=== PATIENT | female | born 1975 | race Caucasian/White ===

== ENCOUNTER 2017-05-06 08:22 | Observation (INO) | payer OTHER, SELFPAY ==
[2017-05-06] VITALS (7 sets, daily range): BP systolic 101–145; BP diastolic 60–90; PULSE 71–105; RESP 16–26; TEMP 37.1–37.3; O2SAT 97–100; BMI 26.8; BMI 26.4
--- NOTE | 2017-05-06 08:40 | EKG12_ITS ---
Test Reason : NECKPAIN Blood Pressure : / mmHG Vent. Rate : 083 BPM Atrial Rate : 083 BPM P-R Int : 152 ms QRS Dur : 072 ms QT Int : 364 ms P-R-T Axes : 066 065 074 degrees QTc Int : 427 ms Normal sinus rhythm Nonspecific T wave abnormality Abnormal ECG Confirmed by JOSE HUGGINS, JOSE ([id number]), editor sound ARIELLE DIANE ([id number]) on 05/10/2017 4:22:11 PM Referred By: Russell Mccray Confirmed By:OJSE GARCIA MD
--- NOTE | 2017-05-06 08:43 | CT_ITS ---
STUDY: CTA CHEST REASON FOR EXAM: Female, 41 years old. Back pain and left upper extremity pain. RADIATION DOSAGE (If Supplied By Facility): CTDIvol = ( 6.65 ) mGy, DLP = ( 327.94 ) mGycm TECHNIQUE: The examination was performed with the intravenous administration of 100 ml of Isovue 300 contrast material. Post-processing of the angiographic images was performed, with multiplanar reformation and 3D reconstruction. Individualized dose optimization techniques were used for this CT. COMPARISON: None. FINDINGS: Normal enhancement of the main pulmonary artery and right and left pulmonary arteries. Normal enhancement of the bilateral peripheral pulmonary arteries. There is no demonstrated pulmonary embolism. Normal thoracic aorta and visualized great vessels. There is no demonstrated aortic dissection. Normal heart and pericardium. Normal mediastinum. Normal hilar regions. Normal visualized trachea and bronchi. The lungs are well expanded. Normal pulmonary parenchyma. Normal pleura. Normal chest wall structures. Normal osseous structures. Normal visualized upper abdomen. CT/CTA Abdomen W/WO Contrast IMPRESSION: Normal CTA chest examination, without a demonstrated pulmonary embolism or arterial dissection. Electronically Signed: Iain Rose MD at 10:53 EST Tel [phone], Service support ,
--- NOTE | 2017-05-06 08:43 | CT_ITS ---
STUDY: CTA CHEST REASON FOR EXAM: Female, 41 years old. Back pain and left upper extremity pain. RADIATION DOSAGE (If Supplied By Facility): CTDIvol = ( 6.65 ) mGy, DLP = ( 327.94 ) mGycm TECHNIQUE: The examination was performed with the intravenous administration of 100 ml of Isovue 300 contrast material. Post-processing of the angiographic images was performed, with multiplanar reformation and 3D reconstruction. Individualized dose optimization techniques were used for this CT. COMPARISON: None. FINDINGS: Normal enhancement of the main pulmonary artery and right and left pulmonary arteries. Normal enhancement of the bilateral peripheral pulmonary arteries. There is no demonstrated pulmonary embolism. Normal thoracic aorta and visualized great vessels. There is no demonstrated aortic dissection. Normal heart and pericardium. Normal mediastinum. Normal hilar regions. Normal visualized trachea and bronchi. The lungs are well expanded. Normal pulmonary parenchyma. Normal pleura. Normal chest wall structures. Normal osseous structures. Normal visualized upper abdomen. CT/CTA Chest W/WO Contrast IMPRESSION: Normal CTA chest examination, without a demonstrated pulmonary embolism or arterial dissection. Electronically Signed: Iain Rose MD at 10:53 EST Tel [phone], Service support ,
--- NOTE | 2017-05-06 08:54 | ED.DCSUM_ITS ---
- ER Visit Summary Date of Service: 05/06/17 Chief Complaint: Back pain History of Present Illness: The patient is a 41 F presenting with severe pain in her low back bilateral buttocks radiating all the way down both legs simultaneously, started gradually yesterday when she woke up for a nap in the afternoon, gradually worsening, did not notice left upper extremity involvement until this morning, no right upper extremity involvement. She states she has pain in her left shoulder and all the way down her left arm involving her entire hand, it is numb and painful and all of these 3 extremities. Any movement makes the pain worse. She has not noticed weakness of her legs, but the pain is so severe that she does not want to move anything anyway. She denies any abdominal or chest pain. No upper back or neck pain. No recent injuries, overuse, heavy lifting, or any other physical activity that she can think of to explain the symptoms. No bowel or bladder dysfunction symptoms. Never had anything like this before, has no chronic back issues. 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 She had a DVT in 1 of her legs at one point in time when she was doing a lot of sitting for a [email or web address] sports tournament, she had swelling with that, it was treated that was remote and she has no symptoms like that now. Other than that, she takes medications for migraines and no other medical problems. Further history obtained a little later adds that she has had some mild soreness in both of her legs off and on for the last few days, but it would go away. The last time she had those symptoms, she was concerned she was having recurrence of her DVT and had an ultrasound of her lower extremities that were negative for DVT. Physical Examination: In painful distress, very anxious, hyperventilating. Tearful. Blood pressure 145/90, heart rate 105, respirations 26, afebrile with pulse ox 100 on room air. She screams in severe pain with barely touching her lower extremities, performing DTRs, and barely moving her toes or foot. Given this, I was not able to perform straight leg raises, but her DTRs are normal, her pulses are normal and symmetric, and her toes are downgoing with no clonus. She does not want to move anything because it hurts too bad to do so, so strength testing in the lower extremities is limited. Sensation is grossly intact but she states things feel tingly and symmetrically. Similar exam in the left upper extremity although strength is excellent and symmetric with the right as are her pulses. There are no rashes or abnormal skin findings or color. She can turn her neck without any difficulty or pain. It is nontender. No meningismus. She is able to rollover with assistance, but it hurt her, she has some tenderness in the sciatic notches bilaterally but nowhere else, there are no rashes. No CVA tenderness. Abdomen is benign with no pulsatile mass. Heart is regular and if she has equal breath sounds bilaterally, but the rest of the thoracic exam is limited secondary to the patient moaning and crying. Test Results: EKG is normal with sinus rhythm at 83. Labs including troponin unremarkable. CTA chest, abdomen, pelvis negative. Emergency Department Course and Treatment: Aortic dissection was ruled out as cause for the symptoms. After her pain was controlled with morphine, I reevaluated her, she has motor weakness in both lower extremities, without being limited by pain. I discussed with neurology Dr. Mitchell, who evaluated her in the ED, and advised that her reflexes were normal but she truly was weak in her lower extremities and he recommended STAT MRI of the low back, but also of the brain and cervical spine, given her all of her symptoms, with and without contrast. Disposition will be pending the results of MRI. At this time patient is comfortable. Disposition: Pending MRI results Impression: Acute low back pain Bilateral lower extremity weakness and paresthesias Left upper extremity paresthesias This note was generated with [employer] dictation software. It may contain incorrect words, spelling, and punctuation that were not noted in review of the chart prior to signing ED Disposition - Plan for ED Patient: Chief Complaint: Back Referrals: Joon Han [Family Provider] -
[2017-05-06] MEDS: Ondansetron 4 MG/2 ML Vial IV (08:58)
[2017-05-06 09:22] LABS: Anion Gap 10 (5-15); BUN 8 mg/dL (7-18); BUN/Creat Ratio 8.7 RATIO (10-20); Calcium,Total 8.8 mg/dL (8.5-10.1); Chloride 107 mmol/L (98-107); Creatinine, Serum 0.92 mg/dL (0.55-1.02); EST Glomerular Filtration Rate 72 mL/min (>60); Est Glom Filt Rate - Afr Amer 87 mL/min (>60); Estimated Creatinine Clearance 76.09 ml/min; Glucose 121 mg/dL (74-106); Potassium 3.5 mmol/L (3.5-5.1); Sodium Level 137 mmol/L (136-145)
[2017-05-06 09:41] LABS: Absolute Lymphocyte Count 0.57 X10^3/ul (0.83-4.51); Basophil# 0.01 X10^3/uL; Basophil% 0.1 % (0-1); Hematocrit 38.6 % (37-47); Hemoglobin 13.1 g/dl (12.0-15.0); Lymphocyte # 0.57 X10^3/ul (4.0); Lymphocyte % 4.4 % (19-41); Mean Corp Hgb Conc 33.9 g/gl (32-36); Mean Corpuscular Hgb 28.7 pg (27.0-32.0); Mean Corpuscular Volume 84.5 fL (81-99); Mean Platelet Vol. 10.7 fl (6.2-12.0); Monocyte# 0.42 X10^3/uL; Monocyte% 3.2 % (0-10); Neutrophil % 92.1 % (47-70); Platelet Count 211 K/mm3 (150-450); RBC Distribution Width SD 39.9 fl (35.1-43.9); Red Blood Count 4.57 M/mm3 (4.2-5.4)
[2017-05-06 09:42] LABS: Differential Indicated SCAN CRITERIA MET; POSITIVE COUNT NO; POSITIVE DIFFERENTIAL YES; POSITIVE MORPHOLOGY NO
--- NOTE | 2017-05-06 12:22 | MRI_ITS ---
STUDY: MRI LUMBAR SPINE WITH AND WITHOUT CONTRAST REASON FOR EXAM: Female, 41 years old. Bilateral lower extremity weakness. TECHNIQUE: Standardized fat and water weighted pulse sequences were obtained in the sagittal and axial planes. 7.5 ml of Gadavist contrast material was administered for the contrast portion of the examination. COMPARISON: None FINDINGS: T12-L1: Normal endplates. Normal disc height, signal and morphology. Normal bilateral facet joints. Normal central canal and bilateral lateral recesses. Normal bilateral intervertebral neural foramina. Normal lumbar lordosis. There is no substantial scoliosis. Normal conus medullaris that terminates at the L1-2 level. L1-2: Normal endplates. Normal disc height, signal and morphology. Normal bilateral facet joints. Normal central canal and bilateral lateral recesses. Normal bilateral intervertebral neural foramina. L2-3: Normal endplates. Normal disc height, signal and morphology. Normal bilateral facet joints. Normal central canal and bilateral lateral recesses. Normal bilateral intervertebral neural foramina. L3-4: Normal endplates. Normal disc height, signal and morphology. Normal bilateral facet joints. Normal central canal and bilateral lateral recesses. Normal bilateral intervertebral neural foramina. L4-5: Normal endplates. Normal disc height, signal and morphology. Normal bilateral facet joints. Normal central canal and bilateral lateral recesses. Normal bilateral intervertebral neural foramina. L5-S1: Normal endplates. Normal disc height, signal and morphology. Normal bilateral facet joints. Normal central canal and bilateral lateral recesses. Normal bilateral intervertebral neural foramina. Normal visualized sacral ala. Normal visualized paraspinous soft tissue structures. There is no demonstrated abnormal enhancement. MRI/Spine Lumbar W/WO Contrast IMPRESSION: Normal enhanced and unenhanced MR examination of the lumbar spine. Electronically Signed: Marissa Cuenca MD at 16:58 EST , Service support ,
--- NOTE | 2017-05-06 12:22 | MRI_ITS ---
STUDY: MRI BRAIN WITH AND WITHOUT CONTRAST REASON FOR EXAM: Female, 41 years old. Bilateral lower extremity weakness. Questionable Guillian Mico. TECHNIQUE: Standardized multiplanar fat and water weighted pulse sequences were obtained. 7.5 ml of Gadavist contrast material was administered intravenously for the contrast portion of the examination. Several images are limited by patient motion. COMPARISON: None. FINDINGS: Normal size of the ventricles and extra-axial spaces for the patient's age. Normal white matter tracts of the supratentorial brain. There is no evidence for recent intracranial ischemia or other cause of cytotoxic edema on diffusion weighted imaging (DWI). Normal T2* images of the brain without demonstrated susceptibility artifact. There is no demonstrated hemosiderin stain. Normal bilateral basal ganglia. Normal thalami. There is no extra-axial fluid accumulation. Normal flow voids within the major intracranial circulation suggesting patency by spin echo criteria. Normal venous enhancement. There is questionable leptomeningeal enhancement involving the left cerebellum and occipital lobe. There is also questionable subtle leptomeningeal enhancement involving the occipital lobes and inferior cerebral hemispheres.. Normal sella turcica, pituitary gland, infundibular stalk, optic chiasm and hypothalamus. Normal tectal plate and pineal gland. Normal midbrain, jung and medulla. Normal cerebellum. Normal basal cisterns. Normal bilateral temporal bones. Normal bilateral internal auditory canals. No demonstrated orbital abnormality, within the constraints of a routine brain study. There is mucoperiosteal inflammatory disease of the paranasal sinuses consistent with mild chronic sinusitis. Normal calvarium and skull base. Normal visualized soft tissue structures. Normal visualized upper cervical spine. MRI/Brain W/WO Contrast IMPRESSION: Questionable leptomeningeal enhancement involving the posterior fossa and occipital lobes. This could be the result of meningitis. Suggest clinical correlation and correlation with lumbar puncture. Electronically Signed: Marissa Cuenca MD at 16:46 EST , Service support ,
--- NOTE | 2017-05-06 12:22 | MRI_ITS ---
STUDY: MRI CERVICAL SPINE WITH AND WITHOUT CONTRAST REASON FOR EXAM: Female, 41 years old. Bilateral lower extremity and left upper extremity weakness with numbness and headache. TECHNIQUE: Standardized fat and water weighted pulse sequences were obtained in the sagittal and axial following I.V. administration of 7.5 ml of Gadavist contrast material. COMPARISON: Prior comparison studies are not available for review at this time. FINDINGS: Normal foramen magnum and brainstem-cervical cord junction. Normal craniovertebral junction. Normal anterior atlantoaxial articulation. Normal odontoid process. Normal cervical lordosis. Normal vertebral bodies and posterior osseous elements. C2-3: Normal endplates. Normal disc height, signal and morphology. Normal central canal and intervertebral neural foramina. C3-4: Normal endplates. Normal disc height, signal and morphology. Normal central canal and intervertebral neural foramina. C4-5: Normal endplates. Normal disc height, signal and morphology. Normal central canal and intervertebral neural foramina. C5-6: Normal endplates. Normal disc height, signal and morphology. Normal central canal and intervertebral neural foramina. C6-7: Normal endplates. Normal disc height, signal and morphology. Normal central canal and intervertebral neural foramina. C7-T1: Normal endplates. Normal disc height, signal and morphology. Normal central canal and intervertebral neural foramina. Normal cervical cord. There is no demonstrated cervical cord syrinx cavity. Normal visualized soft tissue structures. MRI/Spine Cervical W/WO Contrast IMPRESSION: Normal unenhanced and enhanced MR examination of the cervical spine. Electronically Signed: Marissa Cuenca MD at 16:51 EST , Service support ,
[2017-05-06 12:42] LABS: AST(SGOT) 12 U/L (15-37); Alanine Aminotransfer ALT/SGPT 17 U/L (13-56); Albumin, Serum 3.8 g/dL (3.2-5.0); Alkaline Phosphatase 50 U/L (45-117); Bilirubin, Direct 0.19 mg/dL (0.00-0.30); Protein, Total 7.8 g/dL (6.4-8.2)
[2017-05-06] MEDS: Ketorolac 30 MG/ML Syringe IV ×2 (13:41→21:12)
--- NOTE | 2017-05-06 14:34 | CON.PCM_ITS ---
Problem List (1) Lumbar radicular pain Status: Acute (2) Weakness of both legs Status: Acute Reason for Consult Date of Consultation: 05/06/17 Reason for Consultation: severe lower back pain, with radicular symptoms and weakness of the legs History of Present Illness: The patient is a 41 year old CF with PMH Migraines, H/O DVT admitted with severe low back pain with radicular symptoms and weakness of the legs. Per patient she went for the nap yesterday (05/05/17) and woke up at around 4 pm and started having severe lower back pain, was getting worse through the night, and this morning she was unable to walk and had to hold on to stuff to walk, felt it was due to weakness and severe pain in the back radiating to the legs, denies any urinary incontinence or bowel incontinence. She also complaints of tingling numbness in both LE, left worse than right, also feels there is tingling and numbness in the right UE but denies any arm weakness or severe neck pain at present. Has severe KILGORE at present, left sided, with photophobia and phonophobia, has had nausea with the KILGORE, has migraines about 2 times a month , is not on any preventative, per patient may take imitrex as needed. 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 [] Past Medical History Allergies No Known Allergies Allergy (Verified 05/06/17 08:27) Home Medications: Ambulatory Orders Medication Instructions Recorded Acetaminophen/Codeine #3 1 tablet PO Q6H PRN PRN 05/06/17 [Tylenol#3] Lives: With Family Smoking Status: Never smoker Alcohol: None Drugs: None - *Family History Maternal History Items: No pertinent history Review of Systems Constitutional: Reports: - - complete ROS negative except as documented in HPI Patient Problems: Active and Suspected Problems (Last Reviewed 02/11/17 @ 15:28 by Parvin Us) Lumbar radicular pain (Acute) Weakness of both legs (Acute) Acute low back pain (Acute) Migraine (Acute) - Physical Exam General: Alert, Oriented x3, Cooperative HEENT: Atraumatic, PERRLA, EOMI, Normocephalic Neck: Supple, No JVD, Negative Carotid Bruits Lungs: Clear to auscultation, Normal air movement Cardiovascular: Regular rate, No murmurs Abdomen: Bowel Sounds Present, Soft, Non Tender Extremities: No edema, Capillary Refill Less than 3 Seconds Skin: No rashes, No breakdown Musculoskeletal: No Tenderness to Palpation of Joints or Extremities Neurological: - - consious, alert, CN 2-12 grossly intact, power 5/5 both UE, 3/ 5 both LE limited by pain and weakness, decreased sensation to light touch in the left LE below the knee, no sensory level at the torso, no abnormal joint position virbation on examination, has severe pain and SLRT could not be done, Reflexes +2 B/L B/S/T anad +3 B/L K/A, no clonus, plantars B/L Flexor, no cerebellar signs, gait deferred, fundus not visualized. Psych/Mental Status: Normal Affect, Appropriate Vital Signs Temp Pulse Resp BP Pulse Ox 98.8 F 84 16 125/76 H 97 05/06/17 08:23 05/06/17 13:43 05/06/17 13:43 05/06/17 13:43 05/06/17 13:43 Oxygen Delivery Method Room Air Weight: 75.4 kg Body Mass Index (BMI) 26.8 Laboratory Tests Past 24 Hrs 05/06/17 05/06/17 05/06/17 08:55 08:55 08:55 WBC 13.0 H RBC 4.57 Hgb 13.1 Hct 38.6 MCV 84.5 MCH 28.7 MCHC 33.9 RDW 13.0 RDW Differential 39.9 Plt Count 211 MPV 10.7 Immature Gran % (Auto) 0.200 Neut % (Auto) 92.1 H Lymph % (Auto) 4.4 L Blair % (Auto) 3.2 Eos % (Auto) 0.0 Baso % (Auto) 0.1 Absolute Neuts (auto) 12.0 H Absolute Lymphs (auto) 0.57 L Total Counted Not Reportable Differential Comment Sodium 137 Potassium 3.5 Chloride 107 Carbon Dioxide 20.0 L Anion Gap 10 BUN 8 Creatinine 0.92 Estim Creat Clear Calc 76.09 Est GFR (MDRD) Af Amer 87 Est GFR (MDRD) Non-Af 72 BUN/Creatinine Ratio 8.7 L Glucose 121 H Calcium 8.8 Total Bilirubin 0.80 Direct Bilirubin 0.19 AST 12 L ALT 17 Alkaline Phosphatase 50 Troponin I < 0.02 Total Protein 7.8 Albumin 3.8 Globulin 4.0 Assessment/Plan Active and Suspected Problems (Last Reviewed 02/11/17 @ 15:28 by Parvin Us) Lumbar radicular pain (Acute) Weakness of both legs (Acute) Acute low back pain (Acute) Migraine (Acute) The patient is a 41 year old CF with PMH Migraines, H/O DVT admitted with severe low back pain with radicular symptoms and weakness of the legs. Per patient she went for the nap yesterday (05/05/17) and woke up at around 4 pm and started having severe lower back pain, was getting worse through the night, and this morning she was unable to walk and had to hold on to stuff to walk, felt it was due to weakness and severe pain in the back radiating to the legs, denies any urinary incontinence or bowel incontinence. She also complaints of tingling numbness in both LE, left worse than right, also feels there is tingling and numbness in the right UE but denies any arm weakness or severe neck pain at present. Denies any trauma or lifting heavy weight. Has severe KILGORE at present, left sided, with photophobia and phonophobia, has had nausea with the KILGORE, has migraines about 2 times a month, is not on any preventative, per patient may take imitrex as needed. 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 Impression R/O Lumbar radiculopathy vs Compressive myelopathy Unlikely to be GBS at present. Migraine with aura, intractable ?Complicate Migraine Plan -Recommend MRI brain, MRI C spine and MRI L spine w/w/o contrast -Recommend MRI Thoracic spine -Recommend Depakote 1 g IV BID for 48 hours for KILGORE -Recommend Decadron 4 mg IV q 6 hrly for 48 hrs for KILGORE -Recommend Magnesium sulphate 1 g iv once for KILGORE -Recommend Toradol 30 mg IV q 6 hrly prn pain and KILGORE for 24 hrs. -Recommend avoiding triptans due to the h/o DVT in the past. -Further recommendation based on neuroimaging findings -Further medical management per ED and primary team -Fall precautions. -Follow up with Neurology as outpatient for KILGORE in 4-6 weeks after discharge. -GI/DVT prophylaxis -please call with questions if any -Thank you for allowing us to participate in patients care and management I spent 60 minutes of critical care time taking history, doing physical examination, reviewing medical records, coordinating care and counseling patient and her mother. Code Visit Inpatient E&M: 67782 Init Hosp L3
--- NOTE | 2017-05-06 18:02 | HP.PCM_ITS ---
Problem List (1) Acute low back pain Status: Acute Qualifiers: Sciatica laterality: sciatica laterality unspecified (2) Migraine Status: Acute Qualifiers: Migraine type: unspecified Status migrainosus presence: without status migrainosus (3) Lumbar radicular pain Status: Acute (4) Weakness of both legs Status: Acute History of Present Illness Date of Admission: 05/06/17 Chief Complaint: low back pain, bilateral leg weakness The patient is a 41 year old F with past medical history of migrainous headache , remote history of DVT who comes in with acute CVA low back pain which radiate when she woke up from a nap. She denies lifting any heavy objects although she admits to carrying her 30 pound youngest child a lot on her hips. She admits that the pain got worse over the night and in the morning she had to hold onto objects to walk. She noticed this morning that her left upper extremity felt numb and had tingling sensation as well as weakness. She admitted also to photophobia as well as headaches with nausea a This headache feels very much like her usual migraine headache. Patient's vitals in the ED were normal. She was seen by the neurologist in the ED and had STAT imaging of the brain, neck and lumbar spine that were all normal except for a report of leptomeningeal enhancement involving the posterior fossa and occipital lobes which was read as meningitis. She was felt by both ED and neurologist not to have meningitis. She however underwent lumbar puncture and I saw her subsequently. 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 Denies: Fever, Malaise, Weight Change Eyes: Denies: Blurred vision, Cataracts, Conjunctivae Inflammation, Pain, Redness, Vision Change HEENT: Reports: Head Aches. Denies: Difficulty Hearing, Difficulty Swallowing, Dysphasia, Hearing Changes, Sinus Congestion, Sinus Drainage, Sore Throat Cardiovascular: Denies: Chest Pain, Claudication, Heaviness, Light Headedness, Orthopnea, Palpitations, Paroxysmal Noc. Dyspnea, Syncope Respiratory: Denies: Cough, Hemoptysis, Shortness of breath at rest, Shortness of breath upon exertion, Sputum production Gastrointestinal: Denies: Abdominal Pain, Constipation, Hematemesis, Hematochezia, Nausea, Vomiting Genitourinary: Denies: Dysuria, Frequency, Incontinence Musculoskeletal: Denies: Joint Pain, Joint stiffness, Joint swelling, Joint Tenderness Skin: Denies: Rash, Wounds Neurological: Denies: Difficulty swallowing, Focal weakness, Numbness, Tingling Psychiatric: Denies: Anxiety, Depression, Homicidal Ideations, Suicidal Ideations Hematologic/ Lymphatic: Denies: Easy Bruising, Easy Bleeding VTE Information - Inpt Only VTE Present on Admission: No VTE Pharm Prophylaxis ordered?: Yes Patient Problems: Active and Suspected Problems (Last Reviewed 02/11/17 @ 15:28 by Parvin Us) Lumbar radicular pain (Acute) Weakness of both legs (Acute) Acute low back pain (Acute) Migraine (Acute) - Physical Exam General: Alert, Oriented x3, Cooperative, - - in some pain after Lumbar puncture HEENT: Atraumatic, PERRLA, EOMI, Normocephalic Oral: Moist Mucosa Neck: Trachea Midline, - - Did not examine as she was soon after lumbar puncture Lungs: Clear to auscultation, Normal air movement Cardiovascular: Regular rate, Regular Rhythm, Normal S1, Normal S2, No murmurs Abdomen: Bowel Sounds Present, Soft, Non Tender, Non-Distended, No Hepato- splenomegaly Extremities: No edema Skin: No rashes Musculoskeletal: No Tenderness to Palpation of Joints or Extremities Lymphatic: No Cervical, Supraclavicular, or Inguinal Adenopathy Neurological: Cranial nerves II-XII grossly intact, Motor Exam 5/5 strength throughout - in both UE, 3/5 in both LE, limited also by pain, did not check for meningeal signs as she was in pain, post spinal tap. Psych/Mental Status: Normal Affect, Appropriate Vital Signs Temp Pulse Resp BP Pulse Ox 98.8 F 84 16 125/76 H 97 03/02/18 08:23 05/06/17 13:43 05/06/17 13:43 05/06/17 13:43 05/06/17 13:43 Oxygen Delivery Method Room Air Weight: 75.4 kg Body Mass Index (BMI) 26.8 Laboratory Tests Past 24 Hrs 05/06/17 05/06/17 05/06/17 08:55 08:55 08:55 WBC 13.0 H RBC 4.57 Hgb 13.1 Hct 38.6 MCV 84.5 MCH 28.7 MCHC 33.9 RDW 13.0 RDW Differential 39.9 Plt Count 211 MPV 10.7 Immature Gran % (Auto) 0.200 Neut % (Auto) 92.1 H Lymph % (Auto) 4.4 L [place] % (Auto) 3.2 Eos % (Auto) 0.0 Baso % (Auto) 0.1 Absolute Neuts (auto) 12.0 H Absolute Lymphs (auto) 0.57 L Total Counted Not Reportable Differential Comment Sodium 137 Potassium 3.5 Chloride 107 Carbon Dioxide 20.0 L Anion Gap 10 BUN 8 Creatinine 0.92 Estim Creat Clear Calc 76.09 Est GFR (MDRD) Af Amer 87 Est GFR (MDRD) Non-Af 72 BUN/Creatinine Ratio 8.7 L Glucose 121 H Calcium 8.8 Total Bilirubin 0.80 Direct Bilirubin 0.19 AST 12 L ALT 17 Alkaline Phosphatase 50 Troponin I < 0.02 Total Protein 7.8 Albumin 3.8 Globulin 4.0 Assessment/Plan Active and Suspected Problems (Last Reviewed 02/11/17 @ 15:28 by Parvin Us) Lumbar radicular pain (Acute) Weakness of both legs (Acute) Acute low back pain (Acute) Migraine (Acute) 41 year old F with past medical history of migrainous headache, remote history of DVT who comes in with acute CVA low back pain which radiate when she woke up from a nap. 1. Acute low back pain/radicular pain, likely musculoskeletal, MRI of C-spine and lumbar spine negative Plan: Admit to Medsurg for pain control, IV decadron, toradol per neurology recommendations. 2. Acute migrainous headache, will be given depakote IV, magnesium, and decadron. 3. Abnormal MRI brain with findings suggestive of possible meningitis, s/p lumbar puncture, results pending, if suggestive of meningitis, antibiotics will be started. 4. h/o remote DVT 5. DVT PPX -Lovenox SC Code Visit Inpatient E&M: 38698 Init Hosp L3
[2017-05-06 19:39] LABS: Body Fluid Mononuclear WBC # 0.001 10^3/uL; Total Cell Count CSF 0.001 10^3/uL (0.000-0.000); White Count, CSF 0.001 10^3/uL (0.000-0.000)
[2017-05-06 20:15] LABS: Auto B Fluid Analyzer BKGD Ct COUNTS W/IN LIMITS (W/IN LIMITS); Tested Tube # 4
[2017-05-06 20:16] LABS: Appearance CSF (character) CLEAR (Clear); Body Fluid QC Type(s) BF2Q; CSF Color COLORLESS (Colorless); RBC Count, Spinal Fluid 55 /mm-3 (None seen)
[2017-05-06 20:17] LABS: Glucose Spinal Fluid 62 mg/dL (40-75)
[2017-05-06] MEDS: Acetaminophen/Codeine #3 Tablet 1 TABLET PO (21:01)
[2017-05-07 01:00] VITALS: BP 101/60; PULSE 70; RESP 16; TEMP 36.4; O2SAT 99
[2017-05-07 05:51] LABS: Absolute Lymphocyte Count 0.54 X10^3/ul (0.83-4.51); Absolute Neutrophil Count 12.4 X10^3/uL (2.0-7.7); Basophil# 0.01 X10^3/uL; Basophil% 0.1 % (0-1); Hematocrit 37.7 % (37-47); Hemoglobin 12.3 g/dl (12.0-15.0); Lymphocyte # 0.54 X10^3/ul (4.0); Lymphocyte % 4.1 % (19-41); Mean Corp Hgb Conc 32.6 g/gl (32-36); Mean Corpuscular Hgb 28.4 pg (27.0-32.0); Mean Corpuscular Volume 87.1 fL (81-99); Mean Platelet Vol. 10.6 fl (6.2-12.0); Monocyte# 0.33 X10^3/uL; Monocyte% 2.5 % (0-10); Neutrophil # 12.38 X10^3/uL (2.7-7.7); Neutrophil % 93.1 % (47-70); Platelet Count 186 K/mm3 (150-450); RBC Distribution Width CV 13.4 % (11.6-14.6); RBC Distribution Width SD 41.9 fl (35.1-43.9); Red Blood Count 4.33 M/mm3 (4.2-5.4); White Blood Count 13.3 K/mm3 (4.4-11.0)
[2017-05-07 05:53] LABS: Differential Indicated SCAN CRITERIA MET; POSITIVE COUNT NO; POSITIVE DIFFERENTIAL YES; POSITIVE MORPHOLOGY NO
[2017-05-07 06:02] LABS: Anion Gap 6 (5-15); BUN 9 mg/dL (7-18); BUN/Creat Ratio 11.4 RATIO (10-20); Calcium,Total 8.2 mg/dL (8.5-10.1); Chloride 105 mmol/L (98-107); Creatinine, Serum 0.79 mg/dL (0.55-1.02); EST Glomerular Filtration Rate 85 mL/min (>60); Est Glom Filt Rate - Afr Amer 103 mL/min (>60); Estimated Creatinine Clearance 88.62 ml/min; Glucose 136 mg/dL (74-106); Sodium Level 137 mmol/L (136-145)
[2017-05-07] MEDS: Ketorolac 30 MG/ML Syringe IV ×4 (06:13→23:41)
--- NOTE | 2017-05-07 07:18 | MRI_ITS ---
STUDY: MRI THORACIC SPINE WITHOUT CONTRAST REASON FOR EXAM: Female, 41 years old. Neck pain. Patient has left upper extremity weakness. TECHNIQUE: Standardized fat and water weighted pulse sequences were obtained in the sagittal and axial planes. Several images are limited by patient motion. COMPARISON: CT of the chest dated May 06, 2017. FINDINGS: Normal kyphosis of the thoracic spine. There is no substantial scoliosis. T1-2, T2-3, T3-4, T4-5, T5-6, T6-7, T7-8, T8-9, T9-10, T10-11, T11-12: Normal endplates. Normal disc signal, heights and morphology of the corresponding intervertebral discs. Normal central canal and intervertebral neural foramina at the corresponding levels. Normal visualized thoracic cord. Normal conus medullaris that terminates at the L1 level.. The soft tissue structures are unremarkable. There is bilateral basilar dependent atelectasis. MRI/Spine Thoracic (Routine) IMPRESSION: No MR evidence for nerve impingement or significant canal stenosis. Electronically Signed: Marissa Cuenca MD at 11:34 EST , Service support ,
--- NOTE | 2017-05-07 07:34 | PCM.PN.HOSP ---
Patient Problems: Active and Suspected Problems (Last Reviewed 02/11/17 @ 15:28 by Parvin Us) Lumbar radicular pain (Acute) Weakness of both legs (Acute) Acute low back pain (Acute) Migraine (Acute) Subjective: Patient with no acute events overnight per self and per nursing report. She notes marked improvement since initial presentation especially following magnesium. She states mild paresthesias in her bilateral upper extremities and lower extremities but minimal and only in the distal ends near resolution of prior complaint of weakness and pain. Complete resolution of prior migraine with photophobia and phonophobia. Plan which included await lumbar spine and if unremarkable plan discharge to home on current regimen per discussion also with neurology. Patient denies fevers, chills, nausea, emesis, abdominal pain, chest pain or dyspnea. Objective: Physical Examination: General: awake, alert, oriented x 3 and cooperative, seated upright in bedside chair, in no apparent distress. Skin: normal color, turgor, no icterus, cyanosis. HEENT: AT/NC, EOMI, PERRLA, MMM. Lungs: CTA bilaterally, moderate effort, mild decrease BL bases, no rales, ronchi or wheezing. Heart: Regular rate and rhythm; no gallop, rub audible. Abdomen: soft, NTTP, ND, normal BS. Extremities: no cyanosis, clubbing, or edema. Neurological: patient awake, alert, oriented x 3; cognitive function intact; pupils equally reactive to light and accomodation; cranial nerves II-XII grossly normal, moving all 4 extremities, no focal deficits, strength preserved, notes subjective paresthesias only distally U/L extremities. Psychiatric: affect appears normal, no acute evidence of depressive or anxiety feelings. Vitals/I&O's: Vital Signs Temp Pulse Resp BP Pulse Ox 97.5 F L 70 16 101/60 99 05/07/17 01:00 05/07/17 01:00 05/07/17 01:00 05/07/17 01:00 05/07/17 01:00 Oxygen Delivery Method Room Air Weight: 163 lb 12.855 oz Body Mass Index (BMI) 26.4 Intake and Output for Last 24 Hours 05/05/17 05/06/17 05/07/17 23:59 23:59 23:59 Intake Total 440 / 440 Output Total 800 / 800 Balance -360 / -360 Microbiology Past 72 Hours 05/06/17 18:45 Csf, Spinal Fluid Gram Stain - Preliminary Laboratory Results 05/06/17 18:45: CSF Glucose 62, CSF Total Protein 36.0 05/06/17 18:45: Fld Polynuclear WBCs # 0.000, Fld Polynuclear WBCs % 0.0, Fluid Mononuclear WBCs 0.001, Fld Mononuclear WBCs % 100.0, CSF Appearance CLEAR, CSF Color COLORLESS, CSF WBC 0.001 H, CSF RBC 55 H, CSF Cell Count Tube # 4, CSF Total Cell Counted 0.001 H, CSF Comment May follow 05/07/17 05:24: WBC 13.3 H, RBC 4.33, Hgb 12.3, Hct 37.7, MCV 87.1, MCH 28.4, MCHC 32.6, RDW 13.4, RDW Differential 41.9, Plt Count 186, MPV 10.6, Immature Gran % (Auto) 0.200, Neut % (Auto) 93.1 H, Lymph % (Auto) 4.1 L, [place] % (Auto) 2.5, Eos % (Auto) 0.0, Baso % (Auto) 0.1, Absolute Neuts (auto) 12.4 H, Absolute Lymphs (auto) 0.54 L, Total Counted Not Reportable 05/07/17 05:24: Sodium 137, Potassium 4.0, Chloride 105, Carbon Dioxide 26.0, Anion Gap 6, BUN 9, Creatinine 0.79, Estim Creat Clear Calc 88.62, Est GFR (MDRD) Af Amer 103, Est GFR (MDRD) Non-Af 85, BUN/Creatinine Ratio 11.4, Glucose 136 H, Calcium 8.2 L Current Medications Acetaminophen/Codeine Phosphate (Tylenol#3) 1 tablet PO Q6H PRN PRN PRN Reason: HEADACHE Last Admin: 05/06/17 21:01 Dose: 1 tablet Al Hydroxide/Mg Hydroxide (Mylanta Ii) 30 ml PO Q6H PRN PRN PRN Reason: Gastric burning Bisacodyl (Dulcolax) 5 mg PO DAILY PRN PRN PRN Reason: Constipation Dexamethasone Sodium Phosphate (Decadron) 4 mg IV Q6 TODD Stop: 05/09/17 00:01 Last Admin: 05/07/17 06:13 Dose: 4 mg Enoxaparin Sodium (Lovenox) 40 mg SC DAILY@1000 TODD Valproic Acid 1,000 mg/ (Dextrose) 60 mls @ 60 mls/hr IV BID [facility] Stop: 06/17/17 22:01 Last Admin: 05/06/17 22:20 Dose: 60 mls/hr Ketorolac Tromethamine (Toradol) 30 mg IV Q6 [facility] Stop: 05/08/17 00:01 Last Admin: 05/07/17 06:13 Dose: 30 mg Loratadine (Claritin) 10 mg PO DAILY TODD Magnesium Hydroxide (Milk Of Magnesia) 30 ml PO DAILY PRN PRN PRN Reason: Constipation Ondansetron HCl (Zofran) 4 mg IV Q8H PRN PRN PRN Reason: NAUSEA Psyllium Hydrophilic Mucilloid (Metamucil) 1 packet PO DAILY PRN PRN PRN Reason: CONSTIPATION Sodium Chloride () 5 - 30 ml IV UD PRN PRN Reason: SALINE FLUSH Assessment/Plan Active and Suspected Problems (Last Reviewed 02/11/17 @ 15:28 by Parvin Us) Lumbar radicular pain (Acute) Weakness of both legs (Acute) Acute low back pain (Acute) Migraine (Acute) The patient is a 41 y/o F w/ PMHx: Migraines, Hx DVT who presents to the [facility] ED on 05/06/17 with onset severe low back pain, BL LE weakness, paresthesias and radicular pain noted to have started ~ 05/05/17, progressively worsening w/ increasing debility with denied change in bowel/bladder patterns with additionally onset RUE paresthesias with L sided headache, facial pain with photophobia and phonophobia with nausea. (1) BL LE, RUE Paresthesias, Weakness, Radiculopathy: In the ED work-up included CTA abd/chest without acute findings, admission CBC 13 with L shift-->05/07/17 CBC w/ WBC 13.3 w/ L shift, CMP not marked aside glucose 121. Patient admitted to [place], treatment as noted of acute migraine, Neurology consulted with work-up including ? leptomeningeal enhancement involving posterior fossa and occipital lobes, ? meningitis, cervical MRI unremarkable, MRI lumbar spine unremarkable. Awaiting Thoracic Spine MRI. LP obtained w/ pending CSF culture, gram stain, WBC 0.001, RBC 55, total cell counted 0.001, glucose 62, protein 36. Remains afebrile. Reviewed imaging w/ Neurology, they do not feel that there is any enhancement present, LP unremarkable, no evidence clinically for GBS or meningitis. If thoracic lumbar spine unremarkable per discussion with Neurology will plan discharge to home. (2) Acute Persistent Intractable Migraine: Neurology consulted, noted #1 work-up, s/p LP, maintained on IV VPA 1000 mg BID hours, IV Decadron 4mg Q6 hours, IV Toradol 30mg Q6 hours prn, add low dose PO Neurontin 100mg TID with meals, avoid triptans given history of remote DVT. Improved status, plan discharge to home on regimen including Depakote ER 500mg QHS, Neurontin 100mg TID with meals x 1 week, Medrol dose pack with Neurology follow-up in 2 weeks. (3) History of DVT: As noted avoid triptans, maintain on prophylaxis. (4) DVT prophylaxis: SCDs, lovenox.
--- NOTE | 2017-05-07 07:46 | PN_ITS ---
Patient Problems: Active and Suspected Problems (Last Reviewed 02/11/17 @ 15:28 by Parvin Us) Lumbar radicular pain (Acute) Weakness of both legs (Acute) Acute low back pain (Acute) Migraine (Acute) Subjective: Patient with no acute events overnight per self and per nursing report. She notes marked improvement since initial presentation especially following magnesium. She states mild paresthesias in her bilateral upper extremities and lower extremities but minimal and only in the distal ends near resolution of prior complaint of weakness and pain. Complete resolution of prior migraine with photophobia and phonophobia. Plan which included await lumbar spine and if unremarkable plan discharge to home on current regimen per discussion also with neurology. Patient denies fevers, chills, nausea, emesis, abdominal pain, chest pain or dyspnea. Objective: Physical Examination: General: awake, alert, oriented x 3 and cooperative, seated upright in bedside chair, in no apparent distress. Skin: normal color, turgor, no icterus, cyanosis. HEENT: AT/NC, EOMI, PERRLA, MMM. Lungs: CTA bilaterally, moderate effort, mild decrease BL bases, no rales, ronchi or wheezing. Heart: Regular rate and rhythm; no gallop, rub audible. Abdomen: soft, NTTP, ND, normal BS. Extremities: no cyanosis, clubbing, or edema. Neurological: patient awake, alert, oriented x 3; cognitive function intact; pupils equally reactive to light and accomodation; cranial nerves II-XII grossly normal, moving all 4 extremities, no focal deficits, strength preserved , notes subjective paresthesias only distally U/L extremities. Psychiatric: affect appears normal, no acute evidence of depressive or anxiety feelings. Vitals/I&O's: Vital Signs Temp Pulse Resp BP Pulse Ox 97.5 F L 70 16 101/60 99 05/07/17 01:00 05/07/17 01:00 05/07/17 01:00 05/07/17 01:00 05/07/17 01:00 Oxygen Delivery Method Room Air Weight: 163 lb 12.855 oz Body Mass Index (BMI) 26.4 Intake and Output for Last 24 Hours 05/05/17 05/06/17 05/07/17 23:59 23:59 23:59 Intake Total 440 / 440 Output Total 800 / 800 Balance -360 / -360 Microbiology Past 72 Hours 05/06/17 18:45 Csf, Spinal Fluid Gram Stain - Preliminary Laboratory Results 05/06/17 18:45: CSF Glucose 62, CSF Total Protein 36.0 05/06/17 18:45: Fld Polynuclear WBCs # 0.000, Fld Polynuclear WBCs % 0.0, Fluid Mononuclear WBCs 0.001, Fld Mononuclear WBCs % 100.0, CSF Appearance CLEAR, CSF Color COLORLESS, CSF WBC 0.001 H, CSF RBC 55 H, CSF Cell Count Tube # 4, CSF Total Cell Counted 0.001 H, CSF Comment May follow 05/07/17 05:24: WBC 13.3 H, RBC 4.33, Hgb 12.3, Hct 37.7, MCV 87.1, MCH 28.4, MCHC 32.6, RDW 13.4, RDW Differential 41.9, Plt Count 186, MPV 10.6, Immature Gran % (Auto) 0.200, Neut % (Auto) 93.1 H, Lymph % (Auto) 4.1 L, [place] % (Auto) 2.5, Eos % (Auto) 0.0, Baso % (Auto) 0.1, Absolute Neuts (auto) 12.4 H, Absolute Lymphs (auto) 0.54 L, Total Counted Not Reportable 05/07/17 05:24: Sodium 137, Potassium 4.0, Chloride 105, Carbon Dioxide 26.0, Anion Gap 6, BUN 9, Creatinine 0.79, Estim Creat Clear Calc 88.62, Est GFR (MDRD ) Af Amer 103, Est GFR (MDRD) Non-Af 85, BUN/Creatinine Ratio 11.4, Glucose 136 H, Calcium 8.2 L Current Medications Acetaminophen/Codeine Phosphate (Tylenol#3) 1 tablet PO Q6H PRN PRN PRN Reason: HEADACHE Last Admin: 05/06/17 21:01 Dose: 1 tablet Al Hydroxide/Mg Hydroxide (Mylanta Ii) 30 ml PO Q6H PRN PRN PRN Reason: Gastric burning Bisacodyl (Dulcolax) 5 mg PO DAILY PRN PRN PRN Reason: Constipation Dexamethasone Sodium Phosphate (Decadron) 4 mg IV Q6 TODD Stop: 05/09/17 00:01 Last Admin: 05/07/17 06:13 Dose: 4 mg Enoxaparin Sodium (Lovenox) 40 mg SC DAILY@1000 TODD Valproic Acid 1,000 mg/ (Dextrose) 60 mls @ 60 mls/hr IV BID [facility] Stop: 06/17/17 22:01 Last Admin: 05/06/17 22:20 Dose: 60 mls/hr Ketorolac Tromethamine (Toradol) 30 mg IV Q6 [facility] Stop: 05/08/17 00:01 Last Admin: 05/07/17 06:13 Dose: 30 mg Loratadine (Claritin) 10 mg PO DAILY TODD Magnesium Hydroxide (Milk Of Magnesia) 30 ml PO DAILY PRN PRN PRN Reason: Constipation Ondansetron HCl (Zofran) 4 mg IV Q8H PRN PRN PRN Reason: NAUSEA Psyllium Hydrophilic Mucilloid (Metamucil) 1 packet PO DAILY PRN PRN PRN Reason: CONSTIPATION Sodium Chloride () 5 - 30 ml IV UD PRN PRN Reason: SALINE FLUSH Assessment/Plan Active and Suspected Problems (Last Reviewed 02/11/17 @ 15:28 by Parvin sU) Lumbar radicular pain (Acute) Weakness of both legs (Acute) Acute low back pain (Acute) Migraine (Acute) The patient is a 41 y/o F w/ PMHx: Migraines, Hx DVT who presents to the [facility] ED on 05/06/17 with onset severe low back pain, BL LE weakness, paresthesias and radicular pain noted to have started ~ 05/05/17, progressively worsening w/ increasing debility with denied change in bowel/bladder patterns with additionally onset RUE paresthesias with L sided headache, facial pain with photophobia and phonophobia with nausea. (1) BL LE, RUE Paresthesias, Weakness, Radiculopathy: In the ED work-up included CTA abd/chest without acute findings, admission CBC 13 with L shift--> CBC w/ WBC 13.3 w/ L shift, CMP not marked aside glucose 121. Patient admitted to [place], treatment as noted of acute migraine, Neurology consulted with work-up including ? leptomeningeal enhancement involving posterior fossa and occipital lobes, ? meningitis, cervical MRI unremarkable, MRI lumbar spine unremarkable. Awaiting Thoracic Spine MRI. LP obtained w/ pending CSF culture, gram stain, WBC 0.001, RBC 55, total cell counted 0.001, glucose 62, protein 36. Remains afebrile. Reviewed imaging w/ Neurology, they do not feel that there is any enhancement present, LP unremarkable, no evidence clinically for GBS or meningitis. If thoracic lumbar spine unremarkable per discussion with Neurology will plan discharge to home. (2) Acute Persistent Intractable Migraine: Neurology consulted, noted #1 work-up , s/p LP, maintained on IV VPA 1000 mg BID hours, IV Decadron 4mg Q6 hours, IV Toradol 30mg Q6 hours prn, add low dose PO Neurontin 100mg TID with meals, avoid triptans given history of remote DVT. Improved status, plan discharge to home on regimen including Depakote ER 500mg QHS, Neurontin 100mg TID with meals x 1 week, Medrol dose pack with Neurology follow-up in 2 weeks. (3) History of DVT: As noted avoid triptans, maintain on prophylaxis. (4) DVT prophylaxis: SCDs, lovenox.
[2017-05-07 08:41] VITALS: BP 103/69; PULSE 64; RESP 16; TEMP 36.6; O2SAT 100
--- NOTE | 2017-05-07 09:36 | NURSING ---
pt off unit for MRI at this time.
[2017-05-07] MEDS: Loratadine 10 MG Tablet PO (10:40)
[2017-05-07] MEDS: Enoxaparin 40 MG/0.4 ML Syringe SC (10:40)
[2017-05-07] MEDS: 0.9% NaCl Peripheral Flush Adult/Peds IV ×4 (10:45→18:34)
--- NOTE | 2017-05-07 10:55 | PCM.DC ---
- Discharge Diagnoses Current Active Problems: Current Active and Chronic Problems (Last Reviewed 02/11/17 @ 15:28 by Parvin Us) Lumbar radicular pain (Acute) Weakness of both legs (Acute) Acute low back pain (Acute) Migraine (Acute) (1) BL LE, RUE Paresthesias, Weakness, Radiculopathy, Suspected Musculoskeletal Etiology in addition to #2, Complex Migraine as noted (2) Acute Persistent Intractable Migraine, Complex (3) History of DVT You will use the following diet at home:: No restrictions Your food should be the consistency of: Regular Your liquids should be the consistency of: Regular/Thin Discharge Activity: Return to Normal Activity May resume sexual activity in: No Restrictions Weight Bearing Status: Weight bearing as tolerated Call your doctor if you observe: Fever of 101 or Higher, Inability to urinate, Inability to have a bowel movement, Shortness of breath, Dizziness, Fainting spells, Chest pain, Uncontrolled pain Instructions: What Are Migraine and Tension Headaches?, How Your Back Works, Relieving Back Pain, Migraines and Cluster Headaches, Self-Care for Headaches, Self-Care for Low Back Pain, Understanding Headache Pain, Migraine Headache: Stages and Treatment, Preventing Migraine Headaches: Triggers, Preventing Migraine Headaches: Medications and Lifestyle Changes, ED Sciatica Allergies/Adverse Reactions: Allergies No Known Allergies Allergy (Verified 05/06/17 08:27) Medications to take at Discharge Divalproex Sodium [Depakote ER] 500 mg PO QHS #30 tab.er.24h 05/07/17 Famotidine [Pepcid] 20 mg PO BID #60 tab 05/07/17 Gabapentin [Neurontin] 100 mg PO TIDCM #21 cap 05/07/17 Meloxicam [Mobic] 15 mg PO DAILY #7 tab 05/07/17 MethylPREDNISolone DosePak [Medrol DosePak] 4 mg PO UD #1 box 05/07/17 The following prescriptions were given: Divalproex Sodium [Depakote ER] 500 mg PO QHS #30 tab.er.24h Meloxicam [Mobic] 15 mg PO DAILY #7 tab MethylPREDNISolone DosePak [Medrol DosePak] 4 mg PO UD #1 box Famotidine [Pepcid] 20 mg PO BID #60 tab Gabapentin [Neurontin] 100 mg PO TIDCM #21 cap Primary Care Physician: Joon Han [Family Provider] - Please follow up with your Primary Care Physician in: Follow-up within 3-5 days to review admission. Please Follow Up With: Fermin Mitchell MD When: Follow-up within 2-4 weeks to review admission. Proposed Discharge Date: 05/07/17
--- NOTE | 2017-05-07 11:37 | PCM.DC.SUM ---
Discharge Date and Diagnosis - Problem List Patient Problems: Active and Suspected Problems (Last Reviewed 02/11/17 @ 15:28 by Parvin Us) Lumbar radicular pain (Acute) Weakness of both legs (Acute) Acute low back pain (Acute) Migraine (Acute) Date of Admission: 05/06/17 Date of Discharge: 05/07/17 - Primary Discharge Diagnosis Active and Suspected Problems (Last Reviewed 02/11/17 @ 15:28 by Parvin Us) Lumbar radicular pain (Acute) Weakness of both legs (Acute) Acute low back pain (Acute) Migraine (Acute) (1) BL LE, RUE Paresthesias, Weakness, Radiculopathy, Suspected Musculoskeletal Etiology in addition to #2, Complex Migraine as noted (2) Acute Persistent Intractable Migraine, Complex (3) History of DVT - Secondary Discharge Diagnosis Chronic Migraines Hx DVT Hospital Course and Treatment Imaging Results: 05/07/17 07:18 Spine Thoracic (Routine) [MRI] Urgent Neurology Dr. Mitchell Operations: None Procedures: None Summary of Care Provided: The patient is a 41 y/o F w/ PMHx: Migraines, Hx DVT who presented to the [facility] ED on 05/06/17 with onset severe low back pain, BL LE weakness, paresthesias and radicular pain noted to have started ~ 05/05/17, progressively worsening w/ increasing debility with denied change in bowel/bladder patterns with additionally onset RUE paresthesias with L sided headache, facial pain with photophobia and phonophobia with nausea. In the ED work-up included CTA abd/chest without acute findings, admission CBC 13 with L shift-->05/07/17 CBC w/ WBC 13.3 w/ L shift, CMP not marked aside glucose 121. Patient admitted to [place], treatment as noted of acute migraine, Neurology consulted with work-up including MRI Brain ? leptomeningeal enhancement involving posterior fossa and occipital lobes, ? meningitis, cervical MRI unremarkable, MRI lumbar spine unremarkable, LP obtained w/ pending CSF culture, gram stain upon discharge, WBC 0.001, RBC 55, total cell counted 0.001, glucose 62, protein 36. Remained afebrile. Reviewed imaging w/ Neurology, they did not feel that there is any enhancement present, LP unremarkable, no evidence clinically for GBS or meningitis. 05/07/17 per Neurology performed thoracic lumbar spine MRI which was unremarkable. Patient for Acute Persistent Intractable Migraine maintained on IV VPA 1000 mg BID hours, IV Decadron 4mg Q6 hours, IV Toradol 30mg Q6 hours prn, added low dose PO Neurontin 100mg TID with meals, avoided triptans given history of remote DVT. Improved status and given unremarkable MRI imaging spine and brain, per discussion with Neurology, patient discharged to home on Depakote ER 500mg QHS, Neurontin 100mg TID with meals x 1 week, Medrol dose pack with Neurology follow-up in 2 weeks and recommended PCP follow-up 3-5 days. Discharge Activity: Return to Normal Activity May resume sexual activity in: No Restrictions Weight Bearing Status: Weight bearing as tolerated Call your doctor if you observe: Fever of 101 or Higher, Inability to urinate, Inability to have a bowel movement, Shortness of breath, Dizziness, Fainting spells, Chest pain, Uncontrolled pain Home Medications: Medications to take at Discharge Divalproex Sodium [Depakote ER] 500 mg PO QHS #30 tab.er.24h 05/07/17 Famotidine [Pepcid] 20 mg PO BID #60 tab 05/07/17 Gabapentin [Neurontin] 100 mg PO TIDCM #21 cap 05/07/17 Meloxicam [Mobic] 15 mg PO DAILY #7 tab 05/07/17 MethylPREDNISolone DosePak [Medrol DosePak] 4 mg PO UD #1 box 05/07/17 Following Prescrptions Were Given to Patient: Divalproex Sodium [Depakote ER] 500 mg PO QHS #30 tab.er.24h Meloxicam [Mobic] 15 mg PO DAILY #7 tab MethylPREDNISolone DosePak [Medrol DosePak] 4 mg PO UD #1 box Famotidine [Pepcid] 20 mg PO BID #60 tab Gabapentin [Neurontin] 100 mg PO TIDCM #21 cap Primary Care Physician: Joon Han [Family Provider] - Please follow up with your Primary Care Physician in: Follow-up within 3-5 days to review admission. Please Follow Up With: Fermin Mitchell MD When: Follow-up within 2-4 weeks to review admission. Patient Instructions: What Are Migraine and Tension Headaches?, How Your Back Works, Relieving Back Pain, Migraines and Cluster Headaches, Self-Care for Headaches, Self-Care for Low Back Pain, Understanding Headache Pain, Migraine Headache: Stages and Treatment, Preventing Migraine Headaches: Triggers, Preventing Migraine Headaches: Medications and Lifestyle Changes, ED Sciatica Disposition: Home Minutes spent on discharge:: 25 Patient Condition:: Fair Meaningful Use Info Meaningful Use Diagnoses (Choose all that apply): None applicable Code Visit Inpatient E&M: 02465 Disch Hosp
--- NOTE | 2017-05-07 11:41 | DS.PCM_ITS ---
Discharge Date and Diagnosis - Problem List Patient Problems: Active and Suspected Problems (Last Reviewed 02/11/17 @ 15:28 by Parvin Us) Lumbar radicular pain (Acute) Weakness of both legs (Acute) Acute low back pain (Acute) Migraine (Acute) Date of Admission: 05/06/17 Date of Discharge: 05/07/17 - Primary Discharge Diagnosis Active and Suspected Problems (Last Reviewed 02/11/17 @ 15:28 by Parvin Us) Lumbar radicular pain (Acute) Weakness of both legs (Acute) Acute low back pain (Acute) Migraine (Acute) (1) BL LE, RUE Paresthesias, Weakness, Radiculopathy, Suspected Musculoskeletal Etiology in addition to #2, Complex Migraine as noted (2) Acute Persistent Intractable Migraine, Complex (3) History of DVT - Secondary Discharge Diagnosis Chronic Migraines Hx DVT Hospital Course and Treatment Imaging Results: 05/07/17 07:18 Spine Thoracic (Routine) [MRI] Urgent Neurology Dr. Mitchell Operations: None Procedures: None Summary of Care Provided: The patient is a 41 y/o F w/ PMHx: Migraines, Hx DVT who presented to the [facility] ED on 05/06/17 with onset severe low back pain, BL LE weakness, paresthesias and radicular pain noted to have started ~ 05/05/17, progressively worsening w/ increasing debility with denied change in bowel/bladder patterns with additionally onset RUE paresthesias with L sided headache, facial pain with photophobia and phonophobia with nausea. In the ED work-up included CTA abd/ chest without acute findings, admission CBC 13 with L shift-->05/07/17 CBC w/ WBC 13.3 w/ L shift, CMP not marked aside glucose 121. Patient admitted to [place], treatment as noted of acute migraine, Neurology consulted with work-up including MRI Brain ? leptomeningeal enhancement involving posterior fossa and occipital lobes, ? meningitis, cervical MRI unremarkable, MRI lumbar spine unremarkable, LP obtained w/ pending CSF culture, gram stain upon discharge, WBC 0.001, RBC 55, total cell counted 0.001, glucose 62, protein 36. Remained afebrile. Reviewed imaging w/ Neurology, they did not feel that there is any enhancement present, LP unremarkable, no evidence clinically for GBS or meningitis. 05/07/17 per Neurology performed thoracic lumbar spine MRI which was unremarkable. Patient for Acute Persistent Intractable Migraine maintained on IV VPA 1000 mg BID hours, IV Decadron 4mg Q6 hours, IV Toradol 30mg Q6 hours prn , added low dose PO Neurontin 100mg TID with meals, avoided triptans given history of remote DVT. Improved status and given unremarkable MRI imaging spine and brain, per discussion with Neurology, patient discharged to home on Depakote ER 500mg QHS, Neurontin 100mg TID with meals x 1 week, Medrol dose pack with Neurology follow-up in 2 weeks and recommended PCP follow-up 3-5 days. Discharge Activity: Return to Normal Activity May resume sexual activity in: No Restrictions Weight Bearing Status: Weight bearing as tolerated Call your doctor if you observe: Fever of 101 or Higher, Inability to urinate, Inability to have a bowel movement, Shortness of breath, Dizziness, Fainting spells, Chest pain, Uncontrolled pain Home Medications: Medications to take at Discharge Divalproex Sodium [Depakote ER] 500 mg PO QHS #30 tab.er.24h 05/07/17 Famotidine [Pepcid] 20 mg PO BID #60 tab 05/07/17 Gabapentin [Neurontin] 100 mg PO TIDCM #21 cap 05/07/17 Meloxicam [Mobic] 15 mg PO DAILY #7 tab 05/07/17 MethylPREDNISolone DosePak [Medrol DosePak] 4 mg PO UD #1 box 05/07/17 Following Prescrptions Were Given to Patient: Divalproex Sodium [Depakote ER] 500 mg PO QHS #30 tab.er.24h Meloxicam [Mobic] 15 mg PO DAILY #7 tab MethylPREDNISolone DosePak [Medrol DosePak] 4 mg PO UD #1 box Famotidine [Pepcid] 20 mg PO BID #60 tab Gabapentin [Neurontin] 100 mg PO TIDCM #21 cap Primary Care Physician: Joon Han [Family Provider] - Please follow up with your Primary Care Physician in: Follow-up within 3-5 days to review admission. Please Follow Up With: Fermin Mitchell MD When: Follow-up within 2-4 weeks to review admission. Patient Instructions: What Are Migraine and Tension Headaches?, How Your Back Works, Relieving Back Pain, Migraines and Cluster Headaches, Self-Care for Headaches, Self-Care for Low Back Pain, Understanding Headache Pain, Migraine Headache: Stages and Treatment, Preventing Migraine Headaches: Triggers, Preventing Migraine Headaches: Medications and Lifestyle Changes, ED Sciatica Disposition: Home Minutes spent on discharge:: 25 Patient Condition:: Fair Meaningful Use Info Meaningful Use Diagnoses (Choose all that apply): None applicable Code Visit Inpatient E&M: 34443 Disch Hosp
[2017-05-07] MEDS: Gabapentin 100 MG Capsule PO ×2 (11:45→15:31)
--- NOTE | 2017-05-07 12:14 | NURSING ---
pt states PCP is Dr. Mccray- notified to follow up with him in 3-[address] Mitchell in 2-3 weeks[address] Information given for Dr. Mullins's office.
[2017-05-07] MEDS: Acetaminophen/Codeine #3 Tablet 1 TABLET PO (13:10)
[2017-05-07 14:38] VITALS: BP 111/72; PULSE 74; RESP 16; TEMP 36.6; O2SAT 100
[2017-05-07] MEDS: Gabapentin 100 MG Capsule 200 MG PO (17:27)
[2017-05-07 21:16] VITALS: BP 118/81; PULSE 73; RESP 18; TEMP 36.4; O2SAT 100
[2017-05-08 03:00] VITALS: BP 101/65; PULSE 76; RESP 18; TEMP 36.7; O2SAT 100
[2017-05-08] MEDS: Ketorolac 30 MG/ML Syringe IV (05:46)
[2017-05-08 07:07] LABS: Absolute Lymphocyte Count 0.72 X10^3/ul (0.83-4.51); Hemoglobin 11.7 g/dl (12.0-15.0); Lymphocyte # 0.72 X10^3/ul (4.0); Lymphocyte % 4.4 % (19-41); Mean Corp Hgb Conc 32.5 g/gl (32-36); Mean Corpuscular Hgb 28.6 pg (27.0-32.0); Mean Platelet Vol. 11.2 fl (6.2-12.0); Monocyte# 0.48 X10^3/uL; Neutrophil # 14.96 X10^3/uL (2.7-7.7); Neutrophil % 92.5 % (47-70); Platelet Count 223 K/mm3 (150-450); RBC Distribution Width CV 13.1 % (11.6-14.6); RBC Distribution Width SD 41.6 fl (35.1-43.9); Red Blood Count 4.09 M/mm3 (4.2-5.4); White Blood Count 16.2 K/mm3 (4.4-11.0)
--- NOTE | 2017-05-08 07:15 | PCM.PN.HOSP ---
Patient Problems: Active and Suspected Problems (Last Reviewed 02/11/17 @ 15:28 by Parvin Us) Lumbar radicular pain (Acute) Weakness of both legs (Acute) Acute low back pain (Acute) Migraine (Acute) Subjective: Patient overnight with no acute events. Patient had resolution of migraine evening prior and remains migraine free currently. Discussed concept of migraine triggers and avoidance of these which include same sleep and wake cycle, avoidance of excessive caffeine, regular exercise at least 20 minutes aerobic daily, decreasing stressors, no skipping meals, avoidance of tobacco products, avoidance of routine analgesic usage with usage only with migraines. Discussed [id number] migraine medications/adhesions as patient stated including regimen with magnesium, vitamin B2 and butter bur. Patient denies fevers, chills, nausea, emesis, abdominal pain, chest pain or dyspnea. Objective: Physical Examination: General: awake, alert, oriented x 3 and cooperative, seated upright in bed, NAD, notes currently migraine resolved. Skin: normal color, turgor, no icterus, cyanosis. HEENT: AT/NC, EOMI, PERRLA, MMM. Lungs: CTA bilaterally, moderate effort, mild decrease BL bases, no rales, ronchi or wheezing. Heart: Regular rate and rhythm; no gallop, rub audible. Abdomen: soft, NTTP, ND, normal BS. Extremities: no cyanosis, clubbing, or edema. Neurological: patient awake, alert, oriented x 3; cognitive function intact; pupils equally reactive to light and accomodation; cranial nerves II-XII grossly normal, moving all 4 extremities, no focal deficits, strength preserved, resolved prior noted paresthesias U/L extremities. Psychiatric: affect appears normal, no acute evidence of depressive or anxiety feelings. Vitals/I&O's: Vital Signs Temp Pulse Resp BP Pulse Ox 98.1 F 76 18 101/65 100 05/08/17 03:00 05/08/17 03:00 05/08/17 03:00 05/08/17 03:00 05/08/17 03:00 Oxygen Delivery Method Room Air Weight: 163 lb 12.855 oz Body Mass Index (BMI) 26.4 Intake and Output for Last 24 Hours 05/06/17 05/07/17 05/08/17 23:59 23:59 23:59 Intake Total 1462 / 1462 671 / 671 Output Total 800 / 800 Balance 662 / 662 671 / 671 Microbiology Past 72 Hours 05/06/17 18:45 Csf, Spinal Fluid Gram Stain - Final 05/06/17 18:45 Csf, Spinal Fluid CSF Culture - Preliminary No growth in 24 hours. Final to follow. Laboratory Results 05/08/17 05:37: WBC Pending, RBC Pending, Hgb Pending, Hct Pending, MCV Pending, MCH Pending, MCHC Pending, RDW Pending, RDW Differential Pending, Plt Count Pending, Neut % (Auto) Pending, Absolute Neuts (auto) Pending, Total Counted Pending 05/08/17 05:37: Sodium Pending, Potassium Pending, Chloride Pending, Carbon Dioxide Pending, Anion Gap Pending, BUN Pending, Creatinine Pending, Est GFR (MDRD) Af Amer Pending, Est GFR (MDRD) Non-Af Pending, BUN/Creatinine Ratio Pending, Glucose Pending, Calcium Pending, Total Bilirubin Pending, AST Pending, ALT Pending, Alkaline Phosphatase Pending, Total Protein Pending, Albumin Pending Current Medications Al Hydroxide/Mg Hydroxide (Mylanta Ii) 30 ml PO Q6H PRN PRN PRN Reason: Gastric burning Bisacodyl (Dulcolax) 5 mg PO DAILY PRN PRN PRN Reason: Constipation Dexamethasone Sodium Phosphate (Decadron) 4 mg IV Q6 [facility] Stop: 05/09/17 00:01 Last Admin: 05/08/17 05:47 Dose: 4 mg Enoxaparin Sodium (Lovenox) 40 mg SC DAILY@1000 [facility] Last Admin: 05/07/17 10:40 Dose: 40 mg Gabapentin (Neurontin) 200 mg PO TIDCM [facility] Last Admin: 05/07/17 17:27 Dose: 200 mg Valproic Acid 500 mg/ Dextrose 55 mls @ 50 mls/hr IV Q6 [facility] Last Admin: 05/08/17 05:46 Dose: 50 mls/hr Ketorolac Tromethamine (Toradol) 30 mg IV Q6 [facility] Stop: 05/09/17 00:01 Last Admin: 05/08/17 05:46 Dose: 30 mg Loratadine (Claritin) 10 mg PO DAILY [facility] Last Admin: 05/07/17 10:40 Dose: 10 mg Magnesium Hydroxide (Milk Of Magnesia) 30 ml PO DAILY PRN PRN PRN Reason: Constipation Ondansetron HCl (Zofran) 4 mg IV Q8H PRN PRN PRN Reason: NAUSEA Psyllium Hydrophilic Mucilloid (Metamucil) 1 packet PO DAILY PRN PRN PRN Reason: CONSTIPATION Sodium Chloride () 5 - 30 ml IV UD PRN PRN Reason: SALINE FLUSH Last Admin: 05/07/17 18:34 Dose: 20 ml Assessment/Plan Active and Suspected Problems (Last Reviewed 02/11/17 @ 15:28 by Parvin Us) Lumbar radicular pain (Acute) Weakness of both legs (Acute) Acute low back pain (Acute) Migraine (Acute) The patient is a 41 y/o F w/ PMHx: Migraines, Hx DVT who presents to the [facility] ED on 05/06/17 with onset severe low back pain, BL LE weakness, paresthesias and radicular pain noted to have started ~ 05/05/17, progressively worsening w/ increasing debility with denied change in bowel/bladder patterns with additionally onset RUE paresthesias with L sided headache, facial pain with photophobia and phonophobia with nausea. (1) BL LE, RUE Paresthesias, Weakness, Radiculopathy: In the ED work-up included CTA abd/chest without acute findings, admission CBC 13 with L shift-->05/07/17 CBC w/ WBC 13.3 w/ L shift, CMP not marked aside glucose 121. Patient admitted to [place], treatment as noted of acute migraine, Neurology consulted with work-up including ? leptomeningeal enhancement involving posterior fossa and occipital lobes, ? meningitis, cervical MRI unremarkable, MRI thoracic spine unremarkable, MRI lumbar spine unremarkable. Awaiting CSF culture, gram stain, WBC 0.001, RBC 55, total cell counted 0.001, glucose 62, protein 36 unremarkable. Remained afebrile. CBC with elevated WBC but on steroid regimen. Reviewed imaging w/ Neurology, they do not feel that there is any enhancement present, LP unremarkable, no evidence clinically for GBS or meningitis. Planned discharge 05/07/17 but recurrent migraine sxs, resolved with planned discharge 05/08/17. Discussed migraine triggers, health at length. (2) Acute Persistent Intractable Migraine: Neurology consulted, noted #1 work-up, s/p LP, maintained on IV VPA 1000 mg BID hours, IV Decadron 4mg Q6 hours, IV Toradol 30mg Q6 hours prn, add low dose PO Neurontin 100mg TID with meals, avoid triptans given history of remote DVT. Plan discharge to home on regimen including Depakote ER 500mg QHS, Neurontin 100mg TID with meals x 1 week, Medrol dose pack with Neurology follow-up in 2 weeks. Reviewed with Neurology also as planned discharge on VPA 500 mg ER given prior medications failed. (3) History of DVT: As noted avoid triptans, maintain on prophylaxis. (4) DVT prophylaxis: SCDs, lovenox. Code Visit Inpatient E&M: 98977 Disch Hosp - See discharge note, updated.
[2017-05-08 07:29] LABS: POSITIVE COUNT NO; POSITIVE DIFFERENTIAL NO; POSITIVE MORPHOLOGY NO
[2017-05-08 08:09] VITALS: BP 113/71; PULSE 72; RESP 18; TEMP 36.3; O2SAT 100
[2017-05-08] MEDS: Gabapentin 100 MG Capsule 200 MG PO ×3 (08:15→17:53)
[2017-05-08 08:32] LABS: ALB/GLOB Ratio 0.7 RATIO (0.9-2.4); AST(SGOT) 7 U/L (15-37); Alanine Aminotransfer ALT/SGPT 14 U/L (13-56); Albumin, Serum 2.7 g/dL (3.2-5.0); Alkaline Phosphatase 68 U/L (45-117); Anion Gap 11 (5-15); BUN 16 mg/dL (7-18); BUN/Creat Ratio 21.3 RATIO (10-20); Calcium,Total 7.9 mg/dL (8.5-10.1); Chloride 109 mmol/L (98-107); Creatinine, Serum 0.75 mg/dL (0.55-1.02); EST Glomerular Filtration Rate 91 mL/min (>60); Est Glom Filt Rate - Afr Amer 110 mL/min (>60); Estimated Creatinine Clearance 93.34 ml/min; Globulin 4.1 g/dL (2.2-4.2); Glucose 122 mg/dL (74-106); Potassium 4.1 mmol/L (3.5-5.1); Protein, Total 6.8 g/dL (6.4-8.2); Sodium Level 142 mmol/L (136-145)
[2017-05-08 09:05] LABS: Magnesium 2.5 mg/dL (1.6-2.6)
[2017-05-08 10:58] VITALS: BP 131/90; PULSE 60; RESP 16; TEMP 36.8; O2SAT 100
[2017-05-08] MEDS: Loratadine 10 MG Tablet PO (11:20)
[2017-05-08] MEDS: Enoxaparin 40 MG/0.4 ML Syringe SC (11:20)
[2017-05-08 14:00] VITALS: BP 117/79; PULSE 69; RESP 16; TEMP 36.8; O2SAT 99
[2017-05-09 13:14] LABS: Pathologist Review Reviewed
== END 2017-05-08 18:50 | disposition home or self-care (01) ==
LOC: ED 08:55 → MS2 18:55
PROVIDERS: Admitting Provider Internal Medicine; Emergency Provider Emergency Medicine; Family Provider Family Medicine; PCP Family Medicine; Visit Provider Family Medicine
DX: M54.40 Lumbago with sciatica, unspecified side (principal); M54.16 Radiculopathy, lumbar region; Z86.718 Personal history of other venous thrombosis and embolism; G43.119 Migraine with aura, intractable, without status migrainosus; R53.1 Weakness; R20.2 Paresthesia of skin
CPT/HCPCS: 62270; 70553; 71275; 72146; 72156; 72158; 74175; 80048; 80053; 80076; 82945; 83735; 84157; 84484; 85025; 87070; 87205; 89050; 89051; 93005; 96365; 96366; 96372; 96375; 96376; 97162; 97165; 99218; 99285; A9585; J7030; J7040; Q9967; A4216; G0378; J2405; J3490

== ENCOUNTER → 2018-02-13 17:02 | Outpatient (CLI) | payer OTHER, SELFPAY ==
[2018-02-13 14:00] VITALS: BMI 27.9
[2018-02-20 11:47] LABS: HPV APTIMA, High Risk Negative (Negative)
--- OUTSIDE RECORDS SUMMARY | 2018-04-02 02:20 | XMS RPT_ITS ---
:1975 Author Organization OHIP Support Name Relationship Address Phone [facility] Unavailable [address] + [place] [address] NADINE WARD Unavailable [address] + [place] [address] [facility] Unavailable [address] + [place] [address] NADINE WARD Unavailable [address] + [place] [address] [facility] Unavailable [address] + [place] [address] NADINE WARD Unavailable [address] + [place] [address] [facility] Unavailable [address] + [place] [address] NADINE WARD Unavailable [address] + [place] [address] [facility] Unavailable [address] + [place] [address] NADINE WARD Unavailable [address] + [place] [address] [facility] Unavailable [address] + [place] [address] NADINE WARD Unavailable [address] + [place] [address] [facility] Unavailable [address] + [place] [address] NADINE WARD Unavailable [address] + [place] [address] [facility] Unavailable [address] + [place] [address] NADINE WARD Unavailable [address] + [place] [address] [facility] Unavailable [address] + [place] [address] NADINE WARD Unavailable [address] + [place] [address] Care Team Providers Name Role Phone Karyn Cloud Attending Unavailable Karyn Cloud Referring Unavailable Shazia, Russell Attending Unavailable Shazia, Russell Referring Unavailable Shazia, Russell Primary Care Unavailable WaldorfKaryn greenberg Attending Unavailable Pedro Luis, Karyn Referring Unavailable Shazia, Russell Primary Care Unavailable Vaccariello, Joon Primary Care Unavailable Shazia, Russell Referring Unavailable Paintsil, Remington Admitting Unavailable Paula, Fermin S. Consulting Unavailable Whitney Cordero Attending Unavailable Paintsil, Remington Admitting Unavailable Paintsil, Remington Attending Unavailable Shazia, Russell Referring Unavailable Vaccariello, Joon Primary Care Unavailable Paintsil, Remington Consulting Unavailable Paintsil, Remington Admitting Unavailable Whitney Cordero Attending Unavailable Shazia, Russell Referring Unavailable Vaccariello, Joon Primary Care Unavailable Paula, Fermin S. Consulting Unavailable Whitney Cordero Consulting Unavailable Paintsil, Remington Admitting Unavailable Whitney Cordero Attending Unavailable Shazia, Russell Referring Unavailable Vaccariello, Joon Primary Care Unavailable Paula, Fermin S. Consulting Unavailable Whitney Cordero Consulting Unavailable Tess Jaquez Attending Unavailable Shazia, Russell Referring Unavailable Karyn Cloud Attending Unavailable Shazia, Russell Referring Unavailable PROBLEMS PROBLEMS DATE TYPE CONDITION / CODE ATTENDING STATUS SOURCE 02/13/2018 Unknown Z12.4 - Encounter Karyn Cloud Active [place] for screening for Community malignant neoplasm [facility] of cervix / Repository Z12.4(ICD-10) 02/13/2018 Unknown Z01.419 - Encounter Karyn Cloud Active [place] for gynecological [facility] examination [facility] (general) (routine) Repository without abnormal findings / Z01.419(ICD-10) PROCEDURES PROCEDURES No Procedure Records FoundRESULTS RESULTS SCREENING MAMM (CAD), Observed: 02/17/2018 Status: F Source: [place] 2:55 PM [facility] REPOSITORY [facility] Imaging Services [address] [place] [address] SCREENING MAMM (CAD), BILAT MR#: [id number] Acct: [id number] Name: KATIE WARD Rep #: [id number] : 1975 F 42 From: Iain Rose MD PCP: Russell Mccray MD Status: [facility] CL Study: SCREENING MAMM (CAD), BILAT Date of Exam: 02/17/18 Exam# [id number] Ordering Dr: Karyn Cloud NP-Bibi MAMMOGRAPHY - BILATERAL SCREENING REASON FOR EXAM: Female, 42 years old. Routine annual screening examination. PERTINENT HISTORY: Non-contributory. TECHNIQUE: Digital bilateral breast negrita (3D mammographic acquisition) in the CC and MLO projections. 2-D mediolateral oblique (MLO) and craniocaudad (CC) views of both breasts were obtained. CAD: Full Field Digital Mammography with Computer Added Detection was performed. COMPARISON: None. Baseline examination. FINDINGS: Breast Composition: The breasts are heterogeneously dense, which may obscure small masses. There are no dominant masses or suspicious calcifications. No other significant abnormalities are identified. BI/SCREENING MAMM (CAD), BILAT IMPRESSION: Negative screening mammogram. Yearly followup mammogram recommended. (A) ASSESSMENT CATEGORY: BIRADS Category 1: Negative. A letter regarding these results will be sent to the patient by the facility within 30 days. Approximately 10% of breast cancers are not detected by mammography. A normal mammogram should not delay biopsy of a clinically suspicious abnormality. [id number] Electronically Signed: Iain Rose MD at 15:56 EST Tel [phone], Service support , CC: LISA Cloud; Russell Mccray MD Rn Mental Health: Signed LIPID PROFILE Collected: 02/17/2018 Status: F Source: [place] 7:25 AM [facility] REPOSITORY TYPE CODE TESTS RESULT OUT OF RANGE REFERENCE UNITS LAB L501.4900 200 mg/dL Normal CHOL 193 Result Comment: <200 mg/dL Desirable 200-240 mg/dL Borderline >240 mg/dL High Risk LAB L501.5000 mg/dL Normal TRIG 119 Result Comment: The drugs N-Acetylcysteine and Metamizole may falsely depress this assay. Serum Triglycerides Reference Interval Normal <150 mg/dL Borderline high 150 - 199 mg/dL High 200 - 499 mg/dL Very High > or = 500 mg/dL LAB L501.6400 mg/dL Normal HDL 56 Result Comment: The drugs N-Acetylcysteine and Metamizole may falsely depress this assay. Reference Range HDL <40 mg/dL Low HDL Cholesterol HDL >or= 60 mg/dL High HDL Cholesterol LAB L501.6500 0-130 mg/dL Normal LDL 113 LAB L501.6600 5-40 mg/dL Normal VLDL 24 Performed By: #### L500.4100, L501.0100 #### [facility] [address] [place], [place], [address] GLUCOSE Collected: 02/17/2018 Status: F Source: [place] 7:25 AM [facility] REPOSITORY TYPE CODE TESTS RESULT OUT OF RANGE REFERENCE UNITS LAB L501.0100 74-106 mg/dL Normal GLU 92 Result Comment: Please note revised GLUCOSE reference range effective 2017. Performed By: #### L500.4100, L501.0100 #### [facility] [address] 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 of containers..01 ThinPrep Vial TYPE CODE TESTS RESULT OUT OF REFERENCE UNITS RANGE LAB L7400.0800 . High DIAGN Comment Result Comment: EPITHELIAL CELL ABNORMALITY. ATYPICAL SQUAMOUS CELLS OF UNDETERMINED SIGNIFICANCE. LAB L7400.0900 . Normal ADEQ Comment Result Comment: Satisfactory for evaluation. Endocervical and/or squamous metaplastic cells (endocervical component) are present. LAB L7400.1300 . High RECOMM Comment Result Comment: Suggest follow up as clinically appropriate. LAB L7400.1400 . Normal PERFORM Comment Result Comment: Nadine Gonsalves, Ice Grinder (ASCP) LAB L7400.1700 . Normal SIGN Comment Result Comment: Lilli Lr MD, Pathologist LAB L7400.1720 . Normal Path prov. Comment ICD9 Result Comment: R87.610 LAB L7400.2575 . Normal TEST METHOD Comment Result Comment: This liquid based ThinPrep(R) pap test was screened with the use of an image guided system. LAB L7400.2600 . Normal . COMM LAB L7400.2700 . Normal PAPSMR Comment Result Comment: The Pap smear is a screening test designed to aid in the detection of premalignant and malignant conditions of the uterine cervix. It is not a diagnostic procedure and should not be used as the sole means of detecting cervical cancer. Both false-positive and false-negative reports do occur. LAB L7400.2760 Negative Normal HPV APTIMA, Negative HR Result Comment: This test detects fourteen high-risk HPV types (16/18/31/33/35/39/45/ 51/52/56/58/59/66/68) without differentiation. 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 Architecture Analyst Required: No Is patient in pain?: No Allergies No Known Allergies Allergy (Verified 02/13/18 14:01) Medications sumatriptan 50 mg tablet 50 mg PO ONCE 02/13/18 [History Confirmed 02/13/18] Is last menstrual period known: Yes Last Menstral Period: 01/21/18 Post menopausal: No Patient : No : No PFSH Medical History DVT (deep venous thrombosis) (Acute) Migraine (Acute) Surgical History H/O sinus surgery (Acute) Family History Father Hypertension Diabetes H/O aortic valve replacement Social History Smoking Status: Never smoker alcohol intake: current details: social substance use type: does not use caffeine: Yes what type of physical activity do you participate in: walking seatbelt use: always do you feel safe at home: Yes additional social history: [employer] 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 DateName GA/Weeks Outcome Route Bth WeighInfant GeLabor LgtAnesthesiDel LocatProvider FOB t n h a n HPI ANNUAL: Details: KATIE WARD is a 42 year old who presents for new patient annual exam. Denies concerns. , denies STD concerns. Using condoms for contraception. Last PAP: 4-5 yr ago/Hugh Bean History of abnormal PAP: Neg colp after abnormal and all paps neg since Last mammogram: scheduled History of abnormal mammogram: no Female Reproductive History Last Menstral Period: 01/21/18 Cycle Length: 21-35 Control Method: condoms Questions: Metorrhagia: No, Sexually active: Yes, Dyspareunia: No, PCB: No ROS Const Constitutional: Denies fatigue, weight gain or weight loss Cardio Card: Denies chest pain Resp Resp: Denies cough or shortness of breath with activity GI GI: Denies abdominal pain, constipation, change in stools, vomiting or bloating : Reports as per HPI; denies urinary frequency, pelvic pain, urinary urgency, vaginal discharge, vaginal itching, urinary incontinence or difficulty urinating Exam Const General: cooperative, healthy appearing, no acute distress, well developed Orientation: alert, oriented to person, oriented to place HENVA Head: normal to inspection Neck Neck: normal visual inspection Thyroid: thyroid normal Lymphatic: no lymphadenopathy noted Chest Breast inspection: normal inspection of the breasts, normal inspection of the axillae Breast palpation: normal palpation of the breasts, normal palpation of the axillae, no axillary lymphadenopathy Resp Effort AND Inspection: normal respiratory effort GI Palpation: soft, nontender, no masses Rectal Exam: deferred External Female Exam: normal external appearance, normal appearance of the urethra Urethra: normal appearance of the urethra, normal palpation Speculum Exam - Vagina: normal appearance of the vagina, normal vaginal discharge Speculum Exam - Cervix: normal appearance of the cervix (pap collected) Bimanual Exam- Vagina AND Uterus: normal bimanual exam, uterine size normal, uterine shape normal, uterus non-tender Bimanual Exam- Adnexa, other: normal adnexae, no adnexal masses, adnexae non-tender, pelvic support normal Pelvic Support: normal Neuro General: alert, oriented x3 Psych Affect: normal affect Assessment AND Plan Problems 1. Encounter for gynecological examination without abnormal finding Z01.419 2. Papanicolaou smear for cervical cancer screening Z12.4 Plan Completed breast and pelvic exam Reviewed diet and exercise Pap thin prep pap with HPV Mammogram ordered Contraception condoms RTO 1 year, prn with problems Karyn Cloud CNP Coding Level of Care Code Off vis,new,prev 40-64yrs Diagnoses Encounter for gynecological examination without abnormal finding Z01.419 Gynecological examination findings: abnormal findings ABSENT Papanicolaou smear for cervical cancer screening Z12.4 02/13/18 1426 <Electronically signed by Karyn Cloud WEB SPECIALIST-C> Date Karyn Cloud WEB SPECIALIST-C Cosigner Signature: Date (if applicable) CC: URGENT CARE VISIT Observed: 11/05/2017 Status: F Source: [place] REPORT 1:36 PM [facility] REPOSITORY [facility] [address] [place] [address] [address] [place] [address] OFFICE VISIT Date of Service: 11/05/17 MR#: [id number] Acct: [id number] Name: KATIE WARD Rep #: [id number] : 1975 Provider: CHRISTINE Jaquez Age/Sex: 42/F Location: [facility] [place] Status: Signed Intake Vital Signs11/05/17 Height 5 ft 6 in Intake Visit Reasons: HIVES Chief Complaint: rash around face and neck Allergies No Known Allergies Allergy (Verified 11/05/17 11:10) Medications Divalproex Sodium [Depakote ER] 500 mg PO QHS #30 tab.er.24h 05/07/17 [Rx Confirmed 11/05/17] Famotidine [Pepcid] 20 mg PO BID #60 tab 05/07/17 [Rx Confirmed 11/05/17] Gabapentin [Neurontin] 100 mg PO TIDCM #21 cap 05/07/17 [Rx Confirmed 11/05/17] PFSH Surgical History H/O sinus surgery (Acute) Family History Other Diabetes Hypertension Social History Smoking Status: Never smoker alcohol intake: never HPI HPI Chief Complaint: rash around face and neck Details: KATIE WARD, is a 42 F who presents to the office today for the above chief complaint. She does not know why the rash occurred but did get a hair permanent 4 days ago and the rash appears to be around the periphery of her face and scalp where the cotton was wrapped around it.. + itching, mild to moderate now. The rash appears to be spreading up to near her left eye and down her neck bilaterally. No drainage, but itching. She has never had prednisone before. She has been taking Benadryl and using Caladryl lotion. ROS Const Constitutional: No body ache, chills, fatigue, fever(s), night sweats, change in appetite, weakness, frequent falls, headache(s) or excessive sweating Eyes Eyes: No visual disturbances, light sensitivity, eye pain or change in vision ENT ENT: No ear pain, ear discharge, hearing loss, dizziness/vertigo, nasal discharge, difficulty swallowing, sore throat, neck pain or headache(s) Resp Respiratory: No cough, chest congestion, hemoptysis, shortness of breath or wheezing Cardio Cardiology: No shortness of breath, irregular heart rhythm, lightheadedness, chest pain at rest, chest pain with exertion, generalized swelling, orthopnea, palpitations or excessive sweating Gastro GI: No difficulty swallowing, abdominal pain, bloating, change in bowel habits, diarrhea, blood in stool, Black,tarry stools, nausea/dyspepsia or vomiting Genitourinary-Female: No burning urination, urinary frequency, urinary urgency, blood in urine or Vaginal Itching Musc Musculoskeletal: No joint pain, back pain, numbness, tingling or neck pain Skin Skin: Positive for rash (see HPI); no lesions or itching Neuro Neurology: No visual disturbances, numbness, tingling, abnormal speech, confusion, unsteady gait/balance, dizziness, weakness, frequent falls, loss of vision or headache(s) Psych Psychiatric: No change in appetite, No confusion, No anxiety Endo Endocrine: No fatigue, cold intolerance, excessive sweating, flushing, heat intolerance or increased thirst/drinking Aller/Imm Allergy/Immunologic: No wheezing, itchy eyes, food intolerance, seasonal allergy symptoms or hives Wallace/Lymp Hematologic/Lymphatic: No easy bruising Exam Const General: cooperative, no acute distress Nutritional Appearance: average body habitus Orientation: alert, oriented x3 HENMT Head: normal to inspection (other than rash noted), normocephalic Ears: hearing grossly normal bilaterally, external ears normal, TM normal on the right, TM normal on the left, no periauricular adenopathy, EAC's normal Nose: nasal mucous membranes and turbinates normal, no nasal discharge Face and sinus: normal facial exam, sinuses nontender Mouth: oral mucosae normal, oropharynx normal, tongue normal Throat: posterior oropharynx normal Eyes General: appearance normal, both eyes and all related structures Periorbital: periorbital findings normal Eyelids: eyelids normal Conjunctivae: conjunctivae normal Sclera: sclerae normal Pupils: PERRL, accommodation normal EOM: EOM intact bilaterally Direct ophthalmoscopy: normal light reflex, no photophobia Neck Neck: normal visual inspection, full ROM, no meningeal signs, trachea midline, supple, no lymphadenopathy Neck mass: No Lymphatic: no lymphadenopathy noted Chest Chest palpation AND inspection: normal inspection of the chest Resp Effort AND Inspection: normal respiratory effort, able to speak in complete sentences, symmetric chest movement, no audible wheezes, no cough, not labored, no respiratory distress Auscultation: Bilateral: Clear to Auscultation Cardio Rate: regular rate Rhythm: regular rhythm Heart Sounds: S1 normal, S2 normal Musc Musculoskeletal: No joint tenderness Thoracic/Lumbar Spine: thoracic and lumbar spine normal to inspection Skin Rashes: rashes noted (papulovesicular rash, erythematous, peripheral face and scalp, neck bilater), other Neuro General: alert, oriented x3, moves all extremities Speech: speech normal Gait: normal gait Sensory Exam: no sensory deficits noted Extrem General: normal to inspection Psych Appearance: grossly normal, well kempt Mental Status: mental status grossly normal Affect: normal affect Speech and Movement: speech and movement normal Attitude: cooperative Thought Process: normal Thought Content: normal Judgment: judgment good Assessment AND Plan Problems 1. Contact dermatitis due to other chemical product, unspecified contact dermatitis type L25.3 Plan Medrol Dose pack called to [facility]. Rec: OTC cortisone cream for rash other than around left eye.... Continue Benadryl To ER if the actual eye becomes involved. F/u with PCP for possible allergy testing. Coding Level of Care Code Off vis,est,level 3 Diagnoses Contact dermatitis due to other chemical product, unspecified contact dermatitis type L25.3 Contact dermatitis type: unspecified Contact dermatitis trigger: other chemical product 11/05/17 1336 <Electronically signed by Tess KING> Date Tess Dowell Signature: Date (if applicable) CC: 12 LEAD ELECTROCARDIOGRAM Observed: 05/10/2017 Status: F Source: [place] 4:22 PM [facility] Cardiovascular Services [address] [place] [address] 12 Lead EKG 05/06/17 0852 MR#: [id number] Acct: [id number] Name: KATIE WARD Rep #: [id number] : 1975 41 From: Sebastian Barron MD Attending Dr: Whitney Cordero Status: DIS [place] Ordering Dr: Astrid Francisco MD Date: 05/06/17 Location: [facility] [place] Sex: F C Admitted: 05/06/17 Test Reason : NECKPAIN Blood Pressure : / mmHG Vent. Rate : 083 BPM Atrial Rate : 083 BPM P-R Int : 152 ms QRS Dur : 072 ms QT Int : 364 ms P-R-T Axes : 066 065 074 degrees QTc Int : 427 ms Normal sinus rhythm Nonspecific T wave abnormality Abnormal ECG Confirmed by JOSE HUGGINS, SEBASTIAN ([id number]), purchase request editor ARIELLE DIANE ([id number]) on 05/10/2017 4:22:11 PM Referred By: Russell Mccray Confirmed By:SEBASTIAN BARRON MD 05/10/17 1622 Date Sebastian Barron MD CC: ASTRID FRANCISCO MD; Joon Han; Russell Mccray Signed DISCHARGE SUMMARY Observed: 05/08/2017 Status: F Source: [place] 8:30 AM [facility] Medical Records Department [address] [place] [address] Discharge Summary 05/07/17 1137 MR#: [id number] Acct: [id number] Name: KATIE WARD Rep #: [id number] : 1975 41 From: Whitney Cordero PCP: Russell Mccray Status: ADM [place] Y Location: [place] [id number] ADDENDUM by Whitney Cordero on 05/08/17 at 0830 Code Visit Patient discharge delayed 05/07/17 secondary to recurrent migraine sxs onset, resolved following continued treatment. Avoided narcotic therapy still. Migraine resolved 05/08/17 AM. Reviewed migraine triggers and educations. Discussed w/ Neurology and still plan discharge on depakote 500 mg ER given improved with this regimen and has tried several agents prior, given migraine history since 17 years old that were not successful. Discharge date correction: 05/08/17 Inpatient E AND M: [id number] Disch Hosp 05/08/17 0830 <Electronically signed by Whitney Cordero > Date Whitney Cordero cc: Whitney Cordero; Joon Han; Russell Mccray * Signed Discharge Date and Diagnosis - Problem List Patient Problems: Active and Suspected Problems (Last Reviewed 02/11/17 @ 15:28 by Parvin Us) Lumbar radicular pain (Acute) Weakness of both legs (Acute) Acute low back pain (Acute) Migraine (Acute) Date of Admission: 05/06/17 Date of Discharge: 05/07/17 - Primary Discharge Diagnosis Active and Suspected Problems (Last Reviewed 02/11/17 @ 15:28 by Parvin Us) Lumbar radicular pain (Acute) Weakness of both legs (Acute) Acute low back pain (Acute) Migraine (Acute) (1) BL LE, RUE Paresthesias, Weakness, Radiculopathy, Suspected Musculoskeletal Etiology in addition to #2, Complex Migraine as noted (2) Acute Persistent Intractable Migraine, Complex (3) History of DVT - Secondary Discharge Diagnosis Chronic Migraines Hx DVT Hospital Course and Treatment Imaging Results: 05/07/17 07:18 Spine Thoracic (Routine) [MRI] Urgent Neurology Dr. Mitchell Operations: None Procedures: None Summary of Care Provided: The patient is a 41 y/o F w/ PMHx: Migraines, Hx DVT who presented to the [facility] ED on 05/06/17 with onset severe low back pain, BL LE weakness, paresthesias and radicular pain noted to have started 05/05/17, progressively worsening w/ increasing debility with denied change in bowel/bladder patterns with additionally onset RUE paresthesias with L sided headache, facial pain with photophobia and phonophobia with nausea. In the ED work-up included CTA abd/chest without acute findings, admission CBC 13 with L shift-->05/07/17 CBC w/ WBC 13.3 w/ L shift, CMP not marked aside glucose 121. Patient admitted to ID, treatment as noted of acute migraine, Neurology consulted with work-up including MRI Brain ? leptomeningeal enhancement involving posterior fossa and occipital lobes, ? meningitis, cervical MRI unremarkable, MRI lumbar spine unremarkable, LP obtained w/ pending CSF culture, gram stain upon discharge, WBC 0.001, RBC 55, total cell counted 0.001, glucose 62, protein 36. Remained afebrile. Reviewed imaging w/ Neurology, they did not feel that there is any enhancement present, LP unremarkable, no evidence clinically for GBS or meningitis. 05/07/17 per Neurology performed thoracic lumbar spine MRI which was unremarkable. Patient for Acute Persistent Intractable Migraine maintained on IV VPA 1000 mg BID hours, IV Decadron 4mg Q6 hours, IV Toradol 30mg Q6 hours prn, added low dose PO Neurontin 100mg TID with meals, avoided triptans given history of remote DVT. Improved status and given unremarkable MRI imaging spine and brain, per discussion with Neurology, patient discharged to home on Depakote ER 500mg QHS, Neurontin 100mg TID with meals x 1 week, Medrol dose pack with Neurology follow-up in 2 weeks and recommended PCP follow-up 3-5 days. Discharge Activity: Return to Normal Activity May resume sexual activity in: No Restrictions Weight Bearing Status: Weight bearing as tolerated Call your doctor if you observe: Fever of 101 or Higher, Inability to urinate, Inability to have a bowel movement, Shortness of breath, Dizziness, Fainting spells, Chest pain, Uncontrolled pain Home Medications: Medications to take at Discharge Divalproex Sodium [Depakote ER] 500 mg PO QHS #30 tab.er.24h 05/07/17 Famotidine [Pepcid] 20 mg PO BID #60 tab 05/07/17 Gabapentin [Neurontin] 100 mg PO TIDCM #21 cap 05/07/17 Meloxicam [Mobic] 15 mg PO DAILY #7 tab 05/07/17 MethylPREDNISolone DosePak [Medrol DosePak] 4 mg PO UD #1 box 05/07/17 Following Prescrptions Were Given to Patient: Divalproex Sodium [Depakote ER] 500 mg PO QHS #30 tab.er.24h Meloxicam [Mobic] 15 mg PO DAILY #7 tab MethylPREDNISolone DosePak [Medrol DosePak] 4 mg PO UD #1 box Famotidine [Pepcid] 20 mg PO BID #60 tab Gabapentin [Neurontin] 100 mg PO TIDCM #21 cap Primary Care Physician: Joon Han [Family Provider] - Please follow up with your Primary Care Physician in: Follow- up within 3-5 days to review admission. Please Follow Up With: Fermin Mitchell MD When: Follow-up within 2-4 weeks to review admission. Patient Instructions: What Are Migraine and Tension Headaches?, How Your Back Works, Relieving Back Pain, Migraines and Cluster Headaches, Self-Care for Headaches, Self-Care for Low Back Pain, Understanding Headache Pain, Migraine Headache: Stages and Treatment, Preventing Migraine Headaches: Triggers, Preventing Migraine Headaches: Medications and Lifestyle Changes, ED Sciatica Disposition: Home Minutes spent on discharge:: 25 Patient Condition:: Fair Meaningful Use Info Meaningful Use Diagnoses (Choose all that apply): None applicable Code Visit Inpatient E AND M: 99435 Disch Hosp 05/07/17 1141 <Electronically signed by Whitney Cordero > Date Whitney Cordero Cosigner Signature (if applicable): Date CC: Whitney Cordero; Joon Han; Russell Mccray Signed CBC W/DIFF, AUTOMATED Collected: 05/08/2017 Status: F Source: [place] 5:37 AM [facility] REPOSITORY TYPE CODE TESTS RESULT OUT OF RANGE REFERENCE UNITS LAB L100.1000 4.4-11.0 K/mm3 High WBC 16.2 LAB L100.1200 4.2-5.4 M/mm3 Low RBC 4.09 LAB L100.1300 12.0-15.0 g/dl Low HGB 11.7 LAB L100.1400 37-47 % Low HCT 36.0 LAB L100.1500 81-99 fL Normal MCV 88.0 LAB L100.1600 27.0-32.0 pg Normal MCH 28.6 LAB L100.1700 32-36 g/gl Normal MCHC 32.5 LAB L100.1810 11.6-14.6 % Normal RDW CV 13.1 LAB L100.1820 35.1-43.9 fl Normal RDW SD 41.6 LAB L100.1900 150-450 K/mm3 Normal PLT 223 LAB L100.2000 6.2-12.0 fl Normal MPV 11.2 LAB L100.2100 47-70 % High NEUT% 92.5 LAB L100.2200 19-41 % Low LY% 4.4 LAB L100.2300 0-10 % Normal MONO% 3.0 LAB L100.2400 0-5 % Normal EO% 0.0 LAB L100.2500 0-1 % Normal BASO% 0.0 LAB L100.2550 0.0-0.9 % Normal IM GRAN % 0.100 Result Comment: IG% - Immature Granulocytes (promyelocytes, myelocytes and metamyelocytes) > 1% indicates that a LEFT SHIFT is Present. LAB L100.2620 2.0-7.7 X10 3/uL High Absolute Neut 15.0 LAB L100.2720 0.83-4.51 X10 3/ul Low Absolute Lymph 0.72 Performed By: #### L100.0100 #### [facility] [address] [place], [address] COMPREHENSIVE METABOLIC Collected: 05/08/2017 Status: F Source: [place] [facility] 5:37 AM [facility] REPOSITORY TYPE CODE TESTS RESULT OUT OF RANGE REFERENCE UNITS LAB L501.0100 74-106 mg/dL High GLU 122 Result Comment: Fasting Glucose result from 100 to 125 mg/dL suggests IMPAIRED HOMEOSTASIS per A.D.A. criteria. Please note revised GLUCOSE reference range effective 2017. LAB L501.1000 7-18 mg/dL Normal BUN 16 LAB L501.1100 0.55-1.02 mg/dL Normal CREAT,SERUM 0.75 Result Comment: The validity of the calculated GFR AND GFRAA in patients over 70 years has not been determined. Clinical correlation is essential. LAB L501.1110 >60 mL/min Normal EST GFR 91 Result Comment: Non- GFR Calc LAB L501.1115 >60 mL/min Normal EST GFR - AA 110 Result Comment: GFR Calc LAB L501.1255 ml/min Normal Estimated CRCL 93.34 LAB L501.1300 10-20 RATIO High BUN/CRE 21.3 LAB L501.1500 6.4-8. g/dL Normal 2 T PROT 6.8 LAB L501.1800 3.2-5. g/dL Low 0 ALB 2.7 LAB L501.1950 2.2-4. g/dL Normal 2 GLOB 4.1 LAB L501.2000 0.9-2. RATIO Low 4 A/G 0.7 LAB L501.2200 8.5-10 mg/dL Low .1 CA 7.9 LAB L501.4100 15-37 U/L Low AST 7 LAB L501.4305 45-117 U/L Normal ALK P 68 LAB L501.4405 13-56 U/L Normal ALT 14 Result Comment: Please note revised ALT reference range effective 2017. LAB L501.4600 0.20-1.00 mg/dL Normal T BILI 0.40 LAB L501.5300 136-145 mmol/L Normal NA 142 LAB L501.5600 3.5-5.1 mmol/L Normal K 4.1 LAB L501.5900 98-107 mmol/L High CL 109 LAB L501.6100 21.0-32.0 mmol/L Normal CO2 22.0 LAB L501.6200 5-15 Normal GAP 11 Performed By: #### L500.4050 #### [facility] [address] [place], [address] MAGNESIUM Collected: 05/08/2017 Status: F Source: [place] 5:37 AM [facility] REPOSITORY TYPE CODE TESTS RESULT OUT OF RANGE REFERENCE UNITS LAB L501.5200 1.6-2.6 mg/dL Normal MG 2.5 Result Comment: Please note revised Magnesium reference range effective 2017. Performed By: #### L501.5200 #### [facility] [address] [place], [address] DISCHARGE INSTRUCTION Observed: 05/07/2017 Status: F Source: [place] 11:37 AM [facility] REPOSITORY [facility] Medical Records Department [address] [place] [address] Instructions for Home/Discharge Instructions 05/07/17 1055 MR#: [id number] Acct: [id number] Name: KATIE WARD Rep #: [id number] : 1975 41 From: Whitnye Crodero PCP: Russell Mccray Status: ADM IN - Discharge Diagnoses Current Active Problems: Current Active and Chronic Problems (Last Reviewed 02/11/17 @ 15:28 by Parvin Us) Lumbar radicular pain (Acute) Weakness of both legs (Acute) Acute low back pain (Acute) Migraine (Acute) (1) BL LE, RUE Paresthesias, Weakness, Radiculopathy, Suspected Musculoskeletal Etiology in addition to #2, Complex Migraine as noted (2) Acute Persistent Intractable Migraine, Complex (3) History of DVT You will use the following diet at home:: No restrictions Your food should be the consistency of: Regular Your liquids should be the consistency of: Regular/Thin Discharge Activity: Return to Normal Activity May resume sexual activity in: No Restrictions Weight Bearing Status: Weight bearing as tolerated Call your doctor if you observe: Fever of 101 or Higher, Inability to urinate, Inability to have a bowel movement, Shortness of breath, Dizziness, Fainting spells, Chest pain, Uncontrolled pain Instructions: What Are Migraine and Tension Headaches?, How Your Back Works, Relieving Back Pain, Migraines and Cluster Headaches, Self-Care for Headaches, Self-Care for Low Back Pain, Understanding Headache Pain, Migraine Headache: Stages and Treatment, Preventing Migraine Headaches: Triggers, Preventing Migraine Headaches: Medications and Lifestyle Changes, ED Sciatica Allergies/Adverse Reactions: Allergies No Known Allergies Allergy (Verified 03/02/18 08:27) Medications to take at Discharge Divalproex Sodium [Depakote ER] 500 mg PO QHS #30 tab.er.24h 05/07/17 Famotidine [Pepcid] 20 mg PO BID #60 tab 05/07/17 Gabapentin [Neurontin] 100 mg PO TIDCM #21 cap 05/07/17 Meloxicam [Mobic] 15 mg PO DAILY #7 tab 05/07/17 MethylPREDNISolone DosePak [Medrol DosePak] 4 mg PO UD #1 box 05/07/17 The following prescriptions were given: Divalproex Sodium [Depakote ER] 500 mg PO QHS #30 tab.er.24h Meloxicam [Mobic] 15 mg PO DAILY #7 tab MethylPREDNISolone DosePak [Medrol DosePak] 4 mg PO UD #1 box Famotidine [Pepcid] 20 mg PO BID #60 tab Gabapentin [Neurontin] 100 mg PO TIDCM #21 cap Primary Care Physician: Joon Han [Family Provider] - Please follow up with your Primary Care Physician in: Follow- up within 3-5 days to review admission. Please Follow Up With: Fermin Mitchell MD When: Follow-up within 2-4 weeks to review admission. Proposed Discharge Date: 05/07/17 05/07/17 1137 <Electronically signed by Whitney Cordero > Date Whitney Cordero CC: Edyta Mitchell MD; Joon Han; Russell Mccray CBC W/DIFF, AUTOMATED Collected: 05/07/2017 Status: F Source: [place] 5:24 AM [facility] REPOSITORY TYPE CODE TESTS RESULT OUT OF RANGE REFERENCE UNITS LAB L100.1000 4.4-11.0 K/mm3 High WBC 13.3 LAB L100.1200 4.2-5.4 M/mm3 Normal RBC 4.33 LAB L100.1300 12.0-15.0 g/dl Normal HGB 12.3 LAB L100.1400 37-47 % Normal HCT 37.7 LAB L100.1500 81-99 fL Normal MCV 87.1 LAB L100.1600 27.0-32.0 pg Normal MCH 28.4 LAB L100.1700 32-36 g/gl Normal MCHC 32.6 LAB L100.1810 11.6-14.6 % Normal RDW CV 13.4 LAB L100.1820 35.1-43.9 fl Normal RDW SD 41.9 LAB L100.1900 150-450 K/mm3 Normal PLT 186 LAB L100.2000 6.2-12.0 fl Normal MPV 10.6 LAB L100.2100 47-70 % High NEUT% 93.1 LAB L100.2200 19-41 % Low LY% 4.1 LAB L100.2300 0-10 % Normal MONO% 2.5 LAB L100.2400 0-5 % Normal EO% 0.0 LAB L100.2500 0-1 % Normal BASO% 0.1 LAB L100.2550 0.0-0.9 % Normal IM GRAN % 0.200 Result Comment: IG% - Immature Granulocytes (promyelocytes, myelocytes and metamyelocytes) > 1% indicates that a LEFT SHIFT is Present. LAB L100.2620 2.0-7.7 X10 3/uL High Absolute Neut 12.4 LAB L100.2720 0.83-4.51 X10 3/ul Low Absolute Lymph 0.54 Performed By: #### L100.0100 #### [facility] [address] [place], [address] BASIC METABOLIC Collected: 05/07/2017 Status: F Source: [place] PROFILE ([facility]) 5:24 AM [facility] REPOSITORY TYPE CODE TESTS RESULT OUT OF RANGE REFERENCE UNITS LAB L501.0100 74-106 mg/dL High GLU 136 Result Comment: Fasting Glucose result greater than or equal to 126 mg/dL suggests DIABETES MELLITUS per A.D.A. criteria. Please note revised GLUCOSE reference range effective 2017. LAB L501.1000 7-18 mg/dL Normal BUN 9 LAB L501.1100 0.55-1.02 mg/dL Normal CREAT,SERUM 0.79 Result Comment: The validity of the calculated GFR AND GFRAA in patients over 70 years has not been determined. Clinical correlation is essential. LAB L501.1110 >60 mL/min Normal EST GFR 85 Result Comment: Non- GFR Calc LAB L501.1115 >60 mL/min Normal EST GFR - AA 103 Result Comment: GFR Calc LAB L501.1255 ml/min Normal Estimated CRCL 88.62 LAB L501.1300 10-20 RATIO Normal BUN/CRE 11.4 LAB L501.2200 8.5-10 mg/dL Low .1 CA 8.2 LAB L501.5300 136-14 mmol/L Normal 5 NA 137 LAB L501.5600 3.5-5. mmol/L Normal 1 K 4.0 LAB L501.5900 98-107 mmol/L Normal CL 105 LAB L501.6100 21.0-3 mmol/L Normal 2.0 CO2 26.0 LAB L501.6200 5-15 Normal GAP 6 Performed By: #### L500.2500 #### [facility] [address] [facility] [place], [address] SPINE THORACIC Observed: 05/06/2017 Status: F Source: [place] (ROUTINE) 11:14 PM [facility] REPOSITORY [facility] Imaging Services [address] [place] [address] Spine Thoracic (Routine) MR#: [id number] Acct: [id number] Name: KATIE WARD Rep #: [id number] : 1975 F 41 From: Marissa Diane MD PCP: Russell Mccray Status: ADM IN Study: Spine Thoracic (Routine) Date of Exam: 05/07/17 Exam# [id number] Ordering Dr: Fermin Mitchell MD STUDY: MRI THORACIC SPINE WITHOUT CONTRAST REASON FOR EXAM: Female, 41 years old. Neck pain. Patient has left upper extremity weakness. TECHNIQUE: Standardized fat and water weighted pulse sequences were obtained in the sagittal and axial planes. Several images are limited by patient motion. COMPARISON: CT of the chest dated May 06, 2017. FINDINGS: Normal kyphosis of the thoracic spine. There is no substantial scoliosis. T1-2, T2-3, T3-4, T4-5, T5-6, T6-7, T7-8, T8-9, T9-10, T10- 11, T11-12: Normal endplates. Normal disc signal, heights and morphology of the corresponding intervertebral discs. Normal central canal and intervertebral neural foramina at the corresponding levels. Normal visualized thoracic cord. Normal conus medullaris that terminates at the L1 level.. The soft tissue structures are unremarkable. There is bilateral basilar dependent atelectasis. MRI/Spine Thoracic (Routine) IMPRESSION: No MR evidence for nerve impingement or significant canal stenosis. Electronically Signed: Marissa Diane MD at 11:34 EST , Service support , CC: Edyta Mitchell MD; Russell Mccray Rn Mental Health: Signed CONSULTATION Observed: 05/06/2017 Status: F Source: [place] 11:12 PM [facility] REPOSITORY [facility] Medical Records Department [address] [place] [id number] Consultation 05/06/17 1421 MR#: [id number] Acct: [id number] Name: KATIE WARD Rep #: [id number] : 1975 41 From: Fermin Mitchell MD PCP: Russell Mccray Status: ADM IN Location: [place] [address]-1 Problem List (1) Lumbar radicular pain Status: Acute (2) Weakness of both legs Status: Acute Reason for Consult Date of Consultation: 05/06/17 Reason for Consultation: severe lower back pain, with radicular symptoms and weakness of the legs History of Present Illness: The patient is a 41 year old CF with PMH Migraines, H/O DVT admitted with severe low back pain with radicular symptoms and weakness of the legs. Per patient she went for the nap yesterday (05/05/17) and woke up at around 4 pm and started having severe lower back pain, was getting worse through the night, and this morning she was unable to walk and had to hold on to stuff to walk, felt it was due to weakness and severe pain in the back radiating to the legs, denies any urinary incontinence or bowel incontinence. She also complaints of tingling numbness in both LE, left worse than right, also feels there is tingling and numbness in the right UE but denies any arm weakness or severe neck pain at present. Has severe KILGORE at present, left sided, with photophobia and phonophobia, has had nausea with the KILGORE, has migraines about 2 times a month, is not on any preventative, per patient may take imitrex as needed. 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 [] Past Medical History Allergies No Known Allergies Allergy (Verified 05/06/17 08:27) Home Medications: Ambulatory Orders Medication Instructions Recorded Acetaminophen/Codeine #3 1 tablet PO Q6H PRN PRN 05/06/17 [Tylenol#3] Lives: With Family Smoking Status: Never smoker Alcohol: None Drugs: None - *Family History Maternal History Items: No pertinent history Review of Systems Constitutional: Reports: - - complete ROS negative except as documented in HPI Patient Problems: Active and Suspected Problems (Last Reviewed 02/11/17 @ 15:28 by Parvin Us) Lumbar radicular pain (Acute) Weakness of both legs (Acute) Acute low back pain (Acute) Migraine (Acute) - Physical Exam General: Alert, Oriented x3, Cooperative HEENT: Atraumatic, PERRLA, EOMI, Normocephalic Neck: Supple, No JVD, Negative Carotid Bruits Lungs: Clear to auscultation, Normal air movement Cardiovascular: Regular rate, No murmurs Abdomen: Bowel Sounds Present, Soft, Non Tender Extremities: No edema, Capillary Refill Less than 3 Seconds Skin: No rashes, No breakdown Musculoskeletal: No Tenderness to Palpation of Joints or Extremities Neurological: - - consious, alert, CN 2-12 grossly intact, power 5/5 both UE, 3/5 both LE limited by pain and weakness, decreased sensation to light touch in the left LE below the knee, no sensory level at the torso, no abnormal joint position virbation on examination, has severe pain and SLRT could not be done, Reflexes +2 B/L B/S/T anad +3 B/L K/A, no clonus, plantars B/L Flexor, no cerebellar signs, gait deferred, fundus not visualized. Psych/Mental Status: Normal Affect, Appropriate Vital Signs Temp Pulse Resp BP Pulse Ox 98.8 F 84 16 125/76 H 97 05/06/17 08:23 05/06/17 13:43 05/06/17 13:43 05/06/17 13:43 05/06/17 13:43 Oxygen Delivery Method Room Air Weight: 75.4 kg Body Mass Index (BMI) 26.8 Laboratory Tests Past 24 Hrs WBC 13.0 H RBC 4.57 Hgb 13.1 Hct 38.6 MCV 84.5 MCH 28.7 MCHC 33.9 RDW 13.0 RDW Differential 39.9 Assessment/Plan Active and Suspected Problems (Last Reviewed 02/11/17 @ 15:28 by Parvin Us) Lumbar radicular pain (Acute) Weakness of both legs (Acute) Acute low back pain (Acute) Migraine (Acute) The patient is a 41 year old CF with PMH Migraines, H/O DVT admitted with severe low back pain with radicular symptoms and weakness of the legs. Per patient she went for the nap yesterday (05/05/17) and woke up at around 4 pm and started having severe lower back pain, was getting worse through the night, and this morning she was unable to walk and had to hold on to stuff to walk, felt it was due to weakness and severe pain in the back radiating to the legs, denies any urinary incontinence or bowel incontinence. She also complaints of tingling numbness in both LE, left worse than right, also feels there is tingling and numbness in the right UE but denies any arm weakness or severe neck pain at present. Denies any trauma or lifting heavy weight. Has severe KILGORE at present, left sided, with photophobia and phonophobia, has had nausea with the KILGORE, has migraines about 2 times a month, is not on any preventative, per patient may take imitrex as needed. 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 Impression R/O Lumbar radiculopathy vs Compressive myelopathy Unlikely to be GBS at present. Migraine with aura, intractable ?Complicate Migraine Plan -Recommend MRI brain, MRI C spine and MRI L spine w/w/o contrast -Recommend MRI Thoracic spine -Recommend Depakote 1 g IV BID for 48 hours for KILGORE -Recommend Decadron 4 mg IV q 6 hrly for 48 hrs for KILGORE -Recommend Magnesium sulphate 1 g iv once for KILGORE -Recommend Toradol 30 mg IV q 6 hrly prn pain and KILGORE for 24 hrs. -Recommend avoiding triptans due to the h/o DVT in the past. -Further recommendation based on neuroimaging findings -Further medical management per ED and primary team -Fall precautions. -Follow up with Neurology as outpatient for KILGORE in 4-6 weeks after discharge. -GI/DVT prophylaxis -please call with questions if any -Thank you for allowing us to participate in patients care and management I spent 60 minutes of critical care time taking history, doing physical examination, reviewing medical records, coordinating care and counseling patient and her mother. Code Visit Inpatient E AND M: [id number] Init Hosp L3 05/06/17 2312 <Electronically signed by Fermin Mitchell MD> Date Fermin Mitchell MD Cosigner Signature (if applicable): Date CC: Edyta Mitchell MD; Joon Han; Russell Mccray Signed HISTORY AND PHYSICAL Observed: 05/06/2017 Status: F Source: [place] EXAM 7:25 PM [facility] REPOSITORY [facility] Medical Records Department [address] [place] [address] History and Physical 05/06/17 1800 MR#: [id number] Acct: [id number] Name: KATIE WARD Rep #: [id number] : 1975 41 From: Aimee Wolfe MD PCP: Russell Mccray Status: ADM IN Y Location: [facility] [id number] Problem List (1) Acute low back pain Status: Acute Qualifiers: Sciatica laterality: sciatica laterality unspecified (2) Migraine Status: Acute Qualifiers: Migraine type: unspecified Status migrainosus presence: without status migrainosus (3) Lumbar radicular pain Status: Acute (4) Weakness of both legs Status: Acute History of Present Illness Date of Admission: 05/06/17 Chief Complaint: low back pain, bilateral leg weakness The patient is a 41 year old F with past medical history of migrainous headache, remote history of DVT who comes in with acute CVA low back pain which radiate when she woke up from a nap. She denies lifting any heavy objects although she admits to carrying her 30 pound youngest child a lot on her hips. She admits that the pain got worse over the night and in the morning she had to hold onto objects to walk. She noticed this morning that her left upper extremity felt numb and had tingling sensation as well as weakness. She admitted also to photophobia as well as headaches with nausea a This headache feels very much like her usual migraine headache. Patient's vitals in the ED were normal. She was seen by the neurologist in the ED and had STAT imaging of the brain, neck and lumbar spine that were all normal except for a report of leptomeningeal enhancement involving the posterior fossa and occipital lobes which was read as meningitis. She was felt by both ED and neurologist not to have meningitis. She however underwent lumbar puncture and I saw her subsequently. 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 Denies: Fever, Malaise, Weight Change Eyes: Denies: Blurred vision, Cataracts, Conjunctivae Inflammation, Pain, Redness, Vision Change HEENT: Reports: Head Aches. Denies: Difficulty Hearing, Difficulty Swallowing, Dysphasia, Hearing Changes, Sinus Congestion, Sinus Drainage, Sore Throat Cardiovascular: Denies: Chest Pain, Claudication, Heaviness, Light Headedness, Orthopnea, Palpitations, Paroxysmal Noc. Dyspnea, Syncope Respiratory: Denies: Cough, Hemoptysis, Shortness of breath at rest, Shortness of breath upon exertion, Sputum production Gastrointestinal: Denies: Abdominal Pain, Constipation, Hematemesis, Hematochezia, Nausea, Vomiting Genitourinary: Denies: Dysuria, Frequency, Incontinence Musculoskeletal: Denies: Joint Pain, Joint stiffness, Joint swelling, Joint Tenderness Skin: Denies: Rash, Wounds Neurological: Denies: Difficulty swallowing, Focal weakness, Numbness, Tingling Psychiatric: Denies: Anxiety, Depression, Homicidal Ideations, Suicidal Ideations Hematologic/ Lymphatic: Denies: Easy Bruising, Easy Bleeding VTE Information - Inpt Only VTE Present on Admission: No VTE Pharm Prophylaxis ordered?: Yes Patient Problems: Active and Suspected Problems (Last Reviewed 02/11/17 @ 15:28 by Parvin Us) Lumbar radicular pain (Acute) Weakness of both legs (Acute) Acute low back pain (Acute) Migraine (Acute) - Physical Exam General: Alert, Oriented x3, Cooperative, - - in some pain after Lumbar puncture HEENT: Atraumatic, PERRLA, EOMI, Normocephalic Oral: Moist Mucosa Neck: Trachea Midline, - - Did not examine as she was soon after lumbar puncture Lungs: Clear to auscultation, Normal air movement Cardiovascular: Regular rate, Regular Rhythm, Normal S1, Normal S2, No murmurs Abdomen: Bowel Sounds Present, Soft, Non Tender, Non-Distended, No Hepato-splenomegaly Extremities: No edema Skin: No rashes Musculoskeletal: No Tenderness to Palpation of Joints or Extremities Lymphatic: No Cervical, Supraclavicular, or Inguinal Adenopathy Neurological: Cranial nerves II-XII grossly intact, Motor Exam 5/5 strength throughout - in both UE, 3/5 in both LE, limited also by pain, did not check for meningeal signs as she was in pain, post spinal tap. Psych/Mental Status: Normal Affect, Appropriate Vital Signs Temp Pulse Resp BP Pulse Ox 98.8 F 84 16 125/76 H 97 05/06/17 08:23 05/06/17 13:43 05/06/17 13:43 05/06/17 13:43 05/06/17 13:43 Oxygen Delivery Method Room Air Weight: 75.4 kg Body Mass Index (BMI) 26.8 Laboratory Tests Past 24 Hrs WBC 13.0 H RBC 4.57 Hgb 13.1 Hct 38.6 MCV 84.5 MCH 28.7 MCHC 33.9 RDW 13.0 RDW Differential 39.9 Assessment/Plan Active and Suspected Problems (Last Reviewed 02/11/17 @ 15:28 by Parvin Us) Lumbar radicular pain (Acute) Weakness of both legs (Acute) Acute low back pain (Acute) Migraine (Acute) 41 year old F with past medical history of migrainous headache, remote history of DVT who comes in with acute CVA low back pain which radiate when she woke up from a nap. 1. Acute low back pain/radicular pain, likely musculoskeletal, MRI of C-spine and lumbar spine negative Plan: Admit to Medsurg for pain control, IV decadron, toradol per neurology recommendations. 2. Acute migrainous headache, will be given depakote IV, magnesium, and decadron. 3. Abnormal MRI brain with findings suggestive of possible meningitis, s/p lumbar puncture, results pending, if suggestive of meningitis, antibiotics will be started. 4. h/o remote DVT 5. DVT PPX -Lovenox SC Code Visit Inpatient E AND M: 55525 Init Hosp L3 05/06/171924 <Electronically signed by Aimee Wolfe MD> Date Aimee Wolfe MD Cosigner Signature: Date (if applicable) CC: Aimee Wolfe MD; Joon Han; Russell Mccray Signed EMERGENCY DEPARTMENT Observed: 05/06/2017 Status: F Source: DIXON SUMMARY 6:52 PM [facility] REPOSITORY [facility] Medical Records Department [address] [place] [address] Emergency Department Summary 05/06/17 0850 MR#: [id number] Acct: [id number] Name: KATIE WARD Rep #: [id number] : 1975 41 From: Astrid Francisco MD PCP: Russell Mccray Status: ADM IN ADDENDUM by ASTRID FRANCISCO MD on 05/06/17 at 1852 MRI of the cervical and lumbar spine returned normal. MRI of the brain showed enhancement of the leptomeninges, which would be consistent with meningitis. The patient, however, clinically does not seem to have signs of meningitis. Her neck is not stiff, she has no meningismus, she is able to touch her chin to her chest, and furthermore, her headache is gone after we gave her pain medication. She also confirmed she has a history of migraines and states this headache did not necessarily feel dissimilar. After discussing with neurology, he agrees that an LP should be performed to make sure this is ruled out. I discussed risks and benefits with patient, she signed consent and agreed to undergo lumbar puncture. The area was performed by myself. She was prepped and draped in a sterile fashion with Betadine with the patient in the right lateral decubitus position, and I chose the site directly distal to the level of the pelvic brim. It was anesthetized several different times because of technical difficulty obtaining CSF, but a total of about 11 cc of plain 1% lidocaine were used. After realigning the patient several times, and determining that her spinous processes were very close together, I eventually was able to get the needle in between them and obtain CSF which was initially bloody but cleared quickly. I did change spinal needles at one point secondary to blood. An opening pressure was obtained, and it was 16.5 cm of water, within normal limits. Spinal fluid is clear/transparent. It is sent for usual initial testing. Discussed with Dr. wolfe for admission, she agrees to follow for results of the testing if none returned while she is in the emergency department. Per neurology Dr. Mitchell, treatment for meningitis would be reasonable to provide only if CSF is consistent with bacterial meningitis. Therefore, I held off on antibiotics, which may not be indicated. Neurology has already ordered Decadron to be given. Date Astrid Francisco MD cc: Joon Han; Russell Mccray * Signed - ER Visit Summary Date of Service: 05/06/17 Chief Complaint: Back pain History of Present Illness: The patient is a 41 F presenting with severe pain in her low back bilateral buttocks radiating all the way down both legs simultaneously, started gradually yesterday when she woke up for a nap in the afternoon, gradually worsening, did not notice left upper extremity involvement until this morning, no right upper extremity involvement. She states she has pain in her left shoulder and all the way down her left arm involving her entire hand, it is numb and painful and all of these 3 extremities. Any movement makes the pain worse. She has not noticed weakness of her legs, but the pain is so severe that she does not want to move anything anyway. She denies any abdominal or chest pain. No upper back or neck pain. No recent injuries, overuse, heavy lifting, or any other physical activity that she can think of to explain the symptoms. No bowel or bladder dysfunction symptoms. Never had anything like this before, has no chronic back issues. 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 She had a DVT in 1 of her legs at one point in time when she was doing a lot of sitting for a [employer] sports tournament, she had swelling with that, it was treated that was remote and she has no symptoms like that now. Other than that, she takes medications for migraines and no other medical problems. Further history obtained a little later adds that she has had some mild soreness in both of her legs off and on for the last few days, but it would go away. The last time she had those symptoms, she was concerned she was having recurrence of her DVT and had an ultrasound of her lower extremities that were negative for DVT. Physical Examination: In painful distress, very anxious, hyperventilating. Tearful. Blood pressure 145/90, heart rate 105, respirations 26, afebrile with pulse ox 100 on room air. She screams in severe pain with barely touching her lower extremities, performing DTRs, and barely moving her toes or foot. Given this, I was not able to perform straight leg raises, but her DTRs are normal, her pulses are normal and symmetric, and her toes are downgoing with no clonus. She does not want to move anything because it hurts too bad to do so, so strength testing in the lower extremities is limited. Sensation is grossly intact but she states things feel tingly and symmetrically. Similar exam in the left upper extremity although strength is excellent and symmetric with the right as are her pulses. There are no rashes or abnormal skin findings or color. She can turn her neck without any difficulty or pain. It is nontender. No meningismus. She is able to rollover with assistance, but it hurt her, she has some tenderness in the sciatic notches bilaterally but nowhere else, there are no rashes. No CVA tenderness. Abdomen is benign with no pulsatile mass. Heart is regular and if she has equal breath sounds bilaterally, but the rest of the thoracic exam is limited secondary to the patient moaning and crying. Test Results: EKG is normal with sinus rhythm at 83. Labs including troponin unremarkable. CTA chest, abdomen, pelvis negative. Emergency Department Course and Treatment: Aortic dissection was ruled out as cause for the symptoms. After her pain was controlled with morphine, I reevaluated her, she has motor weakness in both lower extremities, without being limited by pain. I discussed with neurology Dr. Mitchell, who evaluated her in the ED, and advised that her reflexes were normal but she truly was weak in her lower extremities and he recommended STAT MRI of the low back, but also of the brain and cervical spine, given her all of her symptoms, with and without contrast. Disposition will be pending the results of MRI. At this time patient is comfortable. Disposition: Pending MRI results Impression: Acute low back pain Bilateral lower extremity weakness and paresthesias Left upper extremity paresthesias This note was generated with Tymphany dictation software. It may contain incorrect words, spelling, and punctuation that were not noted in review of the chart prior to signing ED Disposition - Plan for ED Patient: Chief Complaint: Back Referrals: Joon Han [Family Provider] - What to do if you have Problems For any increased pain, shortness of breath, bleeding, nausea or vomiting, chest pain, or any unexpected problems, contact your Primary Care Provider. Call [facility] ([phone]) or report to the closest Emergency Room. Call 911 if necessary. 05/06/17 6865 <Electronically signed by Astrid Francisco MD> Date Astrid Francisco MD Cosigner Signature (If Indicated): Date CC: Joon Han; Russell Mccray SPINAL FLUID CELL Collected: 05/06/2017 Status: C Source: [place] COUNT+DIFF 6:45 PM [facility] REPOSITORY Order Comment: Order Date: 05/06/17 Has pt arrived? Y TYPE CODE TESTS RESULT OUT OF RANGE REFERENCE UNITS LAB L200.2695 0.000-0.000 10 3/uL High TC CSF 0.001 Result Comment: This is the Total Number of Nucleated Cell Types in the Body Fluid. LAB L200.2700 None seen /mm-3 High 55 RBC,CSF LAB L200.2750 0.000-0.00 10 3/uL High 0 WBC,CSF 0.001 LAB L200.3000 Normal PATH REV Reviewed Result Comment: Negative for malignant cells. Joon Diallo M.D. 05/09/17 AMENDED REPORT 05/09/17 1314 PATH REV previously reported as: May follow LAB L200.3510 % BF Normal PMN WBC% 0.0 LAB L200.3515 % BF MN Normal WBC% 100.0 LAB L200.3520 10 3/uL BF MN Normal WBC# 0.001 LAB L200.3525 10 3/uL BF Normal PMN WBC# 0.000 LAB L200.2500 4 Normal TESTED TUBE # LAB L200.2600 Colorless CSF Normal Color COLORLESS LAB L200.2650 Clear Normal APPEARANCE CSF CLEAR Performed By: #### L200.0100 #### [facility] [address] [place], [address] Observed: 05/06/2017 Status: F Source: [place] CULTURE, CSF 6:45 PM [facility] REPOSITORY Order Date: 05/06/17 Has pt arrived? Y GRAM STAIN: NO ORGANISMS SEEN. CALLED TO LGokul CALDERON 05/06/17 AT Gram Stain Centrifuged Specimen? Culture performed on centrifuged specimen Gram Stain No White Blood Cells No organisms seen CSF Culture No growth in 72 hours. Performed By: #### M100.0700 #### [facility] [address] [place], [address] GLUCOSE SPINAL FLUID Collected: 05/06/2017 Status: F Source: [place] 6:45 PM [facility] REPOSITORY TYPE CODE TESTS RESULT OUT OF RANGE REFERENCE UNITS LAB L501.0400 40-75 mg/dL Normal GLU SPINAL 62 FLD Performed By: #### L501.0400, L501.1600 #### [facility] [address] [place], [address] PROTEIN SPINAL FLUID Collected: 05/06/2017 Status: F Source: [place] 6:45 PM [facility] REPOSITORY TYPE CODE TESTS RESULT OUT OF RANGE REFERENCE UNITS LAB L501.1600 15.0-45.0 mg/dL Normal PROTEIN CSF 36.0 Performed By: #### L501.0400, L501.1600 #### [facility] [address] [place], [address] BRAIN W/WO CONTRAST Observed: 05/06/2017 Status: F Source: [place] 12:31 PM [facility] REPOSITORY [facility] Imaging Services [address] [place] [address] Brain W/WO Contrast MR#: [id number] Acct: [id number] Name: KATIE WARD Rep #: [id number] : 1975 F 41 From: Marissa Diane MD PCP: Russell Mccray Status: REG ER Study: Brain W/WO Contrast Date of Exam: 05/06/17 Exam# [id number] Ordering Dr: Astrid Francisco MD STUDY: MRI BRAIN WITH AND WITHOUT CONTRAST REASON FOR EXAM: Female, 41 years old. Bilateral lower extremity weakness. Questionable Guillian O'Neals. TECHNIQUE: Standardized multiplanar fat and water weighted pulse sequences were obtained. 7.5 ml of Gadavist contrast material was administered intravenously for the contrast portion of the examination. Several images are limited by patient motion. COMPARISON: None. FINDINGS: Normal size of the ventricles and extra-axial spaces for the patient's age. Normal white matter tracts of the supratentorial brain. There is no evidence for recent intracranial ischemia or other cause of cytotoxic edema on diffusion weighted imaging (DWI). Normal T2* images of the brain without demonstrated susceptibility artifact. There is no demonstrated hemosiderin stain. Normal bilateral basal ganglia. Normal thalami. There is no extra-axial fluid accumulation. Normal flow voids within the major intracranial circulation suggesting patency by spin echo criteria. Normal venous enhancement. There is questionable leptomeningeal enhancement involving the left cerebellum and occipital lobe. There is also questionable subtle leptomeningeal enhancement involving the occipital lobes and inferior cerebral hemispheres.. Normal sella turcica, pituitary gland, infundibular stalk, optic chiasm and hypothalamus. Normal tectal plate and pineal gland. Normal midbrain, jung and medulla. Normal cerebellum. Normal basal cisterns. Normal bilateral temporal bones. Normal bilateral internal auditory canals. No demonstrated orbital abnormality, within the constraints of a routine brain study. There is mucoperiosteal inflammatory disease of the paranasal sinuses consistent with mild chronic sinusitis. Normal calvarium and skull base. Normal visualized soft tissue structures. Normal visualized upper cervical spine. MRI/Brain W/WO Contrast IMPRESSION: Questionable leptomeningeal enhancement involving the posterior fossa and occipital lobes. This could be the result of meningitis. Suggest clinical correlation and correlation with lumbar puncture. Electronically Signed: Marissa Diane MD at 16:46 EST , Service support , CC: ASTRID FRANCISCO MD; Russell Mccray Rn Mental Health: Signed SPINE CERVICAL W/WO Observed: 05/06/2017 Status: F Source: [place] CONTRAST 12:31 PM [facility] REPOSITORY [facility] Imaging Services [facility] [place] [place] [address] Spine Cervical W/WO Contrast MR#: [id number] Acct: [id number] Name: KATIE WARD Rep #: [id number] : 1975 F 41 From: Marissa Diane MD PCP: Russell Mccray Status: REG ER Study: Spine Cervical W/WO Contrast Date of Exam: 05/06/17 Exam# [id number] Ordering Dr: Astrid Francisco MD STUDY: MRI CERVICAL SPINE WITH AND WITHOUT CONTRAST REASON FOR EXAM: Female, 41 years old. Bilateral lower extremity and left upper extremity weakness with numbness and headache. TECHNIQUE: Standardized fat and water weighted pulse sequences were obtained in the sagittal and axial following I.V. administration of 7.5 ml of Gadavist contrast material. COMPARISON: Prior comparison studies are not available for review at this time. FINDINGS: Normal foramen magnum and brainstem-cervical cord junction. Normal craniovertebral junction. Normal anterior atlantoaxial articulation. Normal odontoid process. Normal cervical lordosis. Normal vertebral bodies and posterior osseous elements. C2-3: Normal endplates. Normal disc height, signal and morphology. Normal central canal and intervertebral neural foramina. C3-4: Normal endplates. Normal disc height, signal and morphology. Normal central canal and intervertebral neural foramina. C4-5: Normal endplates. Normal disc height, signal and morphology. Normal central canal and intervertebral neural foramina. C5-6: Normal endplates. Normal disc height, signal and morphology. Normal central canal and intervertebral neural foramina. C6-7: Normal endplates. Normal disc height, signal and morphology. Normal central canal and intervertebral neural foramina. C7-T1: Normal endplates. Normal disc height, signal and morphology. Normal central canal and intervertebral neural foramina. Normal cervical cord. There is no demonstrated cervical cord syrinx cavity. Normal visualized soft tissue structures. MRI/Spine Cervical W/WO Contrast IMPRESSION: Normal unenhanced and enhanced MR examination of the cervical spine. Electronically Signed: Marissa Diane MD at 16:51 EST , Service support , CC: ASTRID FRANCISCO MD; Russell Mccray Rn Mental Health: Signed SPINE LUMBAR W/WO Observed: 05/06/2017 Status: F Source: [place] CONTRAST 12:31 PM [facility] REPOSITORY [facility] Imaging Services [address] [place] [address] Spine Lumbar W/WO Contrast MR#: [id number] Acct: [id number] Name: KATIE WARD Rep #: [id number] : 1975 F 41 From: Marissa Diane MD PCP: Russell Mccray Status: REG ER Study: Spine Lumbar W/WO Contrast Date of Exam: 05/06/17 Exam# [id number] Ordering Dr: Astrid Francisco MD STUDY: MRI LUMBAR SPINE WITH AND WITHOUT CONTRAST REASON FOR EXAM: Female, 41 years old. Bilateral lower extremity weakness. TECHNIQUE: Standardized fat and water weighted pulse sequences were obtained in the sagittal and axial planes. 7.5 ml of Gadavist contrast material was administered for the contrast portion of the examination. COMPARISON: None FINDINGS: T12-L1: Normal endplates. Normal disc height, signal and morphology. Normal bilateral facet joints. Normal central canal and bilateral lateral recesses. Normal bilateral intervertebral neural foramina. Normal lumbar lordosis. There is no substantial scoliosis. Normal conus medullaris that terminates at the L1-2 level. L1-2: Normal endplates. Normal disc height, signal and morphology. Normal bilateral facet joints. Normal central canal and bilateral lateral recesses. Normal bilateral intervertebral neural foramina. L2-3: Normal endplates. Normal disc height, signal and morphology. Normal bilateral facet joints. Normal central canal and bilateral lateral recesses. Normal bilateral intervertebral neural foramina. L3-4: Normal endplates. Normal disc height, signal and morphology. Normal bilateral facet joints. Normal central canal and bilateral lateral recesses. Normal bilateral intervertebral neural foramina. L4-5: Normal endplates. Normal disc height, signal and morphology. Normal bilateral facet joints. Normal central canal and bilateral lateral recesses. Normal bilateral intervertebral neural foramina. L5-S1: Normal endplates. Normal disc height, signal and morphology. Normal bilateral facet joints. Normal central canal and bilateral lateral recesses. Normal bilateral intervertebral neural foramina. Normal visualized sacral ala. Normal visualized paraspinous soft tissue structures. There is no demonstrated abnormal enhancement. MRI/Spine Lumbar W/WO Contrast IMPRESSION: Normal enhanced and unenhanced MR examination of the lumbar spine. Electronically Signed: Marissa Diane MD at 16:58 EST , Service support , CC: ASTRID FRANCISCO MD; Russell Mccray Rn Mental Health: Signed BASIC METABOLIC Collected: 05/06/2017 Status: F Source: [place] PROFILE (BMP) 8:55 AM [facility] REPOSITORY Order Comment: 'TROP' Serial specimen #1, #2, #3, or #4: 1 TYPE CODE TESTS RESULT OUT OF RANGE REFERENCE UNITS LAB L501.0100 74-106 mg/dL High GLU 121 Result Comment: Fasting Glucose result from 100 to 125 mg/dL suggests IMPAIRED HOMEOSTASIS per A.D.A. criteria. Please note revised GLUCOSE reference range effective 2017. LAB L501.1000 7-18 mg/dL Normal BUN 8 LAB L501.1100 0.55-1.02 mg/dL Normal CREAT,SERUM 0.92 Result Comment: The validity of the calculated GFR AND GFRAA in patients over 70 years has not been determined. Clinical correlation is essential. LAB L501.1110 >60 mL/min Normal EST GFR 72 Result Comment: Non- GFR Calc LAB L501.1115 >60 mL/min Normal EST GFR - AA 87 Result Comment: GFR Calc LAB L501.1255 ml/min Normal Estimated CRCL 76.09 LAB L501.1300 10-20 RATIO Low BUN/CRE 8.7 LAB L501.2200 8.5-10 mg/dL Normal .1 CA 8.8 LAB L501.5300 136-14 mmol/L Normal 5 NA 137 LAB L501.5600 3.5-5. mmol/L Normal 1 K 3.5 LAB L501.5900 98-107 mmol/L Normal CL 107 LAB L501.6100 21.0-3 mmol/L Low 2.0 CO2 20.0 LAB L501.6200 5-15 Normal GAP 10 Performed By: #### L500.2500, L501.4010 #### [facility] [address] [place], [address] TROPONIN-I Collected: 05/06/2017 Status: F Source: [place] 8:55 AM [facility] REPOSITORY Order Comment: 'TROP' Serial specimen #1, #2, #3, or #4: 1 TYPE CODE TESTS RESULT OUT OF RANGE REFERENCE UNITS LAB L501.4010 <0.06 ng/mL Normal < 0.02 TROPONIN-I Result Comment: TROPONIN-I EXPECTED VALUES <0.05 NEGATIVE 0.06 - 0.59 AT RISK OF CO > OR = 0.60 SUGGEST CO Performed By: #### L500.2500, L501.4010 #### [facility] [address] [place], [address] CBC W/DIFF, AUTOMATED Collected: 05/06/2017 Status: F Source: [place] 8:55 AM [facility] REPOSITORY TYPE CODE TESTS RESULT OUT OF RANGE REFERENCE UNITS LAB L100.1000 4.4-11.0 K/mm3 High WBC 13.0 LAB L100.1200 4.2-5.4 M/mm3 Normal RBC 4.57 LAB L100.1300 12.0-15.0 g/dl Normal HGB 13.1 LAB L100.1400 37-47 % Normal HCT 38.6 LAB L100.1500 81-99 fL Normal MCV 84.5 LAB L100.1600 27.0-32.0 pg Normal MCH 28.7 LAB L100.1700 32-36 g/gl Normal MCHC 33.9 LAB L100.1810 11.6-14.6 % Normal RDW CV 13.0 LAB L100.1820 35.1-43.9 fl Normal RDW SD 39.9 LAB L100.1900 150-450 K/mm3 Normal PLT 211 LAB L100.2000 6.2-12.0 fl Normal MPV 10.7 LAB L100.2100 47-70 % High NEUT% 92.1 LAB L100.2200 19-41 % Low LY% 4.4 LAB L100.2300 0-10 % Normal MONO% 3.2 LAB L100.2400 0-5 % Normal EO% 0.0 LAB L100.2500 0-1 % Normal BASO% 0.1 LAB L100.2550 0.0-0.9 % Normal IM GRAN % 0.200 Result Comment: IG% - Immature Granulocytes (promyelocytes, myelocytes and metamyelocytes) > 1% indicates that a LEFT SHIFT is Present. LAB L100.2620 2.0-7.7 X10 3/uL High Absolute Neut 12.0 LAB L100.2720 0.83-4.51 X10 3/ul Low Absolute Lymph 0.57 LAB L100.4500 Normal SMEAR COMMENT Result Comment: LYMPHOPENIA NOTED Performed By: #### L100.0100 #### [facility] [address] [place], [place], [id number] LIVER PROFILE Collected: 05/06/2017 Status: F Source: [place] 8:55 AM [facility] REPOSITORY TYPE CODE TESTS RESULT OUT OF RANGE REFERENCE UNITS LAB L501.1500 6.4-8.2 g/dL Normal T PROT 7.8 LAB L501.1800 3.2-5.0 g/dL Normal ALB 3.8 LAB L501.1950 2.2-4.2 g/dL Normal GLOB 4.0 LAB L501.4100 15-37 U/L Low AST 12 LAB L501.4305 45-117 U/L Normal ALK P 50 LAB L501.4405 13-56 U/L Normal ALT 17 Result Comment: Please note revised ALT reference range effective 2017. LAB L501.4600 0.20-1.00 mg/dL Normal T BILI 0.80 LAB L501.4700 0.00-0.30 mg/dL Normal D BILI 0.19 Performed By: #### L500.3400 #### [facility] [address] [place], [place], [id number] CTA CHEST W/WO Observed: 05/06/2017 Status: F Source: [place] CONTRAST 8:45 AM [facility] REPOSITORY [facility] Imaging Services [address] [place] [address] CTA Chest W/WO Contrast MR#: [id number] Acct: [id number] Name: KATIE WARD Rep #: [id number] : 1975 F 41 From: Iain Rose MD PCP: Russell Mccray Status: REG ER Study: CTA Chest W/WO Contrast Date of Exam: 05/06/17 Exam# [id number] Ordering Dr: Astrid Francisco MD STUDY: CTA CHEST REASON FOR EXAM: Female, 41 years old. Back pain and left upper extremity pain. RADIATION DOSAGE (If Supplied By Facility): CTDIvol = ( 6.65 ) mGy, DLP = ( 327.94 ) mGycm TECHNIQUE: The examination was performed with the intravenous administration of 100 ml of Isovue 300 contrast material. Post-processing of the angiographic images was performed, with multiplanar reformation and 3D reconstruction. Individualized dose optimization techniques were used for this CT. COMPARISON: None. FINDINGS: Normal enhancement of the main pulmonary artery and right and left pulmonary arteries. Normal enhancement of the bilateral peripheral pulmonary arteries. There is no demonstrated pulmonary embolism. Normal thoracic aorta and visualized great vessels. There is no demonstrated aortic dissection. Normal heart and pericardium. Normal mediastinum. Normal hilar regions. Normal visualized trachea and bronchi. The lungs are well expanded. Normal pulmonary parenchyma. Normal pleura. Normal chest wall structures. Normal osseous structures. Normal visualized upper abdomen. CT/CTA Chest W/WO Contrast IMPRESSION: Normal CTA chest examination, without a demonstrated pulmonary embolism or arterial dissection. Electronically Signed: Iain Rose MD at 10:53 EST Tel [phone], Service support , CC: ASTRID FRANCISCO MD; Russell Mccray Rn Mental Health: Signed CTA ABDOMEN W/WO Observed: 05/06/2017 Status: F Source: [place] CONTRAST 8:45 AM [facility] REPOSITORY [facility] Imaging [place] [address] CTA Abdomen W/WO Contrast MR#: [id number] Acct: [id number] Name: KATIE WARD Rep #: [id number] : 1975 F 41 From: Iain Rose MD PCP: Russell Mccray Status: REG ER Study: CTA Abdomen W/WO Contrast Date of Exam: 05/06/17 Exam# [id number] Ordering Dr: Astrid Francisco MD STUDY: CTA CHEST REASON FOR EXAM: Female, 41 years old. Back pain and left upper extremity pain. RADIATION DOSAGE (If Supplied By Facility): CTDIvol = ( 6.65 ) mGy, DLP = ( 327.94 ) mGycm TECHNIQUE: The examination was performed with the intravenous administration of 100 ml of Isovue 300 contrast material. Post-processing of the angiographic images was performed, with multiplanar reformation and 3D reconstruction. Individualized dose optimization techniques were used for this CT. COMPARISON: None. FINDINGS: Normal enhancement of the main pulmonary artery and right and left pulmonary arteries. Normal enhancement of the bilateral peripheral pulmonary arteries. There is no demonstrated pulmonary embolism. Normal thoracic aorta and visualized great vessels. There is no demonstrated aortic dissection. Normal heart and pericardium. Normal mediastinum. Normal hilar regions. Normal visualized trachea and bronchi. The lungs are well expanded. Normal pulmonary parenchyma. Normal pleura. Normal chest wall structures. Normal osseous structures. Normal visualized upper abdomen. CT/CTA Abdomen W/WO Contrast IMPRESSION: Normal CTA chest examination, without a demonstrated pulmonary embolism or arterial dissection. Electronically Signed: Iain Rose MD at 10:53 EST Tel [phone], Service support , CC: ASTRID FRANCISCO MD; Russell Mccray Rn Mental Health: Signed ALLERGIES ALLERGIES DATE TYPE / CODE NAME / CODE REACTION SEVERITY SOURCE 02/13/2018 Drug No Known Unknown [facility] Allergy/4160 Allergies/F00 Hospital [address]10(SNOMED [id number](RXNOR Repository CT) M) ENCOUNTERS ENCOUNTERS ADMIT/DISCHARGE ACCOUNT ADMITTING ENCOUNTER LOCATION SOURCE NUMBER CLASS 02/17/2018 [id number] Ambulatory [facility] 0 [facility] ing:OPBI Repository 02/17/2018 [id number] Ambulatory [facility] 8 [facility] ing:MTLAB Repository 02/13/2018 [id number] Ambulatory [facility] 6 [facility] ing:LABSPEC Repository 02/13/2018/ [id number] Ambulatory BMSBuilding:B [place] 8 1 [place] Repository 11/05/2017/ [id number] Ambulatory BMSBuilding:B [place] 8 1 [place] Repository 05/06/2017/ [id number] [place] Ambulatory [place] 8 2 [facility] ing:QY7Lgxk: Repository OM855Izq: 1 05/06/2017 [id number] [place] Ambulatory BMSBuilding:B [place] 0 [place] Repository 05/06/2017 [id number] [place] Ambulatory BMSBuilding:B [place] 1 [place] Repository 05/06/2017 [id number] [place] Ambulatory BMSBuilding:B [place] 5 [place] Repository PAYERS PAYERS ENCOUNTER GUARANTOR PAYER SUBSCRIBER SOURCE 02/17/2018 NADINE Senior Primary NADINE METZ Insurance:Elkin WILKINSONB: [facility], Number: [id number] [facility] [place] [address]Lix: [id number] Repository Date:6835-05-15[address], [place] [address]GG: 02/17/2018 Secondary NOT GIVENUNK [place] Insurance:SELF PAY [facility] Number: Effective Repository Date:2018-01-03 02/17/2018 NADINE Senior Primary NADINE Senior Kennedy [id number] ISAÍAS Insurance:CIGNAPolicy WEAVERDOB: Community [place], Number: [id number] Care Hospital [facility] [place] [address]Ebr: [id number] Repository Date:2714-60-40[address] () [id number], [place] [address]BG: 02/17/2018 Secondary NOT GIVENUNK [place] Insurance:SELF PAY [facility] Number: Effective Repository Date:2018-02-17 02/13/2018 NADINE Senior Primary NADINE Parrish Kennedy [id number] ISAÍAS Insurance:CIGNAPolicy WEAVERDOB: Community [place], Number: [id number] Care Hospital of [facility] [place] [address]Oev: [id number] Repository Date:1208-51-47[address] () [address]PPBOCCAXBE, [place] [address]FZ: 02/13/2018 Secondary NOT GIVENUNK [place] Insurance:SELF PAY [facility] Number: Effective Repository Date:2018-02-13 02/13/2018 NADINE Senior Primary NADINE Benavides [id number] ISAÍAS Insurance:CIGNAPolicy WEAVERDOB: Community [place], Number: [id number] Care Hospital of [facility] [place] [address]Mzg: [id number] Repository Date:5564-57-96[address] () [address]49[address]ZRCVQYRCPWN, [place] [address]NA: 02/13/2018 Secondary NOT GIVENUNK [place] Insurance:SELF PAY [facility] Number: Effective Repository Date:2018-02-13 11/05/2017 Nadine Travis Nadine Senior Kennedy [id number] ISAÍAS Insurance:CIGNAPolicy WeaverDOB: Community [place], Number: [id number] Care Hospital of [facility] [place] [address]Xeg: [id number] Repository Date:1828-40-11[address] () [address]DLHDOJIEBPS, [place] [address]BS: 11/05/2017 Secondary NOT GIVENUNK [place] Insurance:SELF PAY [facility] Number: Effective Repository Date:2017-11-05 05/06/2017 Nadine Senior Primary Nadine Senior [place] [id number] ISAÍAS Insurance:CIGNAPolicy WeaverDOB: Community [place], Number: [id number] Care Hospital [facility] [place] [address]Lni: [id number] Repository [phone] Date:3106-96-80[address] (HP) 351351JLFTHAHUAWJ, [place] [address]VC: 05/06/2017 Secondary NOT GIVENUNK [place] Insurance:SELF PAY [facility] Number: Effective Repository Date:2017-05-06 05/06/2017 Nadine Senior Primary Nadine Senior Kennedy [id number] ISAÍAS Insurance:CIGNAPolicy WeaverDOB: [facility] [place], Number: [id number] Care Hospital of [facility] [place] [address]Uxa: [id number] Repository [phone] Date:3483-84-10[address] () [id number], [place] [address]AS: 05/06/2017 Secondary NOT GIVENUNK [place] Insurance:SELF PAY [facility] Number: Effective Repository Date:2017-05-06 05/06/2017 Nadine Senior Primary Nadine Hathawayoster [id number] ISAÍAS Insurance:CIGNAPolicy WeaverDOB: [facility] [place], Number: [id number] Care Hospital of [facility] [place] [address]Inh: [id number] Repository [phone] Date:3757-99-41S[address] () 282441UKBXSYPZFKK, [place] [address]XM: 05/06/2017 Secondary NOT GIVENUNK [place] Insurance:SELF PAY [facility] Number: Effective Repository Date:2017-05-06 05/06/2017 Nadine Senior Primary Nadine Benavides [id number] ISAÍAS Insurance:CIGNAPolicy WeaverDOB: [facility] [place], Number: [id number] Care Hospital of [facility] [place] [address]Lcz: [id number] Repository [phone] Date:8233-96-84[address] (HP) 166115BXCZVZPBYUB, [place] [address]VT: 05/06/2017 Secondary NOT GIVENUNK [place] Insurance:SELF PAY [facility]: Effective Repository Date:2017-05-06
== END ==
PROVIDERS: Referring Provider Nurse Practitioner Women's Health; Visit Provider Nurse Practitioner Women's Health
DX: Z12.4 Encounter for screening for malignant neoplasm of cervix (principal)
CPT/HCPCS: 87624; 88175; G0145

== ENCOUNTER → 2018-02-17 07:20 | Outpatient (CLI) | payer OTHER, SELFPAY ==
[2018-02-13 14:00] VITALS: BMI 27.9
[2018-02-17 10:49] LABS: Cholesterol 193 mg/dL (200); Glucose 92 mg/dL (74-106); High Density Lipoprotein 56 mg/dL; Triglycerides 119 mg/dL; Very Low Density Lipoprotein 24 mg/dL (5-40)
--- OUTSIDE RECORDS SUMMARY | 2018-04-04 19:02 | XMS RPT_ITS ---
:1975 Author Organization OHIP Support Name Relationship Address Phone [facility] Unavailable [address] + [place] [address] NADINE WARD Unavailable [address] + [place] [address] [facility] Unavailable [address] + [place] [address] NADINE WARD Unavailable [address] + [place] [address] [facility] Unavailable [address] + [place] [address] NADINE WARD Unavailable [address] + [place] [address] [facility] Unavailable [address] + [place] [address] NADINE WARD Unavailable [address] + [place] [address] [facility] Unavailable [address] + [place] [address] NADINE WARD Unavailable [address] + [place] [address] [facility] Unavailable [address] + [place] [address] NADINE WARD Unavailable [address] + [place] [address] [facility] Unavailable [address] + [place] [address] NADINE WARD Unavailable [address] + [place] [address] [facility] Unavailable [address] + [place] [address] NADINE WARD Unavailable [address] + [place] [address] [facility] Unavailable [address] + [place] [address] NADINE WARD Unavailable [address] + [place] [address] Care Team Providers Name Role Phone Karyn Cloud Attending Unavailable Karyn Cloud Referring Unavailable Shazia, Russell Attending Unavailable Shazia, Russell Referring Unavailable Shazia, Russell Primary Care Unavailable Vaccariello, Joon Primary Care Unavailable Shazia, Russell Referring Unavailable [place], [place] Admitting Unavailable Paula, Fermin S. Consulting Unavailable Whitney Cordero Attending Unavailable [place] Admitting Unavailable [place] Attending Unavailable Shazia, Russell Referring Unavailable Vaccariello, Joon Primary Care Unavailable [place], [place] Consulting Unavailable [place] Admitting Unavailable Whitney Cordero Attending Unavailable Shazia, Russell Referring Unavailable Vaccariello, Joon Primary Care Unavailable Paula, Fermin S. Consulting Unavailable Whitney Cordero Consulting Unavailable Pedro Luis, Molly Attending Unavailable Pedro Luis, Karyn Referring Unavailable Shazia, Russell Primary Care Unavailable [place], [place] Admitting Unavailable Whitney Cordero Attending Unavailable Shazia, Russell Referring Unavailable Vaccariello, Joon Primary Care Unavailable Paula, Fermin S. Consulting Unavailable Whitney Cordero Consulting Unavailable Tess Jaquez Attending Unavailable Shazia, Russell Referring Unavailable Dovray, Molly Attending Unavailable Shazia, Russell Referring Unavailable PROBLEMS PROBLEMS DATE TYPE CONDITION / CODE ATTENDING STATUS SOURCE 02/13/2018 Unknown Z12.4 - Encounter Karyn Cloud Active [place] for screening for Community malignant neoplasm [facility] of cervix / Repository Z12.4(ICD-10) 02/13/2018 Unknown Z01.419 - Encounter Karyn Cloud Active [place] for gynecological [facility] examination [facility] (general) (routine) Repository without abnormal findings / Z01.419(ICD-10) PROCEDURES PROCEDURES No Procedure Records FoundRESULTS RESULTS SCREENING MAMM (CAD), Observed: 02/17/2018 Status: F Source: [place] 2:55 PM [facility] HOSPITAL REPOSITORY [facility] Imaging Services [address] [place] [address] SCREENING MAMM (CAD), BILAT MR#: [id number] Acct: [id number] Name: KATIE WARD Rep #: [id number] : 1975 F 42 From: Iain Rose MD PCP: Russell Mccray MD Status: [facility] CL Study: SCREENING MAMM (CAD), BILAT Date of Exam: 02/17/18 Exam# [id number] Ordering Dr: Karyn Cloud NP-Bibi MAMMOGRAPHY - [...] delay biopsy of a clinically suspicious abnormality. [id number] Electronically Signed: Iain Rose MD at 15:56 EST Tel [phone], Service support , CC: LISA Cloud; Russell Mccray MD Artificial Breast Fabricator: Signed LIPID PROFILE Collected: 02/17/2018 Status: F Source: [place] 7:25 AM [facility] REPOSITORY TYPE CODE TESTS RESULT OUT OF [...] 24 Performed By: #### L500.4100, L501.0100 #### [facility] [address] [place], [place], [address] GLUCOSE Collected: 02/17/2018 Status: F Source: [place] 7:25 AM [facility] REPOSITORY TYPE CODE TESTS RESULT OUT OF RANGE REFERENCE UNITS LAB L501.0100 74-106 mg/dL Normal GLU 92 Result Comment: Please note revised GLUCOSE reference range effective 2017. Performed By: #### L500.4100, L501.0100 #### [facility] [address] [place], [address] PAP IG HPV APTIMA Collected: 02/13/2018 Status: F Source: [place] 16/18,45 2:30 PM [facility] REPOSITORY Order Comment: CYTOLOGY INFORMATION: - CLINICAL INFORMATION: ANNUAL - DATE LMP/MENOPAUSE: N/A LMP - COLLECTION VIAL: Thin Prep Vial - MANAGER CHANNEL SOURCE: CERVICAL - COLLECTION TECHNIQUE: BRUSH/SPATULA Specimen Comment: [id number] Specimen Comment: Source.............Cervix Specimen Comment: No. of [...] Normal PERFORM Comment Result Comment: Nadine Gonsalves, Bankruptcy Paralegal (ASCP) LAB L7400.1700 . Normal SIGN Comment [...] 51/52/56/58/59/66/68) without differentiation. Performed at: - [facility] [address] [id number] Web Design Intern: Lilli Lr MD, Phone: [phone] Performed at: = - [facility] [address], [place] [id number] Web Design Intern: Lilli Lr MD, Phone: [phone] Performed By: #### L7400.0280 #### [facility] (refer to report for specific site) refer to report for address and phone number PLAYGROUND ATTENDANT OFFICE VISIT Observed: 02/13/2018 Status: F Source: [place] REPORT 2:26 PM [facility] REPOSITORY [facility] 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 [...] alert, oriented to person, oriented to place HENWI Head: normal to inspection Neck Neck: normal [...] 02/13/18 1426 <Electronically signed by Karyn Cloud ANNEALING OPERATOR-C> Date Karyn Cloud ANNEALING OPERATOR-C Cosigner Signature: Date (if applicable) CC: URGENT CARE VISIT Observed: 11/05/2017 Status: F Source: [place] RE[place] 1:36 PM [facility] REPOSITORY [facility] [address] [place] [address] [address] [place] [address] OFFICE VISIT Date of Service: 11/05/17 MR#: [id number] Acct: [id number] Name: KATIE WARD Rep #: [id number] : 1975 Provider: CHRISTINE Jaquez Age/Sex: 42/F [place] [facility] [place] Status: Signed Intake Vital Signs11/05/17 Height 5 [...] L25.3 Plan Medrol Dose pack called to [facility]. Rec: OTC cortisone cream for rash [...] 05/10/2017 Status: F Source: [place] 4:22 PM [facility] Cardiovascular Services [address] [place] [address] 12 Lead EKG 05/06/17 0852 MR#: [id number] Acct: [id number] Name: KATIE WARD Rep #: [id number] : 1975 41 From: Sebastian Barron MD Attending Dr: Whitney Cordero Status: DIS JENNIFER Ordering Dr: Astrid Francisco MD Date: 05/06/17 Location: [facility] Sex: F C Admitted: 05/06/17 Test Reason [...] ECG Confirmed by JOSE HUGGINS, SEBASTIAN ([id number]), visual effects editor ARIELLE DIANE ([id number]) on 05/10/2017 4:22:11 PM Referred By: Russell Mccray Confirmed By:SEBASTIAN BARRON MD 05/10/17 1622 Date Sebastian Barron MD CC: ASTRID FRANCISCO MD; Joon Han; Russell Mccray Signed DISCHARGE SUMMARY Observed: 05/08/2017 Status: F Source: [place] 8:30 AM [facility] Medical Records Department [address] [place] [address] Discharge Summary 05/07/17 1137 MR#: [id number] Acct: [id number] Name: KATIE WARD Rep #: [id number] : 1975 41 From: Whitney Cordero PCP: Russell Mccray Status: ADM JENNIF[place] Y Location: [place] [id number] ADDENDUM by Whitney Cordero on 05/08/17 at [...] date correction: 05/08/17 Inpatient E AND M: 10280 Disch Hosp 05/08/17 0830 <Electronically signed by [...] Migraines, Hx DVT who presented to the [facility] ED on 05/06/17 with onset severe [...] marked aside glucose 121. Patient admitted to OR, treatment as noted of acute migraine, Neurology [...] applicable Code Visit Inpatient E AND M: 44228 Disch Hosp 05/07/17 1141 <Electronically signed by Whitney Cordero > Date Whitney Cordero Cosigner Signature (if applicable): Date CC: Whitney Cordero; Joon Han; Russell Mccray Signed CBC W/DIFF, AUTOMATED Collected: 05/08/2017 Status: F Source: [place] 5:37 AM [facility] REPOSITORY TYPE CODE TESTS RESULT OUT OF [...] Lymph 0.72 Performed By: #### L100.0100 #### [facility] [address] [place], [address] COMPREHENSIVE METABOLIC Collected: 05/08/2017 Status: F Source: [place] [facility] 5:37 AM [facility] REPOSITORY TYPE CODE TESTS RESULT OUT OF [...] GAP 11 Performed By: #### L500.4050 #### [facility] [address] [place], [address] MAGNESIUM Collected: 05/08/2017 Status: F Source: [place] 5:37 AM [facility] REPOSITORY TYPE CODE TESTS RESULT OUT OF RANGE REFERENCE UNITS LAB L501.5200 1.6-2.6 mg/dL Normal MG 2.5 Result Comment: Please note revised Magnesium reference range effective 2017. Performed By: #### L501.5200 #### [facility] [address] [place], [address] DISCHARGE INSTRUCTION Observed: 05/07/2017 Status: F Source: [place] 11:37 AM [facility] REPOSITORY [facility] Medical Records Department [address] [place] [address] Instructions for Home/Discharge Instructions 05/07/17 1055 MR#: [id number] Acct: [id number] Name: KATIE WARD Rep #: [id number] : 1975 41 From: Whitney Cordero PCP: Russell Mccray Status: ADM IN - [...] 05/07/2017 Status: F Source: [place] 5:24 AM [facility] REPOSITORY TYPE CODE TESTS RESULT OUT OF [...] Lymph 0.54 Performed By: #### L100.0100 #### [facility] [address] [place], [address] BASIC METABOLIC Collected: 05/07/2017 Status: F Source: [place] PROFILE ([facility]) 5:24 AM [facility] REPOSITORY TYPE CODE TESTS RESULT OUT OF [...] GAP 6 Performed By: #### L500.2500 #### [facility] [address] [facility] [place], [address] SPINE THORACIC Observed: 05/06/2017 Status: F Source: [place] (ROUTINE) 11:14 PM [facility] REPOSITORY [facility] Imaging Services [address] [place] [address] Spine Thoracic (Routine) MR#: [id number] Acct: [id number] Name: KATIE WARD Rep #: [id number] : 1975 F 41 From: Marissa Diane MD PCP: Russell Mccray Status: ADM IN Study: Spine Thoracic (Routine) Date of Exam: 05/07/17 Exam# [id number] Ordering Dr: Fermin [place] MD STUDY: MRI [...] , CC: Edyta [place] MD; Russell Mccray Artificial Breast Fabricator: Signed CONSULTATION Observed: 05/06/2017 Status: F Source: [place] 11:12 PM [facility] REPOSITORY [facility] Medical Records Department [address] [place] [address] Consultation 05/06/17 1421 MR#: [id number] Acct: [id number] Name: KATIE WARD Rep #: [id number] : 1975 41 From: Fermin [place] MD PCP: Russell Mccray Status: ADM IN Location: [place] [address]-1 Problem List (1) Lumbar radicular pain Status: [...] mother. Code Visit Inpatient E AND M: 80817 Init Hosp L3 05/06/17 2312 <Electronically signed by Fermin [place] MD> Date Fermin [place] MD Cosigner Signature (if applicable): Date CC: Edyta [place] MD; Joon Han; Russell Mccray Signed HISTORY AND PHYSICAL Observed: 05/06/2017 Status: F Source: [place] EXAM 7:25 PM [facility] REPOSITORY [facility] Medical Records Department [address] [place] [address] History and Physical 05/06/17 1800 MR#: [id number] Acct: [id number] Name: KATIE WARD Rep #: [id number] : 1975 41 From: Aimee Wolfe MD PCP: Russell Mccray Status: ADM IN Y Location: [facility] TI513-3 Problem List (1) Acute low back pain [...] LEEP Psychiatric History: No pertinent psych hx MANAGER CHANNEL History: No pertinent MANAGER CHANNEL history Lives: With Family Smoking Status: Never [...] SC Code Visit Inpatient E AND M: 08721 Init Hosp L3 05/06/171924 <Electronically signed by Aimee Wolfe MD> Date Aimee Wolfe MD Cosigner Signature: Date (if applicable) CC: Aimee Wolfe MD; Joon Han; Russell Mccray Signed EMERGENCY DEPARTMENT Observed: 05/06/2017 Status: F Source: [place] SUMMARY 6:52 PM [facility] REPOSITORY [facility] Medical Records Department [address] [place] [address] Emergency Department Summary 05/06/17 0850 MR#: [id number] Acct: [id number] Name: KATIE WARD Rep #: [id number] : 1975 41 From: Astrid Francisco MD [...] 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 It may contain incorrect words, [...] problems, contact your Primary Care Provider. Call [facility] ([phone]) or report to the closest Emergency Room. Call 911 if necessary. 05/06/17 1501 <Electronically signed by Astrid Francisco MD> Date Astrid Francisco MD Cosigner Signature (If Indicated): Date CC: Joon Han; Russell Mccray SPINAL FLUID CELL Collected: 05/06/2017 Status: C Source: [place] COUNT+DIFF 6:45 PM [facility] REPOSITORY Order Comment: Order Date: 05/06/17 Has [...] CSF CLEAR Performed By: #### L200.0100 #### [facility] [address] [place], [address] Observed: 05/06/2017 Status: F Source: [place] CULTURE, CSF 6:45 PM [facility] REPOSITORY Order Date: 05/06/17 Has pt arrived? Y GRAM STAIN: NO ORGANISMS SEEN. CALLED TO LGokul CALDERON 05/06/17 AT Gram Stain Centrifuged Specimen? Culture performed on centrifuged specimen Gram Stain No White Blood Cells No organisms seen CSF Culture No growth in 72 hours. Performed By: #### M100.0700 #### [facility] [address] [facility] [place], [address] GLUCOSE SPINAL FLUID Collected: 05/06/2017 Status: F Source: [place] 6:45 PM [facility] REPOSITORY TYPE CODE TESTS RESULT OUT OF RANGE REFERENCE UNITS LAB L501.0400 40-75 mg/dL Normal GLU SPINAL 62 FLD Performed By: #### L501.0400, L501.1600 #### [facility] [address] [facility] [place], [address] PROTEIN SPINAL FLUID Collected: 05/06/2017 Status: F Source: [place] 6:45 PM [facility] REPOSITORY TYPE CODE TESTS RESULT OUT OF RANGE REFERENCE UNITS LAB L501.1600 15.0-45.0 mg/dL Normal PROTEIN CSF 36.0 Performed By: #### L501.0400, L501.1600 #### [facility] [address] [place], [address] BRAIN W/WO CONTRAST Observed: 05/06/2017 Status: F Source: [place] 12:31 PM [facility] REPOSITORY [facility] Imaging Services [address] [place] [address] Brain W/WO Contrast MR#: [id number] Acct: [id number] Name: KATIE WARD Rep #: [id number] : 1975 F 41 From: Marissa Diane MD PCP: Russell Mccray Status: REG ER Study: Brain W/WO Contrast Date of Exam: 05/06/17 Exam# [id number] Ordering Dr: Astrid Francisco MD STUDY: MRI BRAIN WITH AND WITHOUT CONTRAST REASON FOR EXAM: Female, 41 years old. Bilateral lower extremity weakness. Questionable [place]illian [place]. TECHNIQUE: Standardized multiplanar fat and water weighted [...] , CC: ASTRID FRANCISCO MD; Russell Mccray Artificial Breast Fabricator: Signed SPINE CERVICAL W/WO Observed: 05/06/2017 Status: F Source: [place] CONTRAST 12:31 PM [facility] REPOSITORY [facility] Imaging Services [facility] [place] [place] [address] Spine Cervical W/WO Contrast MR#: [id number] Acct: [id number] Name: KATIE WARD Rep #: [id number] : 1975 F 41 From: Marissa Diane MD PCP: Russell Mccray Status: REG ER Study: Spine Cervical W/WO Contrast Date of Exam: 05/06/17 Exam# [id number] Ordering Dr: Astrid Francisco MD STUDY: MRI [...] , CC: ASTRID FRANCISCO MD; Russell Mccray Artificial Breast Fabricator: Signed SPINE LUMBAR W/WO Observed: 05/06/2017 Status: F Source: [place] CONTRAST 12:31 PM [facility] REPOSITORY [facility] Imaging Services [address] [place] [address] Spine Lumbar W/WO Contrast MR#: [id number] Acct: [id number] Name: KATIE WARD Rep #: [id number] : 1975 F 41 From: Marissa Diane MD PCP: Russell Mccray Status: REG ER Study: Spine Lumbar W/WO Contrast Date of Exam: 05/06/17 Exam# [id number] Ordering Dr: Astrid Francisco MD STUDY: MRI [...] , CC: ASTRID FRANCISCO MD; Russell Mccray Artificial Breast Fabricator: Signed BASIC METABOLIC Collected: 05/06/2017 Status: F Source: [place] PROFILE (BMP) 8:55 AM [facility] REPOSITORY Order Comment: 'TROP' Serial specimen #1, [...] 10 Performed By: #### L500.2500, L501.4010 #### [facility] [address] [place], [address] TROPONIN-I Collected: 05/06/2017 Status: F Source: [place] 8:55 AM [facility] REPOSITORY Order Comment: 'TROP' Serial specimen #1, #2, #3, or #4: 1 TYPE CODE TESTS RESULT OUT OF RANGE REFERENCE UNITS LAB L501.4010 <0.06 ng/mL Normal < 0.02 TROPONIN-I Result Comment: TROPONIN-I EXPECTED VALUES <0.05 NEGATIVE 0.06 - 0.59 AT RISK OF PA > OR = 0.60 SUGGEST PA Performed By: #### L500.2500, L501.4010 #### [facility] [address] [place], [address] CBC W/DIFF, AUTOMATED Collected: 05/06/2017 Status: F Source: [place] 8:55 AM [facility] REPOSITORY TYPE CODE TESTS RESULT OUT OF [...] LYMPHOPENIA NOTED Performed By: #### L100.0100 #### [facility] [address] [place], [place], [address] LIVER PROFILE Collected: 05/06/2017 Status: F Source: [place] 8:55 AM [facility] REPOSITORY TYPE CODE TESTS RESULT OUT OF [...] BILI 0.19 Performed By: #### L500.3400 #### [facility] [address] [facility] [place], [place], [address] CTA CHEST W/WO Observed: 05/06/2017 Status: F Source: [place] CONTRAST 8:45 AM [facility] REPOSITORY [facility] Imaging Services [address] [place] [address] CTA Chest W/WO Contrast MR#: [id number] Acct: [id number] Name: KATIE WARD Rep #: [id number] : 1975 F 41 From: Iain Rose MD PCP: Russell Mccray Status: REG ER Study: CTA Chest W/WO Contrast Date of Exam: 05/06/17 Exam# [id number] Ordering Dr: Astrid Francisco MD STUDY: CTA [...] Iain Rose MD at 10:53 EST Tel [phone], Service support , CC: ASTRID FRANCISCO MD; Russell Mccray Artificial Breast Fabricator: Signed CTA ABDOMEN W/WO Observed: 05/06/2017 Status: F Source: [place] CONTRAST 8:45 AM [facility] REPOSITORY [facility] Imaging [place] [address] CTA Abdomen W/WO Contrast MR#: [id number] Acct: [id number] Name: KATIE WARD Rep #: [id number] : 1975 F 41 From: Iain Rose MD PCP: Russell Mccray Status: REG ER Study: CTA Abdomen W/WO Contrast Date of Exam: 05/06/17 Exam# [id number] Ordering Dr: Astrid Francisco MD STUDY: CTA [...] Iain Rose MD at 10:53 EST Tel [phone], Service support , CC: ASTRID FRANCISCO MD; Russell Mccray Artificial Breast Fabricator: Signed ALLERGIES ALLERGIES DATE TYPE / CODE NAME / CODE REACTION SEVERITY SOURCE 02/13/2018 Drug No Known Unknown [facility] Allergy/4160 Allergies/F00 Hospital 85653(SNOMED 2489637(RXNOR Repository CT) M) ENCOUNTERS ENCOUNTERS ADMIT/DISCHARGE ACCOUNT ADMITTING ENCOUNTER LOCATION SOURCE NUMBER CLASS 02/17/2018 [id number] Ambulatory [place] 0 [facility] ing:OPBI Repository 02/17/2018 [id number] Ambulatory [place] 8 [facility] ing:MTLAB Repository 02/13/2018 [id number] Ambulatory [place] 6 [facility] ing:LABSPEC Repository 02/13/2018/ [id number] Ambulatory BMSBuilding:B [employer] 8 1 [facility] Repository 11/05/2017/ [id number] Ambulatory BMSBuilding:B [place] 8 1 [facility] Repository 05/06/2017/ [id number] [place] Ambulatory [place] [employer] 8 2 [facility] ing:WI2Ggon: Repository [id number]: 1 05/06/2017 [id number] [place] Ambulatory BMSBuilding:B [place] 0 [facility] Repository 05/06/2017 [id number] [place] Ambulatory BMSBuilding:B [place] 1 [facility] Repository 05/06/2017 [id number] [place] Ambulatory BMSBuilding:B [place] 5 [facility] Repository PAYERS PAYERS ENCOUNTER GUARANTOR PAYER SUBSCRIBER SOURCE 02/17/2018 NADINE Senior Primary NADINE METZ Insurance:Elkin WILKINSONB: [facility], Number: [id number] [address]Qkz: [id number] Repository Date:2654-77-[address], [place] [address]GD: 02/17/2018 Secondary NOT GIVENUNK [employer] Insurance:SELF PAY [facility] Number: Effective Repository Date:2018-01-03 02/17/2018 NADINE Senior Primary NADINE Senior [place] [id number] ISAÍAS Insurance:CIGNAPolicy WEAVERDOB: Community [place], Number: [id number] [address]Vre: [id number] Repository Date:2058-42-51[address] () [place], [place] [address]GD: 02/17/2018 Secondary NOT GIVENUNK [employer] Insurance:SELF PAY [facility] Number: Effective Repository Date:2018-02-17 02/13/2018 NADINE Senior Primary NADINE Parrish [place] [id number] ISA[address]AS Insurance:CIGNAPolicy WEAVERDOB: Community [place], Number: [id number] [facility] [address]Eff: [id number] Repository Date:1660-09-50YZ [address] () [place], [place] [address]VK: 02/13/2018 Secondary NOT GIVENUNK [place] Insurance:SELF PAY [facility] Number: Effective Repository Date:2018-02-13 02/13/2018 NADINE Senior Primary NADINE [place] [id number] ISAÍAS Insurance:CIGNAPolicy WEAVERDOB: Community [place], Number: [id number] [facility] [address]Wfd: [id number] Repository Date:8281-43-36IV [address] () [place], [place] [address]NZ: 02/13/2018 Secondary NOT GIVENUNK [employer] Insurance:SELF PAY [facility] Number: Effective Repository Date:2018-02-13 11/05/2017 Nadine Travis Nadine Senior [place] [id number] ISAÍAS Insurance:CIGNAPolicy WeaverDOB: Community [place], Number: [id number] [facility] [address]Ehv: [id number] Repository Date:6744-33-96YL [address] () [address]QRCQWAPW[place], [place] [address]FD: 11/05/2017 Secondary NOT GIVENUNK [employer] Insurance:SELF PAY [facility] Number: Effective Repository Date:2017-11-05 05/06/2017 Nadine Senior Primary Nadine Senior [employer] [id number] ISAÍAS Insurance:CIGNAPolicy WeaverDOB: Community [place] [place], Number: [id number] [address]Xdm: [id number] Repository [phone] Date:[id number] (HP) [id number], [place] [address]UV: 05/06/2017 Secondary NOT GIVENUNK [place] Insurance:SELF PAY [facility] Number: Effective Repository Date:2017-05-06 05/06/2017 Nadine Senior Primary Nadine Senior Kennedy [id number] ISAÍAS Insurance:CIGNAPolicy WeaverDOB: [facility] [place], Number: [id number] [facility] [address]Svh: [id number] Repository [phone] Date:[id number] () [id number], [place] [address]WJ: 05/06/2017 Secondary NOT GIVENUNK [place] Insurance:SELF PAY [facility] Number: Effective Repository Date:2017-05-06 05/06/2017 Nadine Senior Primary Nadine Hathawayoster [id number] ISAÍAS Insurance:CIGNAPolicy WeaverDOB: [facility] [place], Number: [id number] [facility] [address]Ysz: [id number] Repository [phone] Date:4454-16-60QS [address] () [id number], [place] [address]SU: 05/06/2017 Secondary NOT GIVENUNK [place] Insurance:SELF PAY [facility] Number: Effective Repository Date:2017-05-06 05/06/2017 Nadine Senior Primary Nadine Benavides [id number] ISAÍAS Insurance:CIGNAPolicy WeaverDOB: [facility] [place], Number: [id number] [facility] [address]Rhf: [id number] Repository [phone] Date:8006-80-44TJ [address] (HP) [id number], [place] [address]PM: 05/06/2017 Secondary NOT GIVENUNK [employer] Insurance:SELF PAY [facility] Effective Repository Date:2017-05-06
== END ==
PROVIDERS: Family Provider Family Medicine; PCP Family Medicine; Referring Provider Family Medicine; Visit Provider Family Medicine
DX: Z13.1 Encounter for screening for diabetes mellitus (principal); Z13.220 Encounter for screening for lipoid disorders
CPT/HCPCS: 36415; 80061; 82947

== ENCOUNTER → 2018-02-17 14:54 | Outpatient (CLI) | payer OTHER, SELFPAY ==
[2018-02-13 14:00] VITALS: BMI 27.9
--- NOTE | 2018-02-17 14:55 | BI_ITS ---
MAMMOGRAPHY - BILATERAL SCREENING REASON FOR EXAM: Female, 42 years old. Routine annual screening examination. PERTINENT HISTORY: Non-contributory. TECHNIQUE: Digital bilateral breast negrita (3D mammographic acquisition) in the CC and MLO projections. 2-D mediolateral oblique (MLO) and craniocaudad (CC) views of both breasts were obtained. CAD: Full Field Digital Mammography with Computer Added Detection was performed. COMPARISON: None. Baseline examination. FINDINGS: Breast Composition: The breasts are heterogeneously dense, which may obscure small masses. There are no dominant masses or suspicious calcifications. No other significant abnormalities are identified. BI/SCREENING MAMM (CAD), BILAT IMPRESSION: Negative screening mammogram. Yearly followup mammogram recommended. (A) ASSESSMENT CATEGORY: BIRADS Category 1: Negative. A letter regarding these results will be sent to the patient by the facility within 30 days. Approximately 10% of breast cancers are not detected by mammography. A normal mammogram should not delay biopsy of a clinically suspicious abnormality. [id number] Electronically Signed: Iain Rose MD at 15:56 EST Tel [phone], Service support ,
--- OUTSIDE RECORDS SUMMARY | 2018-05-24 06:11 | XMS RPT_ITS ---
:1975 Author Organization OHIP Support Name Relationship Address Phone [facility] Unavailable [address] + [place] [address] NADINE WARD Unavailable [address] + [place] [address] [facility] Unavailable [address] + [place] [address] NADINE WARD Unavailable [address] + [place] [address] [facility] Unavailable [address] + [place] [address] NADINE WARD Unavailable [address] + [place] [address] [facility] Unavailable [address] + [place] [address] NADINE WARD Unavailable [address] + [place] [address] [facility] Unavailable [address] + [place] [address] NADINE WARD Unavailable [address] + [place] [address] [facility] Unavailable [address] + [place] [address] NADINE WARD Unavailable [address] + [place] [address] [facility] Unavailable [address] + [place] [address] NADINE WARD Unavailable [address] + [place] [address] [facility] Unavailable [address] + [place] [address] NADINE WARD Unavailable [address] + [place] [address] [facility] Unavailable [address] + [place] [address] NADINE WARD Unavailable [address] + [place] [address] Care Team Providers Name Role Phone Karyn Cloud Attending Unavailable Karyn Cloud Referring Unavailable Shazia, Russell Attending Unavailable Shazia, Russell Referring Unavailable Shazia, Russell Primary Care Unavailable Vaccariello, Joon Primary Care Unavailable Shazia, Russell Referring Unavailable Paint[place], [place] Admitting Unavailable Paula, Fermin S. Consulting Unavailable Whitney Cordero Attending Unavailable [place], [place] Admitting Unavailable [place], [place] Attending Unavailable Shazia, Russell Referring Unavailable Vaccariello, Joon Primary Care Unavailable [place], [place] Consulting Unavailable [place], [place] Admitting Unavailable Whitney Cordero Attending Unavailable Shazia, Russell Referring Unavailable Vaccariello, Joon Primary Care Unavailable Paula, Fermin S. Consulting Unavailable Whitney Cordero Consulting Unavailable Pedro Luis, Molly Attending Unavailable Pedro Luis, Karyn Referring Unavailable Shazia, Russell Primary Care Unavailable [place], [place] Admitting Unavailable Whitney Cordero Attending Unavailable Shazia, Russell Referring Unavailable Vaccariello, Joon Primary Care Unavailable Paula, Fermin S. Consulting Unavailable Whitney Cordero Consulting Unavailable Tess Jaquez Attending Unavailable Shazia, Russell Referring Unavailable [place], Molly Attending Unavailable Shazia, Russell Referring Unavailable PROBLEMS PROBLEMS DATE TYPE CONDITION / CODE ATTENDING STATUS SOURCE 02/13/2018 Unknown Z12.4 - Encounter Karyn Cloud Active [place] for screening for Community malignant neoplasm [facility] of cervix / Repository Z12.4(ICD-10) 02/13/2018 Unknown Z01.419 - Encounter Karyn Cloud Active [place] for gynecological [facility] examination [facility] (general) (routine) Repository without abnormal findings / Z01.419(ICD-10) PROCEDURES PROCEDURES No Procedure Records FoundRESULTS RESULTS SCREENING MAMM (CAD), Observed: 02/17/2018 Status: F Source: [place] 2:55 PM [facility] REPOSITORY [facility] Imaging Services [address] [place] [address] SCREENING MAMM (CAD), BILAT MR#: [id number] Acct: [id number] Name: KATIE WARD Rep #: [id number] : 1975 F 42 From: Iain Rose MD PCP: Russell Mccray MD Status: [facility] Study: SCREENING MAMM (CAD), BILAT Date of Exam: 02/17/18 Exam# [id number] Ordering Dr: Karyn Cloud NP-Bibi MAMMOGRAPHY - [...] delay biopsy of a clinically suspicious abnormality. [id number] Electronically Signed: Iain Rose MD at 15:56 EST Tel [phone], Service support , CC: LISA Cloud; Russell Mccray MD Neurophysiologist: Signed LIPID PROFILE Collected: 02/17/2018 Status: F Source: [place] 7:25 AM [facility] [place] TYPE CODE TESTS RESULT [...] 24 Performed By: #### L500.4100, L501.0100 #### [facility] [address] [place], [place], [address] GLUCOSE Collected: 02/17/2018 Status: F Source: [place] 7:25 AM [facility] [place] TYPE CODE TESTS RESULT OUT OF RANGE REFERENCE UNITS LAB L501.0100 74-106 mg/dL Normal GLU 92 Result Comment: Please note revised GLUCOSE reference range effective 2017. Performed By: #### L500.4100, L501.0100 #### [facility] [address] [place], [address] PAP IG HPV APTIMA Collected: 02/13/2018 Status: F Source: [place] 16/18,45 2:30 PM [facility] Order Comment: CYTOLOGY INFORMATION: - CLINICAL INFORMATION: ANNUAL - DATE LMP/MENOPAUSE: N/A LMP - COLLECTION VIAL: Thin Prep Vial - METAL RIVETER SOURCE: CERVICAL - COLLECTION TECHNIQUE: BRUSH/SPATULA Specimen Comment: [id number] Specimen Comment: Source.............Cervix Specimen Comment: No. of [...] Normal PERFORM Comment Result Comment: Nadine Gonsalves, Rn On Site (ASCP) LAB L7400.1700 . Normal SIGN Comment [...] 51/52/56/58/59/66/68) without differentiation. Performed at: - [facility] [address] [id number] Car Mover: Lilli Lr MD, Phone: [phone] Performed at: = - [facility] [address], [place] [id number] Car Mover: Lilli Lr MD, Phone: [phone] Performed By: #### L7400.0280 #### [facility] (refer to report for specific site) refer to report for address and phone number CONSULTATIVE SALES ASSOCIATE OFFICE VISIT Observed: 02/13/2018 Status: F Source: [place] REPORT 2:26 PM [facility] 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 [...] alert, oriented to person, oriented to place HENNH Head: normal to inspection Neck Neck: normal [...] 02/13/18 1426 <Electronically signed by Karyn Cloud ACID FILLER-C> Date Karyn Cloud ACID FILLER-C Cosigner Signature: Date (if applicable) CC: URGENT CARE VISIT Observed: 11/05/2017 Status: F Source: [place] REPORT 1:36 PM [facility] [address] [place] [address] [address] [place] [address] OFFICE VISIT Date of Service: 11/05/17 MR#: [id number] Acct: [id number] Name: KATIE WARD Rep #: [id number] : 1975 Provider: CHRISTINE Jaquez Age/Sex: 42/F Location: [facility] Status: Signed Intake Vital Signs11/05/17 Height 5 [...] L25.3 Plan Medrol Dose pack called to [facility] pharmacy. Rec: OTC cortisone cream for rash [...] 05/10/2017 Status: F Source: [place] 4:22 PM [facility] Cardiovascular Services [address] [place] [address] 12 Lead EKG 05/06/17 0852 MR#: [id number] Acct: [id number] Name: KATIE WARD Rep #: [id number] : 1975 41 From: Sebastian Barron MD Attending Dr: Whitney Cordero Status: DIS JENNIFER Ordering Dr: Astrid Francisco MD Date: 05/06/17 Location[place] [facility] Sex: F C Admitted: 05/06/17 Test Reason [...] ECG Confirmed by JOSE HUGGINS, SEBASTIAN ([id number]), acquisition editor ARIELLE DIANE ([id number]) on 05/10/2017 4:22:11 PM Referred By: Russell Mccray Confirmed By:SEBASTIAN BARRON MD 05/10/17 1622 Date Sebastian Barron MD CC: ASTRID FRANCISCO MD; Joon aHn; Russell Mccray Signed DISCHARGE SUMMARY Observed: 05/08/2017 Status: F Source: [place] 8:30 AM [facility] Medical Records Department [address] [place] [address] Discharge Summary 05/07/17 1137 MR#: [id number] Acct: [id number] Name: KATIE WARD Rep #: [id number] : 1975 41 From: Whitney Cordero PCP: Russell Mccray Status: ADM [place] Y Location: [place] [id number] ADDENDUM by Whitney Cordero on 05/08/17 at [...] date correction: 05/08/17 Inpatient E AND M: 79343 Disch Hosp 05/08/17 0830 <Electronically signed by Whitney Cordero > Date Whitney Cordero cc: Whitney Cordero; Joon aHn; Russell Mccray * Signed Discharge Date and [...] Migraines, Hx DVT who presented to the [facility] ED on 05/06/17 with onset severe low [...] marked aside glucose 121. Patient admitted to [place], treatment as noted of acute migraine, Neurology [...] applicable Code Visit Inpatient E AND M: 85019 Disch Hosp 05/07/17 1141 <Electronically signed by Whitney Cordero > Date Whitney Cordero Cosigner Signature (if applicable): Date CC: Whitney Cordero; Joon Han; Russell Mccray Signed CBC W/DIFF, AUTOMATED Collected: 05/08/2017 Status: F Source: [place] 5:37 AM [facility] [place] TYPE CODE TESTS RESULT [...] Lymph 0.72 Performed By: #### L100.0100 #### [facility] [address] [place], [address] COMPREHENSIVE METABOLIC Collected: 05/08/2017 Status: F Source: [place] [facility] 5:37 AM [facility] TYPE CODE TESTS RESULT [...] GAP 11 Performed By: #### L500.4050 #### [facility] [address] [place], [address] MAGNESIUM Collected: 05/08/2017 Status: F Source: [place] 5:37 AM [facility] [place] TYPE CODE TESTS RESULT OUT OF RANGE REFERENCE UNITS LAB L501.5200 1.6-2.6 mg/dL Normal MG 2.5 Result Comment: Please note revised Magnesium reference range effective 2017. Performed By: #### L501.5200 #### [facility] [address] [place], [address] DISCHARGE INSTRUCTION Observed: 05/07/2017 Status: F Source: [place] 11:37 AM [facility] Medical Records Department [address] [place] [address] Instructions for Home/Discharge Instructions 05/07/17 1055 MR#: [id number] Acct: [id number] Name: KATIE WARD Rep #: [id number] : 1975 41 From: Whitney Cordero PCP: [...] [place] 5:24 AM [facility] TYPE CODE TESTS RESULT [...] Lymph 0.54 Performed By: #### L100.0100 #### [facility] [address] [place], [address] BASIC METABOLIC Collected: 05/07/2017 Status: F Source: [place] PROFILE ([facility]) 5:24 AM [facility] TYPE CODE TESTS RESULT [...] GAP 6 Performed By: #### L500.2500 #### [facility] [address] [facility] [place], [address] SPINE THORACIC Observed: 05/06/2017 Status: F Source: [place] (ROUTINE) 11:14 PM [facility] Imaging Services [address] [place] [address] Spine Thoracic (Routine) MR#: [id number] Acct: [id number] Name: KATIE WARD Rep #: [id number] : 1975 F 41 From: Marissa Diane MD PCP: Russell Mccray Status: ADM IN Study: Spine Thoracic (Routine) Date of Exam: 05/07/17 Exam# [id number] Ordering Dr: Fermin Mitchell MD STUDY: MRI [...] , CC: Edyta Mitchell MD; Russell Mccray Neurophysiologist: Signed CONSULTATION Observed: 05/06/2017 Status: F Source: [place] 11:12 PM [facility] Medical Records Department [address] [place] [address] Consultation 05/06/17 1421 MR#: [id number] Acct: [id number] Name: KATIE WARD Rep #: [id number] : 1975 41 From: Fermin Mitchell MD PCP: Russell Mccray Status: ADM IN Location: [place] [address]-1 Problem List (1) Lumbar radicular pain Status: [...] mother. Code Visit Inpatient E AND M: 66412 Init Hosp L3 05/06/17 2312 <Electronically signed by Fermin Mitchell MD> Date Fermin Mitchell MD Cosigner Signature (if applicable): Date CC: Edyta Mitchell MD; Joon Han; Russell Mccray Signed HISTORY AND PHYSICAL Observed: 05/06/2017 Status: F Source: [place] EXAM 7:25 PM [facility] Medical Records Department [address] [place] [address] History and Physical 05/06/17 1800 MR#: [id number] Acct: [id number] Name: KATIE WARD Rep #: [id number] : 1975 41 From: Aimee Wofle MD PCP: Russell Mccray Status: ADM IN Y Location[place] [facility] QW718-9 Problem List (1) Acute low back pain [...] LEEP Psychiatric History: No pertinent psych hx METAL RIVETER History: No pertinent METAL RIVETER history Lives: With Family Smoking Status: Never [...] SC Code Visit Inpatient E AND M: 48579 Init Hosp L3 05/06/171924 <Electronically signed by Aimee Wolfe MD> Date Aimee Wolfe MD Cosigner Signature: Date (if applicable) CC: Aimee Wolfe MD; Joon Han; Russell Mccray Signed EMERGENCY DEPARTMENT Observed: 05/06/2017 Status: F Source: [place] SUMMARY 6:52 PM [facility] Medical Records Department [address] [place] [address] Emergency Department Summary 05/06/17 0850 MR#: [id number] Acct: [id number] Name: KATIE WARD Rep #: [id number] : 1975 41 From: Astrid Francisco MD [...] 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 It may contain incorrect words, [...] problems, contact your Primary Care Provider. Call [facility] ([phone]) or report to the closest Emergency Room. Call 911 if necessary. 05/06/17 1865 <Electronically signed by Astrid Francisco MD> Date Astrid Francisco MD Cosigner Signature (If Indicated): Date CC: Joon Han; Russell Mccray SPINAL FLUID CELL Collected: 05/06/2017 Status: C Source: [place] COUNT+DIFF 6:45 PM [facility] Order Comment: Order Date: [...] CSF CLEAR Performed By: #### L200.0100 #### [facility] [address] [place], [address] Observed: 05/06/2017 Status: F Source: [place] CULTURE, CSF 6:45 PM [facility] Order Date: 05/06/17 Has pt arrived? Y GRAM STAIN: NO ORGANISMS SEEN. CALLED TO LGokul CALDERON 05/06/17 AT Gram Stain Centrifuged Specimen? Culture performed on centrifuged specimen Gram Stain No White Blood Cells No organisms seen CSF Culture No growth in 72 hours. Performed By: #### M100.0700 #### [facility] [address] [facility] [place], [address] GLUCOSE SPINAL FLUID Collected: 05/06/2017 Status: F Source: [place] 6:45 PM [facility] TYPE CODE TESTS RESULT OUT OF RANGE REFERENCE UNITS LAB L501.0400 40-75 mg/dL Normal GLU SPINAL 62 FLD Performed By: #### L501.0400, L501.1600 #### [facility] [address] [place], [address] PROTEIN SPINAL FLUID Collected: 05/06/2017 Status: F Source: [place] 6:45 PM [facility] TYPE CODE TESTS RESULT OUT OF RANGE REFERENCE UNITS LAB L501.1600 15.0-45.0 mg/dL Normal PROTEIN CSF 36.0 Performed By: #### L501.0400, L501.1600 #### [facility] [address] [place], [address] BRAIN W/WO CONTRAST Observed: 05/06/2017 Status: F Source: [place] 12:31 PM [facility] Imaging Services [address] [place] [address] Brain W/WO Contrast MR#: [id number] Acct: [id number] Name: KATIE WARD Rep #: [id number] : 1975 F 41 From: Marissa Diane MD PCP: Russell Mccray Status: REG ER Study: Brain W/WO Contrast Date of Exam: 05/06/17 Exam# [id number] Ordering Dr: Astrid Francisco MD STUDY: MRI BRAIN WITH AND WITHOUT CONTRAST REASON FOR EXAM: Female, 41 years old. Bilateral lower extremity weakness. Questionable Guillian Eclectic. TECHNIQUE: Standardized multiplanar fat and water weighted [...] , CC: ASTRID FRANCISCO MD; Russell Mccray Neurophysiologist: Signed SPINE CERVICAL W/WO Observed: 05/06/2017 Status: F Source: [place] CONTRAST 12:31 PM [facility] Imaging Services [facility] [place] [address] Spine Cervical W/WO Contrast MR#: [id number] Acct: [id number] Name: KATIE WARD Rep #: [id number] : 1975 F 41 From: Marissa Diane MD PCP: Russell Mccray Status: REG ER Study: Spine Cervical W/WO Contrast Date of Exam: 05/06/17 Exam# [id number] Ordering Dr: Astrid Francisco MD STUDY: MRI [...] , CC: ASTRID FRANCISCO MD; Russell Mccray Neurophysiologist: Signed SPINE LUMBAR W/WO Observed: 05/06/2017 Status: F Source: [place] CONTRAST 12:31 PM [facility] Imaging Services [address] [place] [address] Spine Lumbar W/WO Contrast MR#: [id number] Acct: [id number] Name: KATIE WARD Rep #: [id number] : 1975 F 41 From: Marissa Diane MD PCP: Russell Mccray Status: REG ER Study: Spine Lumbar W/WO Contrast Date of Exam: 05/06/17 Exam# [id number] Ordering Dr: Astrid Francisco MD STUDY: MRI [...] , CC: ASTRID FRANCISCO MD; Russell Mccray Neurophysiologist: Signed BASIC METABOLIC Collected: 05/06/2017 Status: F Source: [place] PROFILE (BMP) 8:55 AM [facility] Order Comment: 'TROP' Serial [...] 10 Performed By: #### L500.2500, L501.4010 #### [facility] [address] [place], [address] TROPONIN-I Collected: 05/06/2017 Status: F Source: [place] 8:55 AM [facility] Order Comment: 'TROP' Serial specimen #1, #2, #3, or #4: 1 TYPE CODE TESTS RESULT OUT OF RANGE REFERENCE UNITS LAB L501.4010 <0.06 ng/mL Normal < 0.02 TROPONIN-I Result Comment: TROPONIN-I EXPECTED VALUES <0.05 NEGATIVE 0.06 - 0.59 AT RISK OF [place] > OR = 0.60 SUGGEST [place] Performed By: #### L500.2500, L501.4010 #### [facility] [address] [facility] [place], [address] CBC W/DIFF, AUTOMATED Collected: 05/06/2017 Status: F Source: [place] 8:55 AM [facility] TYPE CODE TESTS RESULT [...] LYMPHOPENIA NOTED Performed By: #### L100.0100 #### [facility] [address] [place], [place], [address] LIVER PROFILE Collected: 05/06/2017 Status: F Source: [place] 8:55 AM [facility] TYPE CODE TESTS RESULT [...] BILI 0.19 Performed By: #### L500.3400 #### [facility] [address] [facility] [place] [place], [address] CTA CHEST W/WO Observed: 05/06/2017 Status: F Source: [place] CONTRAST 8:45 AM [facility] Imaging Services [address] [place] [address] CTA Chest W/WO Contrast MR#: [id number] Acct: [id number] Name: KATIE AWRD Rep #: [id number] : 1975 F 41 From: Iain Rose MD PCP: Russell Mccray Status: REG ER Study: CTA Chest W/WO Contrast Date of Exam: 05/06/17 Exam# [id number] Ordering Dr: Astrid Francisco MD STUDY: CTA [...] Iain Rose MD at 10:53 EST Tel [phone], Service support , CC: ASTRID FRANCISCO MD; Russell Mccray Neurophysiologist: Signed CTA ABDOMEN W/WO Observed: 05/06/2017 Status: F Source: [place] CONTRAST 8:45 AM [facility] Imaging [place] [address] CTA Abdomen W/WO Contrast MR#: [id number] Acct: [id number] Name: KATIE WARD Rep #: [id number] : 1975 F 41 From: Iain Rose MD PCP: Russell Mccray Status: REG ER Study: CTA Abdomen W/WO Contrast Date of Exam: 05/06/17 Exam# [id number] Ordering Dr: Astrid Francisco MD STUDY: CTA [...] Iain Rose MD at 10:53 EST Tel [phone], Service support , CC: ASTRID FRANCISCO MD; Russell Mccray Neurophysiologist: Signed ALLERGIES ALLERGIES DATE TYPE / CODE NAME / CODE REACTION SEVERITY SOURCE 02/13/2018 Drug No Known Unknown [facility] Allergy/4160 Allergies/F00 Hospital 93497(SNOMED 9996014(RXNOR Repository CT) M) ENCOUNTERS ENCOUNTERS ADMIT/DISCHARGE ACCOUNT ADMITTING ENCOUNTER LOCATION SOURCE NUMBER CLASS 02/17/2018 [id number] Ambulatory [place] 0 [facility] ing:OPBI Repository 02/17/2018 [id number] Ambulatory [place] 8 [facility] ing:MTLAB Repository 02/13/2018 [id number] Ambulatory [place] 6 [facility] ing:LABSPEC Repository 02/13/2018/ [id number] Ambulatory BMSBuilding:B [place] 8 1 [facility] Repository 11/05/2017/ [id number] Ambulatory BMSBuilding:B [place] 8 1 [facility] Repository 05/06/2017/ [id number] [place] Ambulatory [place] 8 2 [facility] ing:FL2Xrsc: Repository KD176Ffy: 1 05/06/2017 [id number] [place] Ambulatory BMSBuilding:B [place] 0 [facility] Repository 05/06/2017 [id number] [place] Ambulatory BMSBuilding:B [place] 1 [facility] Repository 05/06/2017 [id number] [place] Ambulatory BMSBuilding:B [place] 5 [facility] Repository PAYERS PAYERS ENCOUNTER GUARANTOR PAYER SUBSCRIBER SOURCE 02/17/2018 NADINE Senior Primary NADINE METZ Insurance:Elkin WILKINSONB: [facility], Number: [id number] [facility] [place] [address]Coc: [id number] Repository Date:7010-76-88[address]SEUADP[place]MO, [place] [address]QH: 02/17/2018 Secondary NOT GIVENUNK [place] Insurance:SELF PAY [facility] Number: Effective Repository Date:2018-01-03 02/17/2018 NADINE Senior Primary NADINE Senior [place] [id number] ISAÍAS Insurance:CIGNAPolicy WEAVERDOB: Community [place], Number: [id number] Care Hospital of [facility] [place] [address]Yfw: [id number] Repository Date:3871-94-78[address] () [address]BMOMQXQNOUV, [place] [address]OP: 02/17/2018 Secondary NOT GIVENUNK [place] Insurance:SELF PAY [facility] Number: Effective Repository Date:2018-02-17 02/13/2018 NADINE Senior Primary NADINE Parrish [place] [id number] ISAÍAS Insurance:CIGNAPolicy WEAVERDOB: Community [place], Number: [id number] Care Hospital of [facility] [place] [address]Ptq: [id number] Repository Date:3169-53-35[address] () [address]YRZUXXCDLXG, [place] [address]OA: 02/13/2018 Secondary NOT GIVENUNK [place] Insurance:SELF PAY [facility] Number: Effective Repository Date:2018-02-13 02/13/2018 NADINE Senior Primary NADINE [place] [id number] ISAÍAS Insurance:CIGNAPolicy WEAVERDOB: Community [place], Number: [id number] Care Hospital of [facility] [place] [address]Nzu: [id number] Repository Date:3842-10-02YF [address] () [address]54[address]KJYWTQTEHXU, [place] [address]PW: 02/13/2018 Secondary NOT GIVENUNK [place] Insurance:SELF PAY [facility] Number: Effective Repository Date:2018-02-13 11/05/2017 Nadine Travis Nadine Senior [place] [id number] ISAÍAS Insurance:CIGNAPolicy WeaverDOB: Community [place], Number: [id number] Care Hospital [facility] [place] [address]Bii: [id number] Repository Date:5884-55-22NQ [address] () [address]995[address]CRKQZJXXDUF, [place] [address]YV: 11/05/2017 Secondary NOT GIVENUNK [place] Insurance:SELF PAY [facility] [facility] [place] Number: Effective Repository Date:2017-11-05 05/06/2017 Nadine Senior Primary Nadine Senior [place] [id number] ISAÍAS Insurance:CIGNAPolicy WeaverDOB: Community [place], Number: [id number] [address]Ffc: [id number] Repository [phone] Date:[id number] [address] (HP) [id number], [place] [address]KO: 05/06/2017 Secondary NOT GIVENUNK [place] Insurance:SELF PAY [facility] Number: Effective Repository Date:2017-05-06 05/06/2017 Nadine Senior Primary Nadine Senior [place] [id number] ISAÍAS Insurance:CIGNAPolicy WeaverDOB: [facility] [place], Number: [id number] Care Hospital of [facility] [place] [address]Aes: [id number] Repository [phone] Date:[id number] [address] () [id number], [place] [address]EG: 05/06/2017 Secondary NOT GIVENUNK [place] Insurance:SELF PAY [facility] Number: Effective Repository Date:2017-05-06 05/06/2017 Nadine Senior Primary Nadine Hathawayoster [id number] ISAÍAS Insurance:CIGNAPolicy WeaverDOB: [facility] [place], Number: [id number] Care [facility] of [facility] [place] [address]Ovo: [id number] Repository [phone] Date:[id number] [address] () [id number], [place] [address]ZZ: 05/06/2017 Secondary NOT GIVENUNK [place] Insurance:SELF PAY [facility] Number: Effective Repository Date:2017-05-06 05/06/2017 Nadine Senior Primary Nadine Benavides [id number] ISAÍAS Insurance:CIGNAPolicy WeaverDOB: [facility] [place], Number: [id number] [facility] [address]Adq: [id number] Repository [phone] Date:[id number] [address] (HP) [id number], [place] [address]HH: 05/06/2017 Secondary NOT GIVENUNK [place] Insurance:SELF PAY [facility] Effective Rep[facility] Date:2017-05-06
== END ==
PROVIDERS: Family Provider Family Medicine; PCP Family Medicine; Referring Provider Nurse Practitioner Women's Health; Visit Provider Nurse Practitioner Women's Health
DX: Z12.31 Encounter for screening mammogram for malignant neoplasm of breast (principal)
CPT/HCPCS: 77063; 77067

== ENCOUNTER → 2018-07-07 | Outpatient (CLI) | payer OTHER, SELFPAY ==
[2018-02-13 14:00] VITALS: BMI 27.9
[2018-07-07 17:42] LABS: International Normalized Ratio 0.9; Prothrombin Time (Protime)PT. 12.2 SECONDS (11.7-14.9)
[2018-07-07 17:43] LABS: Partial Thromboplast Time 28.6 Seconds (24.1-36.2)
[2018-07-14 16:07] LABS: Dilute Russell Viper Venom 35.2 sec (0.0-47.0); Homocyst(e)ine 9.9 umol/L (0.0-15.0); PTT-Lupus Anticoagulant 34.1 sec (0.0-51.9); Protein C, Functional 100 % (73-180); dPT CONFIRMATION RATIO 1.27 Ratio (0.00-1.40)
[2018-07-17 13:52] LABS: Activated Protein C Resistance 2.8 ratio (2.2-3.5); Anti-Cardiolipin Ab, IgG, Qn < 9 GPL U/mL (0-14); Anti-Cardiolipin Ab, IgM, Qn < 9 MPL U/mL (0-12); Antithrombin 3 Function 120 % (75-135); Beta-2-Glycoprotein I IgG <9 (0-20); Beta-2-Glycoprotein I IgM <9 (0-32); Interpretation Comment: (.); Protein S, Free 80 % (57-157)
== END | disposition home or self-care (01) ==
LOC: MTLAB 15:29
PROVIDERS: Family Provider Family Medicine; PCP Family Medicine; Referring Provider Psychiatry & Neurology Neurology; Visit Provider Psychiatry & Neurology Neurology
DX: I67.6 Nonpyogenic thrombosis of intracranial venous system (principal)
CPT/HCPCS: 36415; 81240; 81241; 81291; 83090; 85300; 85303; 85307; 85420; 85610; 85613; 85705; 85730; 85732

== ENCOUNTER 2018-09-17 23:11 | Emergency (ER) | payer OTHER, SELFPAY ==
[2018-02-13 14:00] VITALS: BMI 27.9
[2018-09-17 23:12] VITALS: BP 149/101; PULSE 84; RESP 20; TEMP 36.6; O2SAT 100; BMI 28.3
--- NOTE | 2018-09-17 23:30 | ED.VIS.GEN ---
History of Present Illness Chief Complaint: Headache Informant: Patient Onset: Today Context: Sudden Onset Timing: Continuous Quality: Throbbing Location: Global Current Severity: Severe Maximum Severity: Severe Worsened by: Light, sound Relieved by: Nothing Associated Symptoms: Photophobia, sonophobia, nausea and vomiting Narrative: Patient is a 43-year-old woman who has history of migraine headaches. She was placed on a monthly prophylactic regimen by her neurologist. She states she was doing well. She has not had a headache this severe for 1 year. She has taken Imitrex x2 with no improvement. She does report photophobia, sonophobia with nausea and vomiting. She denies fever or chills. She denies URI symptoms. She denies urologic symptoms. She denies rash. Denies neck pain or neck stiffness. She denies problems with speech or swallowing. She denies problems with balance. Prior similar symptoms: Yes Recent Illness/Hospitalization: No - Past Medical History (1) ASCUS of cervix with negative high risk HPV Status: Acute (2) History of DVT (deep vein thrombosis) Status: Acute (3) Migraine Status: Acute (4) Weakness of both legs Status: Acute Past Medical History - Allergies and Home Meds Allergies/Adverse Reactions: Allergies topiramate [From Topamax] Allergy (Verified 09/17/18 23:13) Itching Primary Care Physician: Russell Mccray [Primary Care Provider] - Prior records reviewed: Yes Surgical History: - - sinus surgery, LEEP Lives: Alone Smoking Status: Never smoker Alcohol: None - Family History Maternal Family History: Family History (Last Updated 02/13/18 @ 14:02 by Carol Pinzon) Father Hypertension Diabetes H/O aortic valve replacement Family History: Reports: No pertinent history Review of Systems General: Denies: Chills, Fever, Sweats Eyes: Reports: Blurred Vision - bilaterally. Denies: Visual changes - bilaterally, Diplopia ENT: Denies: Bilateral ear pain, Rhinorrhea, Sore throat Cardiovascular: Denies: Chest pain, Palpitations Respiratory: Denies: Dyspnea, Cough, Dyspnea on exertion Gastrointestinal: Denies: Abdominal pain, Nausea, Vomiting, Diarrhea, Melena, Hematochezia Genitourinary: Denies: Dysuria, Hematuria, Frequency Musculoskeletal: Denies: Back pain, Extremity Pain Skin: Denies: Rash, Wounds Neurological: Denies: Headache, Weakness, Numbness Hematologic: Denies: Easy bruising, Easy bleeding Allergy: Denies: Uticaria, Swelling of the mouth Physical Exam Vital Signs/Narrative: Vital Signs Temp Pulse Resp BP Pulse Ox 09/17/18 23:12 98 F 84 20 H 149/101 H 100 Inital Vital Signs reviewed: Yes General: Well nourished, Well developed, Obese, Acute Distress Head: Normocephalic, Atraumatic Eyes: Perrl, EOMI. Negative for: Pale conjunctiva, Scleral icterus, - ENT: Moist mucous membranes, No rhinorrhea, TM's clear Neck: Supple, Nontender, No lymphadenopathy, No JVD Cardiovascular: Regular rate, Regular rhythm, No murmurs, Normal S1, Normal S2 Respiratory: No distress, CTA bilaterally, Chest nontender Abdomen: Soft, Nontender, Nondistended, Normal bowel sounds Back: Nontender, Normal Inspection Extremities: Nontender, No edema. Negative for: Calf Tenderness Skin: Normal color, No rash, No Trauma. Negative for: Cyanosis, Diaphoresis, Jaundice Neurological: Alert, Oriented x3, Cranial nerves II-XII grossly intact, Normal Strength, Normal Sensation, Normal DTR, Normal Gait Psychological: Normal affect, Normal Mood Diagnostic/Tx/Re-eval - Medical Decision Making Patient presents with intractable migraine headache. She will receive a liter of normal saline, 50 mg of Toradol IV push, 10 mg of Reglan IV push and 25 mg of Benadryl IV push. She will be reassessed in 15 to 30 minutes. Symptoms are not suggestive of meningitis or subarachnoid hemorrhage. She was reassessed at 0015. She is now smiling and laughing. She does report marked improvement. Plan is to discharge to home. ED Disposition - Plan for ED Patient: Disposition: Home or Assisted Living Diagnosis: Intractable migraine without aura Instructions: HEADACHE, Migraine (Classical) Referrals: Russell Mccray [Primary Care Provider] - As Needed
[2018-09-17] MEDS: Metoclopramide 10 MG/2 ML Vial IV (23:51)
[2018-09-17] MEDS: Ketorolac 30 MG/ML Syringe IV (23:51)
[2018-09-17] MEDS: DiphenhydrAMINE 50 MG/ML Syringe 25 MG IV (23:51)
[2018-09-17] MEDS: 0.9% Normal Saline 1,000 ML 999 ML IV (23:51)
[2018-09-18 00:42] VITALS: BP 127/99; PULSE 65; RESP 14; O2SAT 98
== END 2018-09-18 00:45 | disposition home or self-care (01) ==
PROVIDERS: Emergency Provider Emergency Medicine; Family Provider Family Medicine; PCP Family Medicine
DX: G43.019 Migraine without aura, intractable, without status migrainosus (principal); E66.9 Obesity, unspecified; Z86.718 Personal history of other venous thrombosis and embolism
CPT/HCPCS: 96361; 96374; 96375; 99283; J7030; A4216

== ENCOUNTER → 2019-03-26 11:11 | Outpatient (CLI) | payer OTHER, SELFPAY ==
--- NOTE | 2019-03-26 14:04 | VDLE_ITS ---
Reason For Study: BLE pain and swelling RIGHT LEFT GSV is normal. GSV is normal. CFV is compressible, spontaneous, phasic, CFV is compressible, spontaneous, phasic, competent and demonstrates normal competent, and demonstrates normal augmentation. augmentation. FV is compressible, spontaneous, phasic, FV is compressible, spontaneous, phasic, competent and demonstrates normal competent and demonstrates normal augmentation. augmentation. POP V is compressible, spontaneous, phasic, POP V is compressible, spontaneous, phasic, competent and demonstrates normal competent and demonstrates normal augmentation. augmentation. T/P Trunk is compressible. T/P Trunk is compressible. PTV is compressible. PTV is compressible. RT PerV is compressible. LT PerV is compressible. Procedure Exam performed in department. The exam was diagnostic. A preliminary report was called and/or faxed to Dr. Archuleta @ 2:55 pm @ [phone]. Interpretation Summary Deep veins of the lower extremities are bilaterally patent and compressible segmentally. There is no evidence of deep vein thrombosis on either side. Valvular competence appears intact within the proximal deep venous systems bilaterally. The great saphenous veins appear bilaterally patent and compressible segmentally. Ordering Physician: Bea Archuleta Referring Physician: Russell Mccray Performed By: Audelia Herbert, RDCS, RVT
[2019-03-26 15:31] LABS: Absolute Lymphocyte Count 1.99 X10^3/uL (0.83-4.51); Absolute Neutrophil Count 4.1 X10^3/uL (2.0-7.7); Basophil# 0.04 X10^3/uL; Basophil% 0.6 % (0-1); Eosinophil# 0.09 X10^3/uL; Eosinophils% 1.3 % (0-5); Hematocrit 41.8 % (37-47); Hemoglobin 13.1 g/dL (12.0-15.0); Lymphocyte # 1.99 X10^3/ul (4.0); Lymphocyte % 29.7 % (19-41); Mean Corp Hgb Conc 31.3 g/dL (32-36); Mean Corpuscular Hgb 27.7 pg (27.0-32.0); Mean Corpuscular Volume 88.4 fL (81-99); Mean Platelet Vol. 11.5 fl (6.2-12.0); Monocyte# 0.43 X10^3/uL; Monocyte% 6.4 % (0-10); NRBC Flagged by Analyzer 0 % (0-5); Neutrophil # 4.13 X10^3/uL (2.7-7.7); Neutrophil % 61.7 % (47-70); Platelet Count 283 K/mm3 (150-450); RBC Distribution Width SD 42.1 fl (35.1-43.9); Red Blood Count 4.73 M/mm3 (4.2-5.4); White Blood Count 6.7 K/mm3 (4.4-11.0)
[2019-03-26 16:14] LABS: ALB/GLOB Ratio 0.9 RATIO (0.9-2.4); AST(SGOT) 13 U/L (15-37); Alanine Aminotransfer ALT/SGPT 23 U/L (13-56); Albumin, Serum 3.9 g/dL (3.2-5.0); Alkaline Phosphatase 51 U/L (45-117); Anion Gap 5 (5-15); BUN 9 mg/dL (7-18); BUN/Creat Ratio 10.3 RATIO (10-20); Calcium,Total 8.6 mg/dL (8.5-10.1); Chloride 107 mmol/L (98-107); Creatinine, Serum 0.88 mg/dL (0.55-1.02); EST Glomerular Filtration Rate 75 mL/min (>60); Est Glom Filt Rate - Afr Amer 91 mL/min (>60); Free T3 2.6 pg/mL (2.18-3.98); Globulin 4.2 g/dL (2.2-4.2); Glucose 103 mg/dL (74-106); Protein, Total 8.1 g/dL (6.4-8.2); Sodium Level 137 mmol/L (136-145); T4 Free Direct 0.88 ng/dL (0.76-1.46); Thyroid Stim Hormone (TSH) 2.18 uIU/mL (0.358-3.74)
== END ==
PROVIDERS: PCP Family Medicine; Referring Provider Family Medicine; Visit Provider Family Medicine
DX: M79.604 Pain in right leg (principal); M79.605 Pain in left leg; R60.9 Edema, unspecified; Z86.718 Personal history of other venous thrombosis and embolism
CPT/HCPCS: 36415; 80053; 84439; 84443; 84481; 85025; 93970

== ENCOUNTER → 2019-03-26 13:56 | Outpatient (CLI) | payer OTHER, SELFPAY | PROVIDERS: PCP Family Medicine; Referring Provider Family Medicine; Visit Provider Family Medicine | DX: M79.604 Pain in right leg (principal); M79.605 Pain in left leg; R60.9 Edema, unspecified; Z86.718 Personal history of other venous thrombosis and embolism ==

== ENCOUNTER → 2019-04-19 16:38 | Outpatient (CLI) | payer OTHER, SELFPAY ==
[2019-04-19 17:49] LABS: Anion Gap 5 (5-15); BUN 14 mg/dL (7-18); BUN/Creat Ratio 12.4 RATIO (10-20); Calcium,Total 9.3 mg/dL (8.5-10.1); Chloride 106 mmol/L (98-107); Creatinine, Serum 1.13 mg/dL (0.55-1.02); EST Glomerular Filtration Rate 56 mL/min (>60); Est Glom Filt Rate - Afr Amer 68 mL/min (>60); Glucose 92 mg/dL (74-106); Potassium 3.3 mmol/L (3.5-5.1); Sodium Level 140 mmol/L (136-145)
== END ==
PROVIDERS: PCP Family Medicine; Visit Provider Family Medicine
DX: R60.9 Edema, unspecified (principal); Z79.899 Other long term (current) drug therapy; Z51.81 Encounter for therapeutic drug level monitoring
CPT/HCPCS: 36415; 80048

== ENCOUNTER → 2020-02-04 13:50 | Outpatient (CLI) | payer OTHER, SELFPAY ==
--- NOTE | 2020-02-04 13:54 | ECHOD_ITS ---
Reason For Study: Lower extremity edema Procedure This was a 2D Doppler, Color Flow transthoracic echocardiogram. Exam performed in department. Left Ventricle Normal LV size. Left ventricular systolic function is normal. The estimated ejection fraction is 60 %. No regional wall motion abnormalities noted. Right Ventricle Normal RV size. Normal systolic function. Atria Normal left atrium. Normal right atrium. Mitral Valve Normal mitral valve. Mild (1+) eccentric mitral valve insufficiency. Tricuspid Valve Normal tricuspid valve. Mild tricuspid valve insufficiency. Aortic Valve Normal aortic valve. Trisinus/trileaflet aortic valve. Pulmonic Valve Normal pulmonic valve. Great Vessels Normal aortic root. The pulmonary artery is normal size. Normal inferior vena cava. Pericardium/Pleural No pericardial effusion. MMode/2D Measurements & Calculations LVIDd: 3.7 cm IVSd: 1.1 cm Ao root diam: 3.1 cm LVIDs: 2.3 cm LVPWd: 0.97 cm RVDd: 3.1 cm FS: 39.2 % LAV(MOD-bp): 36.4 ml LVAd ap4: 27.0 cm2 SV(MOD-sp4): 43.6 ml LAV(MOD-bp) Indexed: 19.0 ml/m2 EDV(MOD-sp4): 73.3 ml LAV(MOD-sp2): 32.7 ml EDV(sp4-el): 76.6 ml LAV(MOD-sp4): 37.7 ml LVAs ap4: 15.8 cm2 ESV(MOD-sp4): 29.7 ml ESV(sp4-el): 30.5 ml EF(MOD-sp4): 59.5 % EF(sp4-el): 60.2 % SV(sp4-el): 46.1 ml LA A4 area: 15.1 cm2 LA dimension(2D): 3.4 cm RA A4 area: 14.0 cm2 Doppler Measurements & Calculations MV E max tobin: 94.5 cm/sec Lat Peak E' Tobin: 9.5 cm/sec Med Peak E' Tobin: 7.0 cm/sec MV A max tobin: 98.2 cm/sec E/E' lat: 9.9 E/E' med: 13.5 MV E/A: 0.96 Ao V2 max: 148.2 cm/sec LV V1 max: 98.1 cm/sec PA V2 max: 82.1 cm/sec Ao max P.8 mmHg LV V1 max P.8 mmHg TR max tobin: 199.5 cm/sec TR max P.0 mmHg Interpretation Summary Normal LV size. Left ventricular systolic function is normal. The estimated ejection fraction is 60 %. Mild (1+) eccentric mitral valve insufficiency. Ordering Physician: Russell Mccray Referring Physician: Russell Mccray Performed By: Jerica Jim RDCS
== END ==
PROVIDERS: PCP Family Medicine; Referring Provider Family Medicine; Visit Provider Family Medicine
DX: I34.0 Nonrheumatic mitral (valve) insufficiency (principal); R60.0 Localized edema
CPT/HCPCS: 93306

== ENCOUNTER → 2020-02-12 16:27 | Outpatient (CLI) | payer OTHER, SELFPAY ==
--- NOTE | 2020-02-12 16:28 | BI_ITS ---
MAMMOGRAPHY - BILATERAL SCREENING REASON FOR EXAM: Female, 44 years old. Routine annual screening examination. PERTINENT HISTORY: Non-contributory. TECHNIQUE: Digital bilateral breast mireya (3D mammographic acquisition) in the CC and MLO projections. 2-D mediolateral oblique (MLO) and craniocaudad (CC) views of both breasts were obtained. CAD: Full Field Digital Mammography with Computer Added Detection was performed. COMPARISON: Comparison is made with prior study dated 02/17/2018. FINDINGS: Breast Composition: The breasts are heterogeneously dense, which may obscure small masses. There are no dominant masses or suspicious calcifications. No other significant abnormalities are identified. There has been no significant change since the prior study. BI/SCREEN MAMM (CAD) W/MIREYA BILAT IMPRESSION: Stable bilateral screening mammogram. Yearly follow-up mammogram recommended. (A) ASSESSMENT CATEGORY: BIRADS Category 1: Negative. A letter regarding these results will be sent to the patient by the facility within 30 days. Approximately 10% of breast cancers are not detected by mammography. A normal mammogram should not delay biopsy of a clinically suspicious abnormality. [id number] Electronically Signed: Iain Rose, at 9:03 EST , Service support ,
== END ==
PROVIDERS: PCP Family Medicine; Referring Provider Family Medicine; Visit Provider Family Medicine
DX: Z12.31 Encounter for screening mammogram for malignant neoplasm of breast (principal)
CPT/HCPCS: 77063; 77067

== ENCOUNTER → 2021-01-02 09:40 | Outpatient (CLI) | payer OTHER, SELFPAY ==
[2021-01-02 12:08] LABS: Erythrocyte Sedimentation Rate 4 mm/hr (0-30)
[2021-01-02 12:11] LABS: Absolute Lymphocyte Count 1.67 X10^3/uL (0.83-4.51); Absolute Neutrophil Count 3.2 X10^3/uL (2.0-7.7); Basophil# 0.03 X10^3/uL; Basophil% 0.6 % (0-1); Eosinophil# 0.06 X10^3/uL; Eosinophils% 1.1 % (0-5); Hematocrit 40.6 % (37-47); Hemoglobin 13.2 g/dL (12.0-15.0); Lymphocyte # 1.67 X10^3/ul (0.83-4.51); Lymphocyte % 30.8 % (19-41); Mean Corp Hgb Conc 32.5 g/dL (32-36); Mean Corpuscular Hgb 29.3 pg (27.0-32.0); Mean Corpuscular Volume 90.2 fL (81-99); Mean Platelet Vol. 11.4 fl (6.2-12.0); Monocyte# 0.43 X10^3/uL; Monocyte% 7.9 % (0-10); NRBC Flagged by Analyzer 0 % (0-5); Neutrophil # 3.22 X10^3/uL (2.7-7.7); Neutrophil % 59.4 % (47-70); Platelet Count 234 K/mm3 (150-450); RBC Distribution Width CV 12.3 % (11.6-14.6); RBC Distribution Width SD 40.8 fl (35.1-43.9); White Blood Count 5.4 K/mm3 (4.4-11.0)
[2021-01-02 12:38] LABS: AST(SGOT) 9 U/L (15-37); Alanine Aminotransfer ALT/SGPT 13 U/L (13-56); Albumin, Serum 3.8 g/dL (3.2-5.0); Alkaline Phosphatase 45 U/L (45-117); Anion Gap 9 (5-15); BUN 10 mg/dL (7-18); CRP < 2.90 mg/L (0.0-3.0); Calcium,Total 8.7 mg/dL (8.5-10.1); Chloride 107 mmol/L (98-107); Creatinine, Serum 0.91 mg/dL (0.55-1.02); EST Glomerular Filtration Rate 71 mL/min (>60); Est Glom Filt Rate - Afr Amer 86 mL/min (>60); Globulin 3.8 g/dL (2.2-4.2); Glucose 96 mg/dL (74-106); Potassium 3.8 mmol/L (3.5-5.1); Protein, Total 7.6 g/dL (6.4-8.2); Rheumatoid Factor < 10.0 IU/mL (<15); Sodium Level 139 mmol/L (136-145)
[2021-01-02 12:53] LABS: Hepatitis B Surface Antibody Reactive; Hepatitis B Surface Antigen Non-Reactive (Nonreactive); Hepatitis C Antibody Non-Reactive (Nonreactive)
[2021-01-04 11:25] LABS: CCP IgG Antibodies 6 units (0-19)
== END ==
PROVIDERS: PCP Family Medicine; Referring Provider Internal Medicine Rheumatology; Visit Provider Internal Medicine Rheumatology
DX: M06.4 Inflammatory polyarthropathy (principal); G43.909 Migraine, unspecified, not intractable, without status migrainosus; I34.0 Nonrheumatic mitral (valve) insufficiency; J30.9 Allergic rhinitis, unspecified; Z87.442 Personal history of urinary calculi; Z86.718 Personal history of other venous thrombosis and embolism
CPT/HCPCS: 36415; 80053; 85025; 85652; 86140; 86200; 86431; 86706; 86803; 87340

== ENCOUNTER 2021-03-10 07:28 | Outpatient (CLI) | payer OTHER, SELFPAY ==
[2021-03-10 09:59] LABS: Absolute Neutrophil Count 3.4 X10^3/uL (2.0-7.7); Basophil# 0.02 X10^3/uL; Basophil% 0.4 % (0-1); Eosinophil# 0.12 X10^3/uL; Eosinophils% 2.3 % (0-5); Hematocrit 36.3 % (37-47); Hemoglobin 11.7 g/dL (12.0-15.0); Lymphocyte % 27.2 % (19-41); Mean Corp Hgb Conc 32.2 g/dL (32-36); Mean Corpuscular Hgb 29.3 pg (27.0-32.0); Mean Platelet Vol. 10.5 fl (6.2-12.0); Monocyte# 0.23 X10^3/uL; Monocyte% 4.5 % (0-10); NRBC Flagged by Analyzer 0 % (0-5); Neutrophil # 3.37 X10^3/uL (2.7-7.7); Neutrophil % 65.4 % (47-70); Platelet Count 228 K/mm3 (150-450); RBC Distribution Width CV 13.2 % (11.6-14.6); RBC Distribution Width SD 43.7 fl (35.1-43.9); Red Blood Count 3.99 M/mm3 (4.2-5.4); White Blood Count 5.2 K/mm3 (4.4-11.0)
[2021-03-10 10:22] LABS: ALB/GLOB Ratio 0.9 RATIO (0.9-2.4); AST(SGOT) 23 U/L (15-37); Alanine Aminotransfer ALT/SGPT 44 U/L (13-56); Albumin, Serum 3.3 g/dL (3.2-5.0); Alkaline Phosphatase 44 U/L (45-117); Anion Gap 8 (5-15); BUN 14 mg/dL (7-18); BUN/Creat Ratio 17.5 RATIO (10-20); Calcium,Total 8.9 mg/dL (8.5-10.1); Chloride 105 mmol/L (98-107); EST Glomerular Filtration Rate 82 mL/min (>60); Est Glom Filt Rate - Afr Amer 100 mL/min (>60); Globulin 3.5 g/dL (2.2-4.2); Glucose 115 mg/dL (74-106); Potassium 3.7 mmol/L (3.5-5.1); Protein, Total 6.8 g/dL (6.4-8.2); Sodium Level 140 mmol/L (136-145)
== END 2021-03-10 23:59 | disposition short-term general hospital (02) ==
LOC: MTLAB 07:30
PROVIDERS: PCP Family Medicine; Referring Provider Internal Medicine Rheumatology; Visit Provider Internal Medicine Rheumatology
DX: M06.4 Inflammatory polyarthropathy (principal); Z79.899 Other long term (current) drug therapy; G43.909 Migraine, unspecified, not intractable, without status migrainosus; I34.0 Nonrheumatic mitral (valve) insufficiency; J30.9 Allergic rhinitis, unspecified; Z87.442 Personal history of urinary calculi; Z86.718 Personal history of other venous thrombosis and embolism
CPT/HCPCS: 36415; 80053; 85025

== ENCOUNTER 2021-04-05 19:10 | Emergency (ER) | payer OTHER, SELFPAY ==
[2021-04-05 19:11] VITALS: BP 128/95; PULSE 87; RESP 16; TEMP 37.3; TEMP 37.4; O2SAT 100; BMI 29.3
--- NOTE | 2021-04-05 19:55 | EDS_ITS ---
HPI History of Present Illness Chief Complaint: Laceration Informant: patient Onset/Context/Timing Onset: Today (JPTA) Context: Sudden Onset Timing: Continuous Quality of Pain: - (sore) Location: L wrist Current Severity: Moderate Maximum Severity: Moderate Worsened by: tournaquet x 30min upon arrival Relieved by: nothing Associated Symptoms Associated Symptoms: Positive for Parasthesia (only since tournaquet applied); Negative for Weakness and Loss of Funtion Narrative Narrative: Patient states she was cutting vegetables with a kitchen knife, she dropped a piece of squash she tried to pick it up the same time that her dog did, as the 2 were fighting over the piece of squash, the dog knocked her over, accidentally stabbing herself in the left wrist with a knife that was in her right hand. She states this was unintentional. She states immediately there is arteriolar pulsatile bleeding emanating from her left wrist hosing down the kitchen. She called EMS, and they applied a tourniquet to her left proximal forearm, and placed a large gauze dressing over the wound. She denies any symptoms of anemia at this time. No other injuries. Tetanus Immunization: >10 years [facility] Medical History DVT (deep venous thrombosis) Migraine Home Medications cephalexin 500 mg PO Q12 #10 capsule 04/05/21 [Rx Last Taken Unknown] erenumab-aooe [Aimovig Autoinjector] mg SUBCUT 04/05/21 [History Last Taken Unknown] ubrogepant [Ubrelvy] mg 04/05/21 [History Last Taken Unknown] Allergy/AdvReac Type Severity Reaction Status Date / Time topiramate [From Topamax] Allergy Itching Verified 09/17/18 23:13 Family History (Updated 02/13/18 @ 14:02 by Carol Pinzon) Father Hypertension Diabetes H/O aortic valve replacement Surgical History H/O sinus surgery Social History Smoking Status: Never smoker alcohol intake: current details: social substance use type: does not use caffeine: Yes what type of physical activity do you participate in: walking seatbelt use: always do you feel safe at home: Yes additional social history: Nadine- [employer] 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 [employer] ED Constitutional Constitutional ED: Denies chills or fever(s) Musculoskeletal Musculoskeletal: Reports extremity pain; Denies neck pain Integumentary Reports wounds; Denies Abrasions or rash Neurologic Neurologic: Denies paresthesias or weakness EXAM Physical Exam Const Vital Signs: 04/05/21 19:11 Temperature 99.3 F H Temperature Source Oral Pulse Rate 87 Respiratory Rate 16 Blood Pressure 128/95 H Blood Pressure Mean 106 Pulse Ox 100 Oxygen Delivery Method Room Air Positive well nourished and well developed General Appearance ED: well developed and NAD Neck full ROM and supple Back/Spine normal ROM and normal to inspection Extremity full ROM Extremity Narrative: Patient arrives with tourniquet present left proximal forearm, she is cyanotic and decreased sensation distal to this including all fingers with no palpable pulses. No bleeding from the single stab wound to the wrist that is clean-appearing. Neuro oriented x3, no focal motor deficits and no sensory deficits noted Sensorium / Orientation: alert Psych mental status grossly normal and thought process normal Skin Skin Narrative: 0.5 cm clean appearing stab wound to the volar left wrist, rad ial aspect Rashes: no rashes MDM MDM MDM Narrative Medical decision making narrative: Upon the patient's arrival, I left the tourniquet in place, down the dressing, there was no active bleeding, her hand is cyanotic from lack of blood flow and she is starting to have painful numbness. The wound was repaired after instilling lidocaine with epinephrine, and then the tourniquet was let down, there was no active bleeding. Patient does have a radial pulse, and she does have an ulnar pulse. I did not do aggressive irrigation of the wound so as not to disturb the radial artery clot that was likely developing or developed, and she will be placed on prophylactic antibiotics for 5 days, with instructions to remove suture in approximately 10 days. Patient was observed for about an hour post procedure, she had no recurrent bleeding, the reperfusion pain in her hands subsided. Procedures Lacerations Left wrist: Length: 0.5 cm Depth: Sub Q (Unable to determine exact depth of wound) Shape: Linear (Clean) Prep: Sterile Conditions and Chlorhexadine Laceration repair: Lidocaine with epi, Local (1 cc of 2% lidocaine with epinephrine) and Skin sutures Number of Sutures/[place]: 1 Suture Information: Ethilon, Horizontal, Mattress and 5-0 Discharge Plan Triage Chief Complaint: Laceration ED Provider: Fernandez Herrera Dx/Rx/DC Orders Clinical Impression: Puncture wound of left wrist, Injury of left radial artery, Dptbjfnjzy-tjdnlfl-ygdchosax (DTP) vaccination Instructions: ED Stab Wound Prescriptions: New cephalexin [cephalexin] 500 MG capsule 500 mg PO Q12 Qty: 10 RF: 0 No Action Aimovig Autoinjector 140 mg/mL auto-injector SUBCUT RF: 0 Ubrelvy 100 mg tablet RF: 0 Primary Care Provider: Russell Mccray Referrals: Russell Mccray [Primary Care Provider] - 10 Day for suture removal (and reevaluation) Disposition Disposition: Home, Self Care
[2021-04-05] MEDS: Diphth,Pertuss(Acell),Tet Vac 0.5 ML Vial IM (20:16)
[2021-04-05] MEDS: Lidocaine 2% /Epi 1:100 (50ml) 50 ML Vial INFILT (20:16)
[2021-04-05] MEDS: Cephalexin 250 MG Capsule 500 MG PO (20:21)
== END 2021-04-05 20:31 | disposition home or self-care (01) ==
PROVIDERS: Emergency Provider Emergency Medicine; PCP Family Medicine; Visit Provider Emergency Medicine
DX: S61.532A Puncture wound without foreign body of left wrist, initial encounter (principal); S65.102A Unspecified injury of radial artery at wrist and hand level of left arm, initial encounter; W26.0XXA Contact with knife, initial encounter; Y93.9 Activity, unspecified; Y92.9 Unspecified place or not applicable; G43.909 Migraine, unspecified, not intractable, without status migrainosus; Z86.718 Personal history of other venous thrombosis and embolism; Z79.899 Other long term (current) drug therapy; Z23 Encounter for immunization
CPT/HCPCS: 12001; 90471; 90715; 99285

== ENCOUNTER 2021-04-23 08:56 | Outpatient (CLI) | payer OTHER, SELFPAY | END 2021-04-23 23:59 | disposition home or self-care (01) | LOC: CVS 08:59 | PROVIDERS: PCP Family Medicine; Referring Provider Surgery Vascular Surgery; Visit Provider Surgery Vascular Surgery | DX: I77.1 Stricture of artery (principal) | CPT/HCPCS: 93931 ==

== ENCOUNTER 2021-05-12 07:30 | Outpatient (CLI) | payer OTHER, SELFPAY ==
[2021-05-12 10:13] LABS: Absolute Lymphocyte Count 1.86 X10^3/uL (0.83-4.51); Absolute Neutrophil Count 2.7 X10^3/uL (2.0-7.7); Basophil# 0.03 X10^3/uL; Basophil% 0.6 % (0-1); Eosinophil# 0.13 X10^3/uL; Eosinophils% 2.5 % (0-5); Hematocrit 36.7 % (37-47); Lymphocyte # 1.86 X10^3/ul (0.83-4.51); Lymphocyte % 36.3 % (19-41); Mean Corp Hgb Conc 32.7 g/dL (32-36); Mean Corpuscular Hgb 30.2 pg (27.0-32.0); Mean Corpuscular Volume 92.4 fL (81-99); Mean Platelet Vol. 10.4 fl (6.2-12.0); Monocyte# 0.39 X10^3/uL; Monocyte% 7.6 % (0-10); NRBC Flagged by Analyzer 0 % (0-5); Neutrophil % 52.8 % (47-70); Platelet Count 239 K/mm3 (150-450); RBC Distribution Width CV 13.5 % (11.6-14.6); RBC Distribution Width SD 45.6 fl (35.1-43.9); Red Blood Count 3.97 M/mm3 (4.2-5.4); White Blood Count 5.1 K/mm3 (4.4-11.0)
[2021-05-12 10:41] LABS: AST(SGOT) 23 U/L (15-37); Alanine Aminotransfer ALT/SGPT 45 U/L (13-56); Albumin, Serum 3.5 g/dL (3.2-5.0); Alkaline Phosphatase 40 U/L (45-117); Anion Gap 4 (5-15); BUN 11 mg/dL (7-18); BUN/Creat Ratio 13.3 RATIO (10-20); Calcium,Total 8.3 mg/dL (8.5-10.1); Chloride 106 mmol/L (98-107); Creatinine, Serum 0.83 mg/dL (0.55-1.02); EST Glomerular Filtration Rate 79 mL/min (>60); Est Glom Filt Rate - Afr Amer 96 mL/min (>60); Globulin 3.5 g/dL (2.2-4.2); Glucose 94 mg/dL (74-106); Potassium 3.8 mmol/L (3.5-5.1); Sodium Level 137 mmol/L (136-145)
== END 2021-05-12 23:59 | disposition home or self-care (01) ==
LOC: MTLAB 07:35
PROVIDERS: PCP Family Medicine; Referring Provider Internal Medicine Rheumatology; Visit Provider Internal Medicine Rheumatology
DX: M06.4 Inflammatory polyarthropathy (principal); Z79.899 Other long term (current) drug therapy; G43.909 Migraine, unspecified, not intractable, without status migrainosus; I34.0 Nonrheumatic mitral (valve) insufficiency; J30.9 Allergic rhinitis, unspecified; Z87.442 Personal history of urinary calculi; Z86.718 Personal history of other venous thrombosis and embolism
CPT/HCPCS: 36415; 80053; 85025

== ENCOUNTER 2021-06-02 15:00 | Outpatient (CLI) | payer OTHER, SELFPAY ==
--- NOTE | 2021-06-02 15:03 | BI_ITS ---
MAMMOGRAPHY - BILATERAL SCREENING REASON FOR EXAM: Female, 46 years old. Routine annual screening examination. PERTINENT HISTORY: Non-contributory. TECHNIQUE: Digital bilateral breast mireya (3D mammographic acquisition) in the CC and MLO projections. 2-D mediolateral oblique (MLO) and craniocaudad (CC) views of both breasts were obtained. CAD: Full Field Digital Mammography with Computer Added Detection was performed. COMPARISON: Comparison is made with prior examination dated 02/12/2020 and 02/17/2018. FINDINGS: Breast Composition: The breasts are heterogeneously dense, which may obscure small masses. There are no dominant masses or suspicious calcifications. Stable small benign-appearing bilateral axillary lymph nodes. No other significant abnormalities are identified. There has been no significant change since the prior study. BI/SCRN MAMM (CAD)W/MIREYA BILAT IMPRESSION: Stable bilateral screening mammogram. Yearly follow-up mammogram recommended. (A) ASSESSMENT CATEGORY: BIRADS Category 2: Benign. A letter regarding these results will be sent to the patient by the facility within 30 days. Approximately 10% of breast cancers are not detected by mammography. A normal mammogram should not delay biopsy of a clinically suspicious abnormality. [id number] Electronically Signed: Iain Rose MD at 8:11 EDT ,
== END 2021-06-02 23:59 | disposition home or self-care (01) ==
LOC: OPBI 15:01
PROVIDERS: PCP Family Medicine; Visit Provider Family Medicine
DX: Z12.31 Encounter for screening mammogram for malignant neoplasm of breast (principal)
CPT/HCPCS: 77063; 77067

== ENCOUNTER → 2021-07-10 | Outpatient (CLI) | payer OTHER, SELFPAY ==
[2021-07-10 10:35] LABS: Absolute Lymphocyte Count 2.13 X10^3/uL (0.83-4.51); Absolute Neutrophil Count 3.1 X10^3/uL (2.0-7.7); Basophil# 0.04 X10^3/uL; Basophil% 0.7 % (0-1); Eosinophil# 0.12 X10^3/uL; Hematocrit 38.5 % (37-47); Hemoglobin 12.6 g/dL (12.0-15.0); Lymphocyte # 2.13 X10^3/ul (0.83-4.51); Lymphocyte % 35.7 % (19-41); Mean Corp Hgb Conc 32.7 g/dL (32-36); Mean Corpuscular Volume 94.8 fL (81-99); Mean Platelet Vol. 10.8 fl (6.2-12.0); Monocyte# 0.54 X10^3/uL; NRBC Flagged by Analyzer 0 % (0-5); Neutrophil # 3.12 X10^3/uL (2.7-7.7); Neutrophil % 52.3 % (47-70); Platelet Count 240 K/mm3 (150-450); RBC Distribution Width SD 44.8 fl (35.1-43.9); Red Blood Count 4.06 M/mm3 (4.2-5.4)
[2021-07-10 10:48] LABS: ALB/GLOB Ratio 1.1 RATIO (0.9-2.4); AST(SGOT) 15 U/L (15-37); Alanine Aminotransfer ALT/SGPT 28 U/L (13-56); Albumin, Serum 3.6 g/dL (3.2-5.0); Alkaline Phosphatase 39 U/L (45-117); Anion Gap 5 (5-15); BUN 15 mg/dL (7-18); BUN/Creat Ratio 16.6 RATIO (10-20); Chloride 106 mmol/L (98-107); EST Glomerular Filtration Rate 72 mL/min (>60); Est Glom Filt Rate - Afr Amer 87 mL/min (>60); Globulin 3.4 g/dL (2.2-4.2); Glucose 98 mg/dL (74-106); Potassium 3.7 mmol/L (3.5-5.1); Sodium Level 138 mmol/L (136-145)
== END | disposition home or self-care (01) ==
LOC: MTLAB 07:29
PROVIDERS: PCP Family Medicine; Referring Provider Internal Medicine Rheumatology; Visit Provider Internal Medicine Rheumatology
DX: M06.4 Inflammatory polyarthropathy (principal); Z79.899 Other long term (current) drug therapy; G43.909 Migraine, unspecified, not intractable, without status migrainosus; I34.0 Nonrheumatic mitral (valve) insufficiency; J30.9 Allergic rhinitis, unspecified; Z87.442 Personal history of urinary calculi; Z86.718 Personal history of other venous thrombosis and embolism
CPT/HCPCS: 36415; 80053; 85025

== ENCOUNTER → 2021-09-11 | Outpatient (CLI) | payer OTHER, SELFPAY ==
[2021-09-11 10:09] LABS: Absolute Lymphocyte Count 1.86 X10^3/uL (0.83-4.51); Absolute Neutrophil Count 3.2 X10^3/uL (2.0-7.7); Basophil# 0.03 X10^3/uL; Basophil% 0.5 % (0-1); Eosinophil# 0.13 X10^3/uL; Eosinophils% 2.3 % (0-5); Hematocrit 38.9 % (37-47); Lymphocyte # 1.86 X10^3/ul (0.83-4.51); Lymphocyte % 32.2 % (19-41); Mean Corp Hgb Conc 33.4 g/dL (32-36); Mean Corpuscular Hgb 30.6 pg (27.0-32.0); Mean Corpuscular Volume 91.5 fL (81-99); Mean Platelet Vol. 11.2 fl (6.2-12.0); Monocyte# 0.54 X10^3/uL; Monocyte% 9.4 % (0-10); NRBC Flagged by Analyzer 0 % (0-5); Neutrophil % 55.4 % (47-70); Platelet Count 218 K/mm3 (150-450); RBC Distribution Width CV 12.4 % (11.6-14.6); RBC Distribution Width SD 41.1 fl (35.1-43.9); Red Blood Count 4.25 M/mm3 (4.2-5.4); White Blood Count 5.8 K/mm3 (4.4-11.0)
[2021-09-11 10:37] LABS: AST(SGOT) 14 U/L (15-37); Alanine Aminotransfer ALT/SGPT 20 U/L (13-56); Albumin, Serum 3.7 g/dL (3.2-5.0); Alkaline Phosphatase 44 U/L (45-117); Anion Gap 7 (5-15); BUN 15 mg/dL (7-18); BUN/Creat Ratio 17.5 RATIO (10-20); Calcium,Total 9.8 mg/dL (8.5-10.1); Chloride 108 mmol/L (98-107); Creatinine, Serum 0.86 mg/dL (0.55-1.02); EST Glomerular Filtration Rate 76 mL/min (>60); Est Glom Filt Rate - Afr Amer 92 mL/min (>60); Globulin 3.7 g/dL (2.2-4.2); Glucose 112 mg/dL (74-106); Potassium 4.1 mmol/L (3.5-5.1); Protein, Total 7.4 g/dL (6.4-8.2); Sodium Level 141 mmol/L (136-145)
== END | disposition home or self-care (01) ==
LOC: MTLAB 07:26
PROVIDERS: PCP Family Medicine; Referring Provider Internal Medicine Rheumatology; Visit Provider Internal Medicine Rheumatology
DX: M06.4 Inflammatory polyarthropathy (principal); Z79.899 Other long term (current) drug therapy; G43.909 Migraine, unspecified, not intractable, without status migrainosus; I34.0 Nonrheumatic mitral (valve) insufficiency; J30.9 Allergic rhinitis, unspecified; Z87.442 Personal history of urinary calculi; Z86.718 Personal history of other venous thrombosis and embolism
CPT/HCPCS: 36415; 80053; 85025

== ENCOUNTER → 2022-09-23 | Outpatient (CLI) | payer OTHER, SELFPAY ==
[2022-09-23 12:38] LABS: Erythrocyte Sedimentation Rate 6 mm/hr (0-30)
[2022-09-23 12:48] LABS: Absolute Lymphocyte Count 1.55 X10^3/uL (0.83-4.51); Absolute Neutrophil Count 2.9 X10^3/uL (2.0-7.7); Basophil# 0.03 X10^3/uL; Basophil% 0.6 % (0-1); Eosinophil# 0.14 X10^3/uL; Eosinophils% 2.7 % (0-5); Hematocrit 38.9 % (37-47); Hemoglobin 12.6 g/dL (12.0-15.0); Lymphocyte # 1.55 X10^3/ul (0.83-4.51); Lymphocyte % 29.9 % (19-41); Mean Corp Hgb Conc 32.4 g/dL (32-36); Mean Corpuscular Volume 89.6 fL (81-99); Mean Platelet Vol. 11.9 fl (6.2-12.0); Monocyte# 0.55 X10^3/uL; Monocyte% 10.6 % (0-10); NRBC Flagged by Analyzer 0 % (0-5); Platelet Count 265 K/mm3 (150-450); RBC Distribution Width CV 12.3 % (11.6-14.6); RBC Distribution Width SD 40.2 fl (35.1-43.9); Red Blood Count 4.34 M/mm3 (4.2-5.4); White Blood Count 5.2 K/mm3 (4.4-11.0)
[2022-09-23 12:55] LABS: ALB/GLOB Ratio 0.9 RATIO (0.9-2.4); AST(SGOT) 20 U/L (15-37); Alanine Aminotransfer ALT/SGPT 28 U/L (13-56); Albumin, Serum 3.4 g/dL (3.2-5.0); Alkaline Phosphatase 45 U/L (45-117); Anion Gap 5 (5-15); BUN 9 mg/dL (7-18); BUN/Creat Ratio 11.5 RATIO (10-20); CRP < 2.90 mg/L (0.0-3.0); Calcium,Total 8.3 mg/dL (8.5-10.1); Chloride 107 mmol/L (98-107); Cholesterol 264 mg/dL (200); Creatinine, Serum 0.78 mg/dL (0.55-1.02); EST Glomerular Filtration Rate 84 mL/min (>60); Est Glom Filt Rate - Afr Amer 101 mL/min (>60); Free T3 2.4 pg/mL (2.18-3.98); Globulin 3.7 g/dL (2.2-4.2); Glucose 107 mg/dL (74-106); High Density Lipoprotein 45 mg/dL; Protein, Total 7.1 g/dL (6.4-8.2); Sodium Level 138 mmol/L (136-145); T4 Free Direct 0.73 ng/dL (0.76-1.46); Thyroid Stim Hormone (TSH) 2.16 uIU/mL (0.358-3.74); Triglycerides 245 mg/dL; Very Low Density Lipoprotein 49 mg/dL (5-40)
== END | disposition home or self-care (01) ==
LOC: BFHLAB 10:06
PROVIDERS: PCP Family Medicine; Referring Provider Family Medicine; Visit Provider Family Medicine
DX: Z00.00 Encounter for general adult medical examination without abnormal findings (principal); M06.4 Inflammatory polyarthropathy; Z51.81 Encounter for therapeutic drug level monitoring; R53.83 Other fatigue
CPT/HCPCS: 36415; 80053; 80061; 84439; 84443; 84481; 85025; 85652; 86140

== ENCOUNTER → 2022-10-01 | Outpatient (CLI) | payer OTHER, SELFPAY ==
--- NOTE | 2022-10-01 12:22 | BI_ITS ---
MAMMOGRAPHY - BILATERAL SCREENING REASON FOR EXAM: Female, 47 years old. Routine annual screening examination. PERTINENT HISTORY: Non-contributory. TECHNIQUE: Digital bilateral breast mireya (3D mammographic acquisition) in the CC and MLO projections. 2-D mediolateral oblique (MLO) and craniocaudad (CC) views of both breasts were obtained. CAD: Full Field Digital Mammography with Computer Added Detection was performed. COMPARISON: Comparison is made with prior study June 02, 2021 and February 12, 2020. FINDINGS: Breast Composition: The breasts are heterogeneously dense, which may obscure small masses. There are no dominant masses or suspicious calcifications. Stable small benign-appearing bilateral axillary lymph nodes. No other significant abnormalities are identified. There has been no significant change since the prior study. BI/SCRN MAMM (CAD)W/MIREYA BILAT IMPRESSION: Stable bilateral screening mammogram. Yearly follow-up mammogram recommended. (A) ASSESSMENT CATEGORY: BIRADS Category 2: Benign. A letter regarding these results will be sent to the patient by the facility within 30 days. Approximately 10% of breast cancers are not detected by mammography. A normal mammogram should not delay biopsy of a clinically suspicious abnormality. [id number] Electronically Signed: Iain Rose MD at 13:34 EDT ,
== END | disposition home or self-care (01) ==
LOC: OPBI 12:21
PROVIDERS: PCP Family Medicine; Referring Provider Family Medicine; Visit Provider Family Medicine
DX: Z12.31 Encounter for screening mammogram for malignant neoplasm of breast (principal)
CPT/HCPCS: 77063; 77067

== ENCOUNTER → 2023-06-02 | Outpatient (CLI) | payer OTHER, SELFPAY ==
[2023-06-02 10:00] LABS: Absolute Lymphocyte Count 1.47 X10^3/uL (0.83-4.51); Basophil# 0.05 X10^3/uL; Basophil% 0.9 % (0-1); Eosinophil# 0.22 X10^3/uL; Eosinophils% 4.2 % (0-5); Hematocrit 38.9 % (37-47); Hemoglobin 12.2 g/dL (12.0-15.0); Lymphocyte # 1.47 X10^3/ul (0.83-4.51); Lymphocyte % 27.8 % (19-41); Mean Corp Hgb Conc 31.4 g/dL (32-36); Mean Corpuscular Hgb 27.7 pg (27.0-32.0); Mean Corpuscular Volume 88.2 fL (81-99); Mean Platelet Vol. 10.9 fl (6.2-12.0); Monocyte# 0.49 X10^3/uL; Monocyte% 9.3 % (0-10); NRBC Flagged by Analyzer 0 % (0-5); Neutrophil # 3.04 X10^3/uL (2.7-7.7); Neutrophil % 57.6 % (47-70); Platelet Count 264 K/mm3 (150-450); RBC Distribution Width CV 13.2 % (11.6-14.6); RBC Distribution Width SD 42.5 fl (35.1-43.9); Red Blood Count 4.41 M/mm3 (4.2-5.4); White Blood Count 5.3 K/mm3 (4.4-11.0)
[2023-06-02 10:09] LABS: Hemoglobin A1c 5.1 % (3.8-5.6)
[2023-06-02 10:16] LABS: ALB/GLOB Ratio 1.1 RATIO (0.9-2.4); AST(SGOT) 19 U/L (15-37); Alanine Aminotransfer ALT/SGPT 34 U/L (13-56); Albumin, Serum 3.8 g/dL (3.2-5.0); Alkaline Phosphatase 46 U/L (45-117); Anion Gap 4 (5-15); BUN 15 mg/dL (7-18); BUN/Creat Ratio 15.7 RATIO (10-20); Calcium,Total 8.6 mg/dL (8.5-10.1); Chloride 109 mmol/L (98-107); Cholesterol 188 mg/dL (200); Creatinine, Serum 0.95 mg/dL (0.55-1.02); EST Glomerular Filtration Rate 67 mL/min (>60); Est Glom Filt Rate - Afr Amer 81 mL/min (>60); Free T3 2.4 pg/mL (2.18-3.98); Globulin 3.5 g/dL (2.2-4.2); Glucose 98 mg/dL (74-106); High Density Lipoprotein 69 mg/dL; Potassium 3.7 mmol/L (3.5-5.1); Protein, Total 7.3 g/dL (6.4-8.2); Sodium Level 139 mmol/L (136-145); T4 Free Direct 0.83 ng/dL (0.76-1.46); Thyroid Stim Hormone (TSH) 2.58 uIU/mL (0.358-3.74); Triglycerides 87 mg/dL; Very Low Density Lipoprotein 17 mg/dL (5-40)
== END | disposition home or self-care (01) ==
LOC: MTLAB 07:25
PROVIDERS: PCP Family Medicine; Referring Provider Family Medicine; Visit Provider Family Medicine
DX: Z00.00 Encounter for general adult medical examination without abnormal findings (principal); M06.4 Inflammatory polyarthropathy; Z51.81 Encounter for therapeutic drug level monitoring; R53.83 Other fatigue; R73.01 Impaired fasting glucose
CPT/HCPCS: 36415; 80053; 80061; 83036; 84439; 84443; 84481; 85025

== ENCOUNTER 2023-09-27 16:02 | Emergency (ER) | payer OTHER, SELFPAY ==
[2023-09-27 16:04] VITALS: BP 138/93; PULSE 93; RESP 18; TEMP 36.6; BMI 25.3
[2023-09-27 16:07] VITALS: O2SAT 100
--- NOTE | 2023-09-27 16:07 | EKG12_ITS ---
Test Reason : SOB Blood Pressure : / mmHG Vent. Rate : 088 BPM Atrial Rate : 088 BPM P-R Int : 130 ms QRS Dur : 072 ms QT Int : 384 ms P-R-T Axes : 039 033 064 degrees QTc Int : 464 ms Normal sinus rhythm Normal ECG Confirmed by JOSE HUGGINS, JOSE ([id number]), clinical editor MARIO ALBERTO MCKEON ([id number]) on 09/28/2023 10:21:41 AM Referred By: Confirmed By:JOSE GARCIA MD
--- NOTE | 2023-09-27 16:09 | EDS_ITS ---
HPI History of Present Illness Chief Complaint: Shortness of Breath Narrative Narrative: 48-year-old female presenting with dizziness. She describes it as room spinning. Patient states she woke up normally and did not have any symptoms and then later in the day when she got to work she started to feel like she was spitting. She states it makes her feel shaky and nauseous. It became so bad at work that she had somebody check her blood pressure and she remembers it was in the 150 systolic. EMS was called because the patient was shaky and nauseous. Denies chest pain or shortness of breath. She is very anxious. Patient was given Zofran prior to arrival her nausea is improved. She still feels a little bit shaky. Denies headache, visual complaints. No history of vertigo. PFSH PFS Medical History DVT (deep venous thrombosis) Migraine Home Medications ?Medication ?Instructions ?Recorded ?Last Taken ?Type cephalexin 500 mg capsule 500 mg PO Q12 #10 CAPSULES 04/05/21 Unknown Rx erenumab-aooe 140 mg/mL mg subcut 04/05/21 Unknown History subcutaneous auto-injector (Aimovig Autoinjector) ubrogepant 100 mg tablet (Ubrelvy) mg 04/05/21 Unknown History hydroxyzine pamoate 25 mg capsule 25 mg PO TID PRN anxiety #14 caps 09/27/23 Unknown Rx (Vistaril) meclizine 25 mg tablet 25 mg PO 4X/DAY PRN PRN Dizziness 09/27/23 Unknown Rx #20 tabs Allergy/AdvReac Type Severity Reaction Status Date / Time topiramate (From Topamax) Allergy Itching Verified 09/17/18 23:13 Family History Father Hypertension Diabetes H/O aortic valve replacement Surgical History H/O sinus surgery Social History Smoking Status: Never smoker alcohol intake: current details: social substance use type: does not use caffeine: Yes what type of physical activity do you participate in: walking seatbelt use: always do you feel safe at home: Yes 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 [employer] ROS ROS ED ROS Narrative Shakiness Constitutional Constitutional ED: Denies chills, fever(s) or sweats Eyes Eyes: Denies blurry vision or change in vision ENT ENT ED: Reports other Details: Vertiginous dizziness ; Denies ear pain or sore throat Cardiovascular Cardiovascular: Denies chest pain, palpitations or racing heartbeat Respiratory/Chest Respiratory/Chest: Denies cough, dyspnea or sputum Gastrointestinal Gastrointestinal: Reports nausea; Denies abdominal pain, constipation, diarrhea or vomiting Genitourinary Genitourinary ED: Denies dysuria, hematuria or urinary frequency Musculoskeletal Musculoskeletal: Denies arthralgias, myalgias or neck pain Integumentary Denies abscess, Abrasions or rash Neurologic Neurologic: Denies headache(s), paresthesias or weakness Psychiatric Psychiatric: Denies anxiety, depression, suicidal ideation or suicidal thoughts Endocrine Endocrinology: Denies polydipsia or polyuria EXAM Physical Exam Const Vital Signs: 09/27/23 16:04 09/27/23 16:07 09/27/23 16:07 Temperature 98 F Temperature Source Oral Pulse Rate 93 Respiratory Rate 18 Respiratory Pattern Tachypnea Blood Pressure 138/93 H Blood Pressure Mean 108 Pulse Ox 100 Oxygen Delivery Method Room Air Room Air 09/27/23 18:03 09/27/23 19:51 Temperature 97.4 F L Temperature Source Pulse Rate 78 72 Respiratory Rate 18 18 Respiratory Pattern Blood Pressure 128/77 H 126/86 H Blood Pressure Mean 94 99 Pulse Ox 98 98 Oxygen Delivery Method Room Air Positive well nourished General Appearance ED: NAD; Negative for pallor HEENT Reports moist mucous membranes Eyes PERRL and EOMs intact bilaterally Neck no lymphadenopathy Chest Wall inspection of chest normal Resp normal respiratory effort Auscultation: Negative for rales, rhonchi or wheezes Cardio regular rate and regular rhythm Extremity normal to inspection Neuro oriented x3 and CN's II-XII intact bilaterally Sensorium / Orientation: alert Motor Exam: strength 5/5 throughout Psych Mood & Affect: anxious and tearful Skin no rashes or lesions noted General Skin Exam: Negative for jaundice or pallor MDM MDM MDM Narrative Medical decision making narrative: Differential includes vertigo, dysrhythmia, ACS, dehydration, anemia, electrolyte abnormalities, anxiety, pneumonia. CBC will be obtained to assess white blood cell count, hemoglobin, platelets. BMP to assess renal function, electrolytes, glucose. High-sensitivity troponin and EKG to assess for ischemia/dysrhythmia. Chest x-ray to rule out pneumonia. Patient was medicated with meclizine and phenergan. She does have some results with this and felt better for short while she started to feel like her chest was pounding. CBC showed normal white blood cell count 9.2. Hemoglobin 14.4. Platelets were normal at 329. Creatinine was slightly elevated at 1.17. Electrolytes were normal. She does have a low CO2. High-sensitivity troponin is 9. EKG shows a normal sinus rhythm at 88 bpm sinus. Change or dysrhythmia. Chest x-ray interpreted by myself shows no acute. I do believe the patient has a component of anxiety with this and I did give her 0.5 mg of Ativan and this improved her symptoms. She was able to ambulate in the hallway with a stable gait. I will discharge her home with meclizine and Vistaril. Recommend follow-up with PCP to ensure resolution. Return precautions were discussed. Impression: 1. Vertigo 2. Anxiety Lab Data Attestation: I reviewed the patient's lab results. Labs: Laboratory Results - last 24 hr 09/27/23 15:50 WBC 9.2 RBC 5.18 Hgb 14.4 Hct 44.1 MCV 85.1 MCH 27.8 MCHC 32.7 RDW Std Deviation 42.0 RDW Coeff of Alli 13.4 Plt Count 329 MPV 11.0 Immature Gran % (Auto) 0.300 Neut % (Auto) 74.0 H Lymph % (Auto) 18.1 L [place] % (Auto) 6.1 Eos % (Auto) 1.1 Baso % (Auto) 0.4 Absolute Neuts (auto) 6.8 Absolute Lymphs (auto) 1.66 Nucleated RBC % 0 Sodium 136 Potassium 3.5 Chloride 104 Carbon Dioxide 14.0 L Anion Gap 18 H BUN 16 Creatinine 1.17 H Estim Creat Clear Calc 60.15 Est GFR (MDRD) Af Amer 64 Est GFR (MDRD) Non-Af 53 L BUN/Creatinine Ratio 13.7 Glucose 159 H Calcium 10.3 H Troponin I High Sens 9 Radiography Diagnostic Testing: Clinical Impression(s) from Imaging Studies Chest X-Ray 09/27/23 16:45 IMPRESSION: Normal x-ray examination of the chest. Electronically Signed: Tomas Barragan MD at 16:55 EDT , Discharge Plan Triage Chief Complaint: Shortness of Breath ED Provider: Pelon Crowley Dx/Rx/DC Orders Instructions: ED Anxiety Reaction, ED BPV Vertigo Prescriptions: New hydroxyzine pamoate [Vistaril] 25 mg capsule 25 mg PO TID PRN (Reason: anxiety) Qty: 14 0RF meclizine 25 mg tablet 25 mg PO 4X/DAY PRN PRN (Reason: Dizziness) Qty: 20 0RF No Action Aimovig Autoinjector 140 mg/mL auto-injector SUBCUT Ubrelvy 100 mg tablet Patient Comments: take 1 tablet by mouth ONCE. MAY REPEAT AFTER 2 HOURS IF NEEDED (MAX 2 TABS PER 24 HOURS) cephalexin [cephalexin] 500 MG capsule 500 mg PO Q12 Qty: 10 0RF Primary Care Provider: Bea Archuleta Referrals: Bea Archuleta DO [Primary Care Provider] - Print Language: Ukrainian Disposition Disposition: Home, Self Care
[2023-09-27] MEDS: Meclizine HCl 25 MG Tablet PO (16:20)
[2023-09-27] MEDS: 0.9% Normal Saline (1000mL) 1,000 ML 999 ML IV (16:20)
[2023-09-27] MEDS: proMETHazine 25 MG/ML Syringe 12.5 MG IM (16:21)
[2023-09-27 16:24] LABS: Absolute Lymphocyte Count 1.66 X10^3/uL (0.83-4.51); Absolute Neutrophil Count 6.8 X10^3/uL (2.0-7.7); Basophil# 0.04 X10^3/uL; Basophil% 0.4 % (0-1); Eosinophils% 1.1 % (0-5); Hematocrit 44.1 % (37-47); Hemoglobin 14.4 g/dL (12.0-15.0); Lymphocyte # 1.66 X10^3/ul (0.83-4.51); Lymphocyte % 18.1 % (19-41); Mean Corp Hgb Conc 32.7 g/dL (32-36); Mean Corpuscular Hgb 27.8 pg (27.0-32.0); Mean Corpuscular Volume 85.1 fL (81-99); Monocyte# 0.56 X10^3/uL; Monocyte% 6.1 % (0-10); NRBC Flagged by Analyzer 0 % (0-5); Neutrophil # 6.79 X10^3/uL (2.7-7.7); Platelet Count 329 K/mm3 (150-450); RBC Distribution Width CV 13.4 % (11.6-14.6); Red Blood Count 5.18 M/mm3 (4.2-5.4); White Blood Count 9.2 K/mm3 (4.4-11.0)
[2023-09-27 16:39] LABS: Anion Gap 18 (5-15); BUN 16 mg/dL (7-18); BUN/Creat Ratio 13.7 RATIO (10-20); Calcium,Total 10.3 mg/dL (8.5-10.1); Chloride 104 mmol/L (98-107); Creatinine, Serum 1.17 mg/dL (0.55-1.02); EST Glomerular Filtration Rate 53 mL/min (>60); Est Glom Filt Rate - Afr Amer 64 mL/min (>60); Estimated Creatinine Clearance 60.15 ml/min; Glucose 159 mg/dL (74-106); Potassium 3.5 mmol/L (3.5-5.1); Sodium Level 136 mmol/L (136-145); Troponin-I HS 9 pg/mL (3.0-54.0)
--- NOTE | 2023-09-27 16:45 | RAD_ITS ---
STUDY: X-RAY CHEST REASON FOR EXAM: Female, 48 years old. chest pain TECHNIQUE: AP portable COMPARISON: None. FINDINGS: The lungs are clear and expanded. There is no demonstrated pleural abnormality. Normal size heart. Normal mediastinum and larry. Normal visualized pulmonary arteries. Normal visualized aortic arch and descending thoracic aorta. Normal visualized thoracic spine. Normal visualized ribs, clavicles, and shoulders. There is no demonstrated abnormality of the visualized soft tissue structures of the upper abdomen. RAD/Chest 1 View (Portable) IMPRESSION: Normal x-ray examination of the chest. Electronically Signed: Tomas Barragan MD at 16:55 EDT ,
[2023-09-27 18:03] VITALS: BP 128/77; PULSE 78; RESP 18; O2SAT 98
[2023-09-27] MEDS: LORazepam 2 MG/ML Syringe 0.5 MG IV (18:52)
[2023-09-27 19:51] VITALS: BP 126/86; PULSE 72; RESP 18; TEMP 36.3; O2SAT 98
== END 2023-09-27 20:00 | disposition home or self-care (01) ==
PROVIDERS: Emergency Provider Student in an Organized Health Care Education/Training Program; PCP Family Medicine; Visit Provider Student in an Organized Health Care Education/Training Program
DX: R42 Dizziness and giddiness (principal); F41.9 Anxiety disorder, unspecified
CPT/HCPCS: 71045; 80048; 84484; 85025; 93005; 96361; 96372; 96374; 99285; J7030; A4216

== ENCOUNTER → 2023-10-04 | Outpatient (CLI) | payer OTHER, SELFPAY ==
[2023-10-04 10:26] LABS: Absolute Lymphocyte Count 1.64 X10^3/uL (0.83-4.51); Absolute Neutrophil Count 3.2 X10^3/uL (2.0-7.7); Basophil# 0.05 X10^3/uL; Basophil% 0.8 % (0-1); Eosinophil# 0.55 X10^3/uL; Eosinophils% 9.2 % (0-5); Lymphocyte # 1.64 X10^3/ul (0.83-4.51); Lymphocyte % 27.6 % (19-41); Mean Corp Hgb Conc 31.6 g/dL (32-36); Mean Corpuscular Hgb 27.4 pg (27.0-32.0); Mean Corpuscular Volume 86.8 fL (81-99); Mean Platelet Vol. 11.1 fl (6.2-12.0); Monocyte# 0.51 X10^3/uL; Monocyte% 8.6 % (0-10); NRBC Flagged by Analyzer 0 % (0-5); Neutrophil # 3.19 X10^3/uL (2.7-7.7); Neutrophil % 53.6 % (47-70); Platelet Count 271 K/mm3 (150-450); RBC Distribution Width CV 13.3 % (11.6-14.6); RBC Distribution Width SD 41.9 fl (35.1-43.9); Red Blood Count 4.38 M/mm3 (4.2-5.4)
[2023-10-04 10:43] LABS: ALB/GLOB Ratio 0.9 RATIO (0.9-2.4); AST(SGOT) 11 U/L (15-37); Alanine Aminotransfer ALT/SGPT 19 U/L (13-56); Albumin, Serum 3.5 g/dL (3.2-5.0); Alkaline Phosphatase 41 U/L (45-117); Anion Gap 6 (5-15); BUN 14 mg/dL (7-18); BUN/Creat Ratio 13.6 RATIO (10-20); Calcium,Total 8.9 mg/dL (8.5-10.1); Chloride 107 mmol/L (98-107); Cholesterol 189 mg/dL (200); Creatinine, Serum 1.03 mg/dL (0.55-1.02); EST Glomerular Filtration Rate 61 mL/min (>60); Est Glom Filt Rate - Afr Amer 74 mL/min (>60); Free T3 2.1 pg/mL (2.18-3.98); Globulin 3.8 g/dL (2.2-4.2); Glucose 116 mg/dL (74-106); High Density Lipoprotein 58 mg/dL; Potassium 3.5 mmol/L (3.5-5.1); Protein, Total 7.3 g/dL (6.4-8.2); Sodium Level 139 mmol/L (136-145); T4 Free Direct 0.73 ng/dL (0.76-1.46); Thyroid Stim Hormone (TSH) 4.18 uIU/mL (0.358-3.74); Triglycerides 96 mg/dL; Very Low Density Lipoprotein 19 mg/dL (5-40)
== END | disposition home or self-care (01) ==
LOC: MTLAB 07:35
PROVIDERS: PCP Family Medicine; Referring Provider Family Medicine; Visit Provider Family Medicine
DX: Z51.81 Encounter for therapeutic drug level monitoring (principal); E03.9 Hypothyroidism, unspecified; E78.5 Hyperlipidemia, unspecified
CPT/HCPCS: 36415; 80053; 80061; 84439; 84443; 84481; 85025

== ENCOUNTER → 2023-11-03 | Outpatient (CLI) | payer OTHER, SELFPAY ==
[2023-11-03 10:31] LABS: Free T3 2.1 pg/mL (2.18-3.98); T4 Free Direct 0.77 ng/dL (0.76-1.46)
[2023-11-04 16:10] LABS: Thyroglobulin Antibody 2.4 IU/mL (0.0-0.9); Thyroid Peroxidase AB 15 IU/mL (0-34)
== END | disposition home or self-care (01) ==
LOC: MTLAB 07:26
PROVIDERS: PCP Family Medicine; Referring Provider Family Medicine; Visit Provider Family Medicine
DX: E03.9 Hypothyroidism, unspecified (principal)
CPT/HCPCS: 36415; 84439; 84443; 84481; 86376; 86800

== ENCOUNTER → 2023-12-02 | Outpatient (CLI) | payer OTHER, SELFPAY ==
--- NOTE | 2023-12-02 14:03 | BI_ITS ---
MAMMOGRAPHY - BILATERAL SCREENING REASON FOR EXAM: Female, 48 years old. Routine annual screening examination. PERTINENT HISTORY: Non-contributory. TECHNIQUE: Digital bilateral breast mireya (3D mammographic acquisition) in the CC and MLO projections. 2-D mediolateral oblique (MLO) and craniocaudad (CC) views of both breasts were obtained. CAD: Full Field Digital Mammography with Computer Added Detection was performed. COMPARISON: Comparison is made with prior study October 01, 2022 and June 02, 2021. FINDINGS: Breast Composition: The breasts are heterogeneously dense, which may obscure small masses. There are no dominant masses or suspicious calcifications. No other significant abnormalities are identified. There has been no significant change since the prior study. BI/SCRN MAMM (CAD)W/MIREYA BILAT IMPRESSION: Stable bilateral screening mammogram. Yearly follow-up mammogram recommended. (A) ASSESSMENT CATEGORY: BIRADS Category 1: Negative. A letter regarding these results will be sent to the patient by the facility within 30 days. Approximately 10% of breast cancers are not detected by mammography. A normal mammogram should not delay biopsy of a clinically suspicious abnormality. [id number] Electronically Signed: Iain Rose MD at 15:52 EDT ,
== END | disposition home or self-care (01) ==
LOC: OPBI 14:02
PROVIDERS: PCP Family Medicine; Referring Provider Family Medicine; Visit Provider Family Medicine
DX: Z12.31 Encounter for screening mammogram for malignant neoplasm of breast (principal)
CPT/HCPCS: 77063; 77067

== ENCOUNTER → 2025-01-11 | Outpatient (CLI) | payer OTHER, SELFPAY ==
[2025-01-11 10:18] LABS: Hematocrit 41.8 % (37-47); Hemoglobin 14.3 g/dL (12.0-15.0); Immature Granulocytes Count 0.040 X10^3/uL (0.0-0.0); Mean Corp Hgb Conc 34.2 g/dL (32-36); Mean Corpuscular Volume 90.7 fL (81-99); Mean Platelet Vol. 10.3 fl (6.2-12.0); NRBC Flagged by Analyzer 0 % (0-5); Platelet Count 242 K/mm3 (150-450); RBC Distribution Width CV 12.3 % (11.6-14.6); RBC Distribution Width SD 40.2 fl (35.1-43.9); Red Blood Count 4.61 M/mm3 (4.2-5.4); White Blood Count 6.1 K/mm3 (4.4-11.0)
[2025-01-11 11:45] LABS: AST(SGOT) 16 U/L (<=31); Alanine Aminotransfer ALT/SGPT 15 U/L (<=34); Albumin, Serum 4.3 g/dL (3.5-5.0); Alkaline Phosphatase 42 U/L (35-104); Anion Gap 9 (5-15); BUN 12 mg/dL (4-19); BUN/Creat Ratio 13.1 RATIO (10-20); CORTISOL AM 10.10 ug/dL (6.02-18.40); Calcium,Total 9.3 mg/dL (7.6-11.0); Carbon Dioxide 25.3 mmol/L (21.0-32.0); Chloride 105 mmol/L (98-108); Cholesterol 198 mg/dL (<=200); Ferritin 66 ng/mL (22-378); Globulin 2.9 g/dL (2.2-4.2); Glucose 111 mg/dL (70-99); Low Density Lipoprotein Calc. 126 mg/dL; Potassium 3.8 mmol/L (3.3-5.1); Triglycerides 119 mg/dL; Very Low Density Lipoprotein 24 mg/dL (5-40); Vitamin B12 1390 pg/mL (180-914); Vitamin D,25 Hydroxy 66.7 ng/mL (30-100); cholesterol:hdl ratio screen 3.91
[2025-01-11 11:59] LABS: CRP < 3.00 mg/L (0.0-3.0); Iron 99 ug/dL (50-170); Uric Acid 5.0 mg/dL (2.6-6.0)
[2025-01-14 19:07] LABS: ANTINUCLEAR ANTIBODIES DIRECT Negative (Negative)
== END | disposition home or self-care (01) ==
LOC: MTLAB 09:20
PROVIDERS: PCP Family Medicine; Referring Provider Family Medicine; Visit Provider Family Medicine
DX: Z51.81 Encounter for therapeutic drug level monitoring (principal); M06.4 Inflammatory polyarthropathy; R53.83 Other fatigue; M25.50 Pain in unspecified joint; E78.5 Hyperlipidemia, unspecified; E55.9 Vitamin D deficiency, unspecified
CPT/HCPCS: 36415; 80053; 80061; 82306; 82533; 82607; 82728; 83540; 84550; 85025; 85652; 86038; 86140; 86200; 86431

== ENCOUNTER → 2025-02-22 | Outpatient (CLI) | payer OTHER, SELFPAY ==
--- NOTE | 2025-02-22 12:53 | ECHOD_ITS ---
Reason For Study Reason For Study: MITRAL INSUFFICIENCY/EDEMA Procedure This was a 2D Doppler, Color Flow transthoracic echocardiogram. The patient is in sinus rhythm. Exam performed in department. Left Ventricle Normal-sized left ventricle. Normal left ventricular wall thickness. Left ventricular EF by Izquierdo's biplane: 65%. Normal diastolic function. No regional wall motion abnormalities noted. Right Ventricle Normal right ventricle. Normal systolic function. RVSP is estimated at less than 30 mmHg. Atria The left and right atria are normal. Normal atrial septum. Right atrial pressure estimated: 3 mmHg. Mitral Valve Normal mitral valve. Mild mitral regurgitation. No mitral stenosis. Tricuspid Valve Normal tricuspid valve. No tricuspid stenosis. Mild tricuspid regurgitation. Aortic Valve Trileaflet aortic valve. No aortic regurgitation. No hemodynamically significant aortic stenosis. Pulmonic Valve Normal pulmonic valve. Mild pulmonic regurgitation. No pulmonic stenosis. Great Vessels Normal aortic root. Normal ascending aorta. Pericardium/Pleural No pericardial effusion. Epicardial fat. MMode/2D Measurements & Calculations LVIDd: 4.3 cm IVSd: 0.87 cm Ao root diam: 3.2 cm LVIDs: 3.0 cm LVPWd: 0.62 cm RVDd: 2.9 cm FS: 29.8 % LAV(MOD-bp): 25.2 ml LVAd ap4: 26.7 cm2 LVAd ap2: 26.1 cm2 LAV(MOD-bp) Indexed: 13.7 ml/m2 LVLd ap4: 8.0 cm LVLd ap2: 7.8 cm LAV(MOD-sp2): 26.4 ml EDV(MOD-sp4): 70.5 ml EDV(MOD-sp2): 71.1 ml LAV(MOD-sp4): 22.5 ml EDV(sp4-el): 75.5 ml EDV(sp2-el): 74.0 ml LVAs ap4: 14.7 cm2 LVAs ap2: 13.7 cm2 LVLs ap4: 6.5 cm LVLs ap2: 6.5 cm ESV(MOD-sp4): 27.4 ml ESV(MOD-sp2): 23.4 ml ESV(sp4-el): 27.9 ml ESV(sp2-el): 24.5 ml EF(MOD-sp4): 61.2 % EF(MOD-sp2): 67.1 % EF(sp4-el): 63.0 % SV(MOD-sp4): 43.1 ml SV(MOD-sp2): 47.7 ml EDV(MOD-bp): 71.7 ml SI(MOD-sp4): 23.4 ml/m2 SI(MOD-sp2): 25.9 ml/m2 ESV(MOD-bp): 25.2 ml EF(MOD-bp): 64.9 % SV(sp4-el): 47.6 ml LA dimension(2D): 3.0 cm LA A4 area: 11.1 cm2 RA A4 area: 11.6 cm2 TAPSE: 1.9 cm Time Measurements MV dec time: 0.28 sec Doppler Measurements & Calculations MV E max tobin: 68.3 cm/sec Lat Peak E' Tobin: 9.7 cm/sec Med Peak E' Tobin: 7.8 cm/sec MV A max tobin: 95.0 cm/sec E/E' lat: 7.0 E/E' med: 8.7 MV E/A: 0.72 PA V2 max: 72.8 cm/sec TR max tobin: 190.4 cm/sec MV dec slope: 243.1 cm/sec2 TR max P.5 mmHg ECHO/Echo Complete Interpretation Summary Normal left ventricular systolic function with EF: 65% by Izquierdo's biplane. Normal left ventricular diastolic function Normal left ventricular wall motion Normal right ventricular systolic function No hemodynamically significant valvular disease Ordering Physician: Bea Archuleta Referring Physician: Bea Archuleta Performed By: Jack Gonzalez RDCS
== END | disposition home or self-care (01) ==
LOC: CVS 12:51
PROVIDERS: PCP Family Medicine; Referring Provider Family Medicine; Visit Provider Family Medicine
DX: I34.0 Nonrheumatic mitral (valve) insufficiency (principal); R60.9 Edema, unspecified
CPT/HCPCS: 93306

== ENCOUNTER → 2025-02-25 | Outpatient (CLI) | payer OTHER, SELFPAY ==
--- NOTE | 2025-02-25 15:09 | BI_ITS ---
EXAM: SCRN MAMM (CAD)W/MIREYA BILAT DATE: 02/25/2025 CLINICAL HISTORY: F, Age 49 y/o , SCREENING TECHNIQUE: Procedure Code: [id number] Modality: MG Procedure: SCRN MAMM (CAD)W/MIREYA BILAT COMPARISON: Prior exam(s) were compared FINDINGS: TISSUE DENSITY: The breasts are heterogeneously dense, which may obscure small masses. Bilateral Breast Mammographic Findings: No significant masses, calcifications or other abnormalities are identified. BI/SCRN MAMM (CAD)W/MIREYA BILAT IMPRESSION: No mammographic evidence of malignancy. OVERALL FINAL ASSESSMENT BI-RADS 1: NEGATIVE. RECOMMENDATION: Routine annual follow-up in 1 Year Additional Recommendation none A letter with findings and recommendations will be mailed to the patient. Reading Location: [id number]
== END | disposition home or self-care (01) ==
PROVIDERS: PCP Family Medicine; Referring Provider Family Medicine; Visit Provider Family Medicine
DX: Z12.31 Encounter for screening mammogram for malignant neoplasm of breast (principal)
CPT/HCPCS: 77063; 77067